=== PATIENT | male | born 1965 | race Caucasian/White ===

== ENCOUNTER 2018-12-20 22:05 | Inpatient (IN) | payer BC ==
[~2018-12-20] VITALS: Ht 154.7 cm; Wt 83.9 kg
[2018-12-20] MEDS ORDERED: REVLIMID10 MG PO (22:43)
[2018-12-20] MEDS ORDERED: NORCO 5-325 TA1 EACH ORAL (22:43)
[2018-12-20] MEDS ORDERED: VALACYCLOVIR500 MG ORAL (22:43)
[2018-12-20] MEDS ORDERED: LYRICA75 M1 ORAL (22:43)
[2018-12-20] MEDS ORDERED: ASPIR 8181 MG ORAL (22:43)
[2018-12-20] MEDS ORDERED: DEXAMETHASONE2 MG PO (22:43)
[2018-12-20] MEDS ORDERED: ALLOPURINOL300 M1 ORAL (22:43)
--- NOTE | 2018-12-20 22:46 | NUR ---
ED Nurse Note: PT CAME TO ED FROM HOME. PT HAS HISTORY OF MYLEOMA, PER PT HIS PMD SAID IF HE BEGINS TO LOSE CONTROL ON URINARY CONTINENCE GO TO ER IMMEDIATELY. LATTER STATES PT VISIT.
[2018-12-20 22:47] VITALS: BP 158/97
[2018-12-20 22:58] LABS: HEMATOCRIT 32.6 % (42.0-52.0); HEMOGLOBIN 11.5 G/DL (14.2-18.0); MEAN CORPUSCULAR VOLUME 94 FL (80-99); PLATELET COUNT 311 K/UL (150-450); RED BLOOD COUNT 3.47 M/UL (4.70-6.10); RED CELL DISTRIBUTION WIDTH 11.8 % (11.6-14.8); WHITE BLOOD COUNT 16.7 K/UL (4.8-10.8)
[2018-12-20 22:59] LABS: BASOPHILS % (AUTO) 0.7 % (0.0-2.0); EOSINOPHILS % (AUTO) 0.1 % (0.0-3.0); LYMPHOCYTES % (AUTO) 5.5 % (20.0-45.0); MONOCYTES % (AUTO) 4.1 % (1.0-10.0); NEUTROPHILS % (AUTO) 89.7 % (45.0-75.0)
[2018-12-20 23:09] LABS: ANION GAP 13 mmol/L (5-15); BLOOD UREA NITROGEN 21 mg/dL (7-18); CALCIUM 8.1 MG/DL (8.5-10.1); CARBON DIOXIDE 24 MMOL/L (21-32); CHLORIDE 96 MMOL/L (98-107); CREATININE 0.9 MG/DL (0.55-1.30); POTASSIUM 4.2 MMOL/L (3.5-5.1); SODIUM 133 MMOL/L (136-145)
[2018-12-20 23:12] LABS: INR 0.9 (0.9-1.1)
[2018-12-20 23:14] LABS: ALANINE AMINOTRANSFERASE 83 U/L (12-78); ALBUMIN 3.4 G/DL (3.4-5.0); ALKALINE PHOSPHATASE 52 U/L (46-116); ASPARTATE AMINO TRANSFERASE 17 U/L (15-37); BILIRUBIN,TOTAL 0.4 MG/DL (0.2-1.0)
--- NOTE | 2018-12-20 23:15 | Emergency Room Report ---
History of Present Illness General Chief Complaint: General Complaint Source: Patient Present Illness HPI Patient present with complaints of complex medical history Patient has previous history of multiple myeloma After chemotherapy was felt to be in remission Recently the patient again was diagnosed with multiple myeloma MRI recently about 10 days ago showing mass in the T11-T12 region Patient has spoken to his back specialist Was reported to return to the emergency room if there is any urinary symptoms Patient reports that earlier this evening before wanting to go to the restroom he had loss of urination He has been having difficulty with ambulation and pain in his lower extremities for the past several months Denies any change with weakness in the legs Denies any change with neuropathy Denies any fevers or chills patient also had initial chemotherapy this past Allergies: Coded Allergies: LATEX (Verified Allergy, Unknown, 12/20/18) Patient History Past Medical History: see triage record Pertinent Family History: none Reviewed Nursing Documentation: PMH: Agreed; PSxH: Agreed Nursing Documentation-PMH Hx Cancer: Yes - MULTIPLE MYELOMA Review of Systems All Other Systems: negative except mentioned in HPI Physical Exam Vital Signs Date Time Temp Pulse Resp B/P (MAP) Pulse Ox O2 Delivery O2 Flow Rate FiO2 12/20/18 22:33 98.2 100 16 158/97 100 Room Air Sp02 EP Interpretation: reviewed, normal General Appearance: well appearing, no apparent distress Head: normocephalic, atraumatic Eyes: bilateral eye PERRL, bilateral eye EOMI ENT: normal pharynx Neck: supple Respiratory: lungs clear, no retraction, no accessory muscle use Cardiovascular #1: regular rate, rhythm Gastrointestinal: non tender, soft Genitourinary: no CVA tenderness Musculoskeletal: other - Patient moving both lower extremities without focal deficit, sensory is intact Neurologic: alert, oriented x3 Skin: no rash, warm/dry Lymphatic: no adenopathy Medical Decision Making Diagnostic Impression: Primary Impression: Multiple myeloma Additional Impression: Loss of bladder control ER Course Patient presents with a complex medical history Recent MRI shows concerning findings Case was discussed with Dr. Lara He is aware the patient has had a recent consultation Multiple imaging was obtained as well It is not clear if the recent imaging had shown similar findings however radiology is reading multiple metastatic disease unclear if these are related to possible multiple myeloma lesions Patient received further steroids may ER IV hydration And requires inpatient evaluation Labs Test 12/20/18 22:45 White Blood Count 16.7 K/UL (4.8-10.8) Red Blood Count 3.47 M/UL (4.70-6.10) Hemoglobin 11.5 G/DL (14.2-18.0) Hematocrit 32.6 % (42.0-52.0) Mean Corpuscular Volume 94 FL (80-99) Mean Corpuscular Hemoglobin 33.1 PG (27.0-31.0) Mean Corpuscular Hemoglobin Concent 35.3 G/DL (32.0-36.0) Red Cell Distribution Width 11.8 % (11.6-14.8) Platelet Count 311 K/UL (150-450) Mean Platelet Volume 6.0 FL (6.5-10.1) Neutrophils (%) (Auto) 89.7 % (45.0-75.0) Lymphocytes (%) (Auto) 5.5 % (20.0-45.0) Monocytes (%) (Auto) 4.1 % (1.0-10.0) Eosinophils (%) (Auto) 0.1 % (0.0-3.0) Basophils (%) (Auto) 0.7 % (0.0-2.0) Prothrombin Time 9.6 SEC (9.30-11.50) Prothromb Time International Ratio 0.9 (0.9-1.1) Activated Partial Thromboplast Time 22 SEC (23-33) Sodium Level 133 MMOL/L (136-145) Potassium Level 4.2 MMOL/L (3.5-5.1) Chloride Level 96 MMOL/L (98-107) Carbon Dioxide Level 24 MMOL/L (21-32) Anion Gap 13 mmol/L (5-15) Blood Urea Nitrogen 21 mg/dL (7-18) Creatinine 0.9 MG/DL (0.55-1.30) Estimat Glomerular Filtration Rate > 60 mL/min (>60) Glucose Level 94 MG/DL (74-106) Calcium Level 8.1 MG/DL (8.5-10.1) Total Bilirubin 0.4 MG/DL (0.2-1.0) Aspartate Amino Transf (AST/SGOT) 17 U/L (15-37) Alanine Aminotransferase (ALT/SGPT) 83 U/L (12-78) Alkaline Phosphatase 52 U/L (46-116) Total Protein 6.8 G/DL (6.4-8.2) Albumin 3.4 G/DL (3.4-5.0) Globulin 3.4 g/dL Albumin/Globulin Ratio 1.0 (1.0-2.7) Rhythm Strip Diag. Results EP Interpretation: yes Rate: 66 Rhythm: NSR, no PVC's, no ectopy Chest X-Ray Diagnostic Results Chest X-Ray Diagnostic Results : Chest X-Ray Ordered: Yes # of Views/Limited/Complete: 1 View Indication: Chest Pain EP Interpretation: Yes Interpretation: no consolidation, no effusion, no pneumothorax Impression: No acute disease Electronically Signed by: Kamar Quezada DO CT/MRI/US Diagnostic Results CT/MRI/US Diagnostic Results : Impression MRI T-spine:Refer to the final report for full specifics, report at this time reading multiple metastatic disease multiple thoracic spine. T12 compression fracture with retropulsion MRI L-spine:Refer to the note for the full specifics, similar to the T-spine CT T-spineRead by radiologist multiple metastatic disease lesions Last Vital Signs Date Time Temp Pulse Resp B/P (MAP) Pulse Ox O2 Delivery O2 Flow Rate FiO2 12/20/18 22:47 98.2 100 16 158/97 100 Room Air Status: improved Disposition: ADMITTED INPATIENT Condition: Serious Referrals: NON PHYSICIAN (PCP) Kamar Quezada DO Dec 20, 2018 23:15
[2018-12-20] MEDS ORDERED: Solu-MEDROL 125mg Inj IVP ONE (23:30)
[2018-12-20] MEDS ORDERED: Morphine Sulfate 4mg/ml Inj (IV USE ONLY) IVP ONE (23:30)
--- NOTE | 2018-12-20 23:38 | NUR ---
ED Nurse Note: ERMD ORDERED MORHPINE FOR PT, INFORMED ERMD, THAT PT HAS NO PAIN AT THE MOMENT. PER ERMD UTILIZE PRN.
[2018-12-20] MEDS ORDERED: D5 1/2NS 1,000 ML IV SCH (23:52)
--- NOTE | 2018-12-20 23:52 | NUR ---
ED Nurse Note: PT WENT TO CT
--- NOTE | 2018-12-20 23:52 | NUR ---
ED Nurse Note: TELEPHONE REPORT GIVEN TO DYAN HENNESSY
[2018-12-21] VITALS (9 sets, daily range): BP systolic 103–128; BP diastolic 61–78
[2018-12-21] MEDS ORDERED: LORazepam Inj 2mg/ml 1ml IV PRN
[2018-12-21] MEDS ORDERED: Miralax 17gm pkt ORAL PRN
[2018-12-21] MEDS ORDERED: Zolpidem 5mg tab ORAL PRN
[2018-12-21] MEDS ORDERED: HYDROcodone/Acetamin 5/325 tab ORAL PRN
[2018-12-21] MEDS ORDERED: Mylanta II UD 30ml ORAL PRN
[2018-12-21] MEDS ORDERED: Morphine Sulfate 4mg/ml Inj (IV USE ONLY) IVP PRN
[2018-12-21] MEDS ORDERED: Morphine Sulfate 2mg/ml Inj(IV/IM USE ONLY) IVP PRN
--- NOTE | 2018-12-21 00:25 | NUR ---
ED Nurse Note: PT WAS TAKEN TO MRI WITH PHONG MOODY. PT WAS SENT MS UNIT WITH MONITOR, AND ALL BELONGINGS, SKIN INTACT, PT IS AOX4. VSS, DENIES PAIN AT THE MOMENT
--- NOTE | 2018-12-21 02:30 | NUR ---
NURSE NOTES: Patient received. patient in no acute distress at this time. patient complains of no pain at this time. patient awake and alert x4. patient IV intact and asymptomatic call light within reach. bed in lowest position and locked. wheelchair at bedside. will continue to monitor.
--- NOTE | 2018-12-21 04:32 | NUR ---
NURSE NOTES: patient has been on the floor for over 2 hours. i have called and left messages for Dr. Neves and i have not heard back yet. i informed the nursing forest fire specialist supervisor and my charge nurse and both area aware. will continue to call. also reached out ot dr. bonilla to ask if he can put orders in. have not heard back from [facility] either.
[2018-12-21 06:15] LABS: HEMATOCRIT 31.4 % (42.0-52.0); MEAN CORPUSCULAR VOLUME 95 FL (80-99); PLATELET COUNT 279 K/UL (150-450); RED CELL DISTRIBUTION WIDTH 12.1 % (11.6-14.8); WHITE BLOOD COUNT 18.9 K/UL (4.8-10.8)
[2018-12-21 06:53] LABS: ALANINE AMINOTRANSFERASE 71 U/L (12-78); ALBUMIN 3.1 G/DL (3.4-5.0); ALKALINE PHOSPHATASE 46 U/L (46-116); ANION GAP 10 mmol/L (5-15); ASPARTATE AMINO TRANSFERASE 12 U/L (15-37); BILIRUBIN,TOTAL 0.5 MG/DL (0.2-1.0); BLOOD UREA NITROGEN 26 mg/dL (7-18); CALCIUM 7.9 MG/DL (8.5-10.1); CARBON DIOXIDE 25 MMOL/L (21-32); CHLORIDE 97 MMOL/L (98-107); CREATININE 0.8 MG/DL (0.55-1.30); POTASSIUM 4.4 MMOL/L (3.5-5.1); SODIUM 132 MMOL/L (136-145)
--- NOTE | 2018-12-21 07:23 | NUR ---
NURSE NOTES: orders were put in. tristen schedualed to have surgery this morning. Dr. Abrams was called and left a message to put in order for surgery this morning. endorsed to morning shift nurse.
--- NOTE | 2018-12-21 07:24 | NUR ---
HAND-OFF: Report given to thomas bergeron.
--- NOTE | 2018-12-21 07:43 | NUR ---
NURSE NOTES: During shift change patient alert awake with out no distress, call light with in reach bed at low position and locked, pt. aware pending surgery plan for today no consent order yet waiting the call return from surgeon. pt. NPO and aware not to eat.
[2018-12-21] MEDS: Lyrica 25mg cap ORAL SCH ×3 (09:00→18:00)
[2018-12-21] MEDS: Heparin 5000 units/ml inj SUBQ SCH ×2 (09:00→20:45)
--- NOTE | 2018-12-21 09:30 | NUR ---
NURSE NOTES: Patient refused oral medication stating " I might vomit and i want to skip morning dose" RN explained Dr. Grewal aware and ok to take medication still refused.
--- NOTE | 2018-12-21 09:48 | Diagnostic Imaging Report ---
Indication: Back pain, history of multiple myeloma Technique: Spiral acquisitions obtained through the thoracic spine. No IV contrast utilized. Multiplanar reconstructions were generated. Total dose length product 1323.45 mGycm. CTDIvol(s) 32.81 mGy. Dose reduction achieved using automated exposure control Comparison: none Findings: There is a large mass occupying most of the T12 vertebral body, also destroying the right pedicle. There is also a large extraspinal component. This mass measures approximately 5 x 3.6 cm in diameter, uncertain craniocaudal dimensions. A separate lesion is seen in the anterior aspect of the T12 vertebral body. There is approximately 20% height loss of the T12 vertebral body and some sclerosis. Lesion also extends into the spinal canal, but extent of spinal canal involvement is uncertain as the lesion is isoattenuating with cord. The sagittal images suggest involvement of most of the spinal canal with extension cephalad posterior to T11. There is evidence of tumor involving and expanding the T11-12 neural foramen. Multiple osteolytic lesions are seen elsewhere, including the posterior T11, anterior T10, anterior T9 vertebral bodies, right fifth rib, T4 vertebral body, T3 vertebral body, T2 spinous process. There are also osteolytic lesions involving the L1 and L2 vertebral bodies. The bony alignment is normal. The remaining vertebral body heights are preserved. The disc spaces are preserved. No other acute fractures. The remaining included extraspinal soft tissues are unremarkable. Impression: Positive for soft tissue mass involving the T12 vertebral body, posterior elements, and adjacent spinal canal as well as significant extraspinal involvement. Spinal cord compression is possible at this level. There is a mild compression fracture deformity as well, presumably pathologic compression fracture, age indeterminate Evidence of extensive metastatic involvement in other vertebral segments, as detailed above. MRI is recommended to better characterize findings most likely represent myelomatous deposits, given known history of multiple myeloma. This agrees with the preliminary interpretation provided overnight by [employer] teleradiology service. The CT scanner at [facility] is accredited by the [employer] and the scans are performed using protocols designed to limit radiation exposure to as low as reasonably achievable to attain images of sufficient resolution adequate for diagnostic evaluation.
--- NOTE | 2018-12-21 10:32 | Diagnostic Imaging Report ---
Indication: Back pain, history of multiple myeloma, recent history of lower thoracic spine mass Technique: Sagittal T1 and T2 fast spin echo, sagittal STIR, axial T1 and T2 fast spin-echo images of the lumbar spine Comparison: Reference made to thoracic spine CT scan performed one hour earlier Findings: There is a mass involving most of the T12 vertebral body. This extends into the right T12 pedicle and the pedicular portion of the mass extends into the spinal canal, occupying most of the spinal canal and compressing the distal cord and conus medullaris. The posterior vertebral body component of the mass also protrudes posteriorly into the spinal canal, protruding approximately 8 mm posterior to the posterior margin of the vertebral body. The mass also occupies the right T11-12 neural foramen. The intraspinal component of the mass coming off of the pedicle measures approximately 16 cm transverse by 13 cm AP by 4.8 cm craniocaudad. It is predominantly on the right side of the spinal canal. The combination of mass effect narrows the spinal canal by approximately 80% and there is complete obliteration of the surrounding cerebrospinal fluid. The mass demonstrates very low T1 signal and high T2 signal. There is approximately 20% loss of height of the vertebral body. Other masses are demonstrated within the L1 and L2 vertebral bodies, as well as within posterior T11.. These do not involve the spinal canal. Masses are also seen in the right side of the sacrum and in the bilateral iliac bones The lumbar vertebral body heights are preserved. The lumbar disc spaces are preserved. Below T12, no significant disc bulge or protrusion, spinal stenosis, or neural foraminal stenosis. There is distention of the bladder. The included extra spinal soft tissues are otherwise unremarkable. Impression: Extensive T12 lesion, also described on separate thoracic spine MRI report, resulting in compression of the distal cord, conus medullaris, and proximal cauda equina as well as a T12 pathologic compression fracture Other lesions, presumably disseminated multiple myeloma given stated clinical history, within T11, L1, L2, the sacrum, and bilateral iliac bones. No evidence of neural compromise or pathologic fracture related to such Distended bladder This agrees with the preliminary interpretation provided overnight by [employer] teleradiology service.
--- NOTE | 2018-12-21 10:37 | Diagnostic Imaging Report ---
Indications: Back pain Technique: Spiral acquisitions obtained through the lumbar spine. Multiplanar reconstructions were generated. No IV contrast utilized. Total dose length product 541.08 mGycm. CTDIvol(s) 17.94 mGy. Dose reduction achieved using automated exposure control Comparison: Lumbar spine MRI of 8 hours earlier Findings: There is an extensive osteolytic lesion involving the T12 vertebral body, right-sided posterior elements, and extending into the spinal canal, described in detail on separate thoracic spine CT and MRI. Osteolytic lesions are seen involving the right anterolateral L1 vertebral body, the anterior L2 vertebral body, the right sacrum, and bilateral iliac bones At L4-5, there is circumferential annular bulge which does not significantly compromise the spinal canal or neural foramina. At the other levels, no significant disc bulge or protrusion, spinal stenosis, or neural foraminal stenosis. There is mild vacuum disc formation at T12-L1. The remaining discs are preserved. A punctate calcification is seen in a right renal lower pole calyx. The bladder is massively distended. Impression: T12 extensive osteolytic lesion, described in detail on separate thoracic spine CT reports, resulting in the region of the spinal canal and a T12 compression fracture. Other osteolytic lesions seen in the L1 and L2 vertebral bodies, right sacrum, and bilateral iliac bones. Most likely myeloma deposits given stated clinical history of multiple myeloma Massively distended bladder Nonobstructive right lower pole renal calyceal calculus incidentally noted The CT scanner at [facility] is accredited by the [employer] and the scans are performed using protocols designed to limit radiation exposure to as low as reasonably achievable to attain images of sufficient resolution adequate for diagnostic evaluation.
--- NOTE | 2018-12-21 10:46 | Diagnostic Imaging Report ---
Indication: Back pain, history multiple myeloma, unable to urinate Technique: Sagittal T1 fast spin echo, sagittal T2 fast echo, sagittal STIR, axial T2 fast spin echo images were obtained through the thoracic spine Comparison: none Findings: There is a large mass demonstrating decreased T1 signal, mildly decreased T2 signal, markedly increased STIR signal involving the T12 vertebral body. Posteriorly, this invades into the spinal canal occupying about half of the anterior diameter of the spinal canal. This lesion also extends into the right pedicle, and the periventricular component results in the large pedunculated extra-axial mass within the right side of the spinal canal which measures approximately 13 mm AP by 12 mm transverse by 45 mm craniocaudad. This component extends cephalad posterior to the T11-12 disc and T11 vertebral body. The posterior and the paraventricular component result in approximately 80% narrowing of the spinal canal at this level, with lateral displacement and compression of the distal cord, conus medullaris, and proximal cauda equina. There is mild cord edema at this level. There is approximate 20% loss of height of the T12 vertebral body. There is a lesion involving and expanding the T2 spinous process. Other lesions are identified within questionably the T3 spinous process, within the T3 and T4 vertebral bodies, within the T9 vertebral body and right pedicle, small focus within the T10 vertebral body, and a lesion within the posterior left side of the T11 vertebral body. The T11 lesion very slightly invades the anterior left lateral aspect of the spinal canal and indents the dura. The included extra spinal soft tissues are unremarkable. Impression: Extensive tumor involving the T12 vertebral body, with invasion of the spinal canal, evidence of distal cord/conus medullaris/proximal cauda equina compression, as well as a pathologic T12 compression fracture. Evidence of a slight degree of myelomalacia as a result Multiple other deposits of tumor as detailed on a level by level basis above. Note that there is minimal spinal canal invasion by the T10-11 lesion. Findings most likely represent myelomatous deposits, given stated clinical history of multiple myeloma.. This agrees with the preliminary interpretation provided overnight by [employer].
--- NOTE | 2018-12-21 10:50 | Diagnostic Imaging Report ---
Indication: Cough Technique: One view of the chest Comparison: none Findings: Lungs and pleural spaces are clear. Heart size is normal Impression: No acute process
[2018-12-21] MEDS ORDERED: Vancomycin 1gm vial IVPB ONE (10:52)
[2018-12-21] MEDS ORDERED: Thrombin 5000 units TOPIC ONE ×3 (10:53→13:14)
[2018-12-21] MEDS ORDERED: Bacitracin 50000 Units Vial ONE ×3 (10:53→15:50)
[2018-12-21] MEDS ORDERED: Gelfoam Size TOPIC ONE (10:53)
[2018-12-21] MEDS ORDERED: Bupivacaine w/Epi 0.5% 30ml Vial INJ ONE (10:53)
--- NOTE | 2018-12-21 10:53 | History and Physical ---
History of Present Illness General Date patient seen: Dec 21, 2018 Reason for Hospitalization: General Complaint Present Illness HPI 53 year old male with hx of Multiple myeloma s/p chemo, and Decadron, presented to ER with CC of loss of control of bladder. An MRI of spine showed " presumably disseminated multiple myeloma given stated clinical history, within T11, L1, L2, the sacrum, and bilateral iliac bones". pt I admitted to surgical unit for further evaluation. Allergies: Coded Allergies: LATEX (Verified Allergy, Unknown, 12/20/18) Medication History Scheduled Allopurinol* (Allopurinol*), 300 MG ORAL DAILY, (Reported) Aspirin* (Aspir 81*), 81 MG ORAL DAILY, (Reported) Dexamethasone* (Decadron*), 8 MG PO QID, (Reported) Lenalidomide (Revlimid), 10 MG PO DAILY, (Reported) Pregabalin* (Lyrica*), 25 MG ORAL THREE TIMES A DAY, (Reported) Valacyclovir Hcl* (Valtrex*), 1,000 MG ORAL DAILY, (Reported) Scheduled PRN Hydrocodone Bit/Acetaminophen 5-325* ([place] 5-325*), 1 TAB ORAL Q4H PRN for For Pain, (Reported) Patient History Healthcare decision maker Resuscitation status Full Code Advanced Directive on File Review of Systems All Other Systems: negative except mentioned in HPI Physical Exam General Appearance: WD/WN Lines, tubes and drains: peripheral HEENT: normocephalic, atraumatic Neck: non-tender, normal alignment Respiratory/Chest: chest wall non-tender, lungs clear Breasts: no masses Cardiovascular/Chest: normal peripheral pulses Abdomen: normal bowel sounds, soft Genitourinary/Rectal: normal genital exam Extremities: normal range of motion, non-tender Last 24 Hour Vital Signs Date Time Temp Pulse Resp B/P (MAP) Pulse Ox O2 Delivery O2 Flow Rate FiO2 12/21/18 09:00 Room Air 12/21/18 04:00 98.6 85 18 128/77 (94) 96 12/21/18 02:17 Room Air 12/21/18 00:25 98.2 98 16 147/89 98 Room Air 12/20/18 22:47 98.2 100 16 158/97 100 Room Air 12/20/18 22:47 100 16 Room Air 12/20/18 22:33 98.2 100 16 158/97 100 Room Air Intake and Output 12/20/18 12/21/18 18:59 06:59 Intake Total 1030 ml Output Total 1 ml Balance 1029 ml Intake Oral 30 ml IV Total 1000 ml Output Urine Total 1 ml # Voids 1 Laboratory Tests Test 12/20/18 22:45 12/21/18 05:30 White Blood Count 16.7 K/UL (4.8-10.8) H 18.9 K/UL (4.8-10.8) H Red Blood Count 3.47 M/UL (4.70-6.10) L 3.30 M/UL (4.70-6.10) L Hemoglobin 11.5 G/DL (14.2-18.0) L 11.0 G/DL (14.2-18.0) L Hematocrit 32.6 % (42.0-52.0) L 31.4 % (42.0-52.0) L Mean Corpuscular Volume 94 FL (80-99) 95 FL (80-99) Mean Corpuscular Hemoglobin 33.1 PG (27.0-31.0) H 33.3 PG (27.0-31.0) H Mean Corpuscular Hemoglobin Concent 35.3 G/DL (32.0-36.0) 35.0 G/DL (32.0-36.0) Red Cell Distribution Width 11.8 % (11.6-14.8) 12.1 % (11.6-14.8) Platelet Count 311 K/UL (150-450) 279 K/UL (150-450) Mean Platelet Volume 6.0 FL (6.5-10.1) L 6.8 FL (6.5-10.1) Neutrophils (%) (Auto) 89.7 % (45.0-75.0) H % (45.0-75.0) Lymphocytes (%) (Auto) 5.5 % (20.0-45.0) L % (20.0-45.0) Monocytes (%) (Auto) 4.1 % (1.0-10.0) % (1.0-10.0) Eosinophils (%) (Auto) 0.1 % (0.0-3.0) % (0.0-3.0) Basophils (%) (Auto) 0.7 % (0.0-2.0) % (0.0-2.0) Prothrombin Time 9.6 SEC (9.30-11.50) Prothromb Time International Ratio 0.9 (0.9-1.1) Activated Partial Thromboplast Time 22 SEC (23-33) L Sodium Level 133 MMOL/L (136-145) L 132 MMOL/L (136-145) L Potassium Level 4.2 MMOL/L (3.5-5.1) 4.4 MMOL/L (3.5-5.1) Chloride Level 96 MMOL/L (98-107) L 97 MMOL/L (98-107) L Carbon Dioxide Level 24 MMOL/L (21-32) 25 MMOL/L (21-32) Anion Gap 13 mmol/L (5-15) 10 mmol/L (5-15) Blood Urea Nitrogen 21 mg/dL (7-18) H 26 mg/dL (7-18) H Creatinine 0.9 MG/DL (0.55-1.30) 0.8 MG/DL (0.55-1.30) Estimat Glomerular Filtration Rate > 60 mL/min (>60) > 60 mL/min (>60) Glucose Level 94 MG/DL (74-106) 127 MG/DL (74-106) H Calcium Level 8.1 MG/DL (8.5-10.1) L 7.9 MG/DL (8.5-10.1) L Total Bilirubin 0.4 MG/DL (0.2-1.0) 0.5 MG/DL (0.2-1.0) Aspartate Amino Transf (AST/SGOT) 17 U/L (15-37) 12 U/L (15-37) L Alanine Aminotransferase (ALT/SGPT) 83 U/L (12-78) H 71 U/L (12-78) Alkaline Phosphatase 52 U/L (46-116) 46 U/L (46-116) Total Protein 6.8 G/DL (6.4-8.2) 6.3 G/DL (6.4-8.2) L Albumin 3.4 G/DL (3.4-5.0) 3.1 G/DL (3.4-5.0) L Globulin 3.4 g/dL 3.2 g/dL Albumin/Globulin Ratio 1.0 (1.0-2.7) 1.0 (1.0-2.7) Neutrophils % (Manual) Pending Lymphocytes % (Manual) Pending Platelet Estimate Pending Platelet Morphology Pending Thyroid Stimulating Hormone (TSH) 0.229 uiU/mL (0.358-3.740) Height (Feet): 5 Height (Inches): 0.90 Weight (Pounds): 197 Medications Current Medications Medications (Trade) Dose Ordered Sig/Stephane Route PRN Reason Start Time Stop Time Status Last Admin Dose Admin Acetaminophen (Tylenol) 650 mg Q4H PRN ORAL fever 12/21/18 00:00 01/20/19 00:00 Acetaminophen/ Hydrocodone Bitart ([place] 5/325) 1 tab Q4H PRN ORAL For Pain 12/21/18 00:00 12/28/18 00:00 Al Hydroxide/Mg Hydroxide (Mylanta II) 30 ml Q6H PRN ORAL dyspepsia 12/21/18 00:00 01/20/19 00:00 Allopurinol (Allopurinol) 300 mg DAILY ORAL 12/21/18 09:00 01/20/19 08:59 Dexamethasone (Decadron) 8 mg QID ORAL 12/21/18 09:00 01/20/19 08:59 Dextrose (Dextrose 50%) 25 ml Q30M PRN IV Hypoglycemia 12/21/18 00:00 01/20/19 00:00 Dextrose (Dextrose 50%) 50 ml Q30M PRN IV Hypoglycemia 12/21/18 00:00 01/20/19 00:00 Dextrose/Sodium Chloride 1,000 ml @ 50 mls/hr Q20H IV 12/20/18 23:52 01/19/19 23:51 12/20/18 23:52 Heparin Sodium (Porcine) (Heparin 5000 units/ml) 5,000 units EVERY 12 HOURS SUBQ 12/21/18 09:00 01/20/19 08:59 Lorazepam (Ativan 2mg/ml 1ml) 0.5 mg Q4H PRN IV For Anxiety 12/21/18 00:00 12/28/18 00:00 Morphine Sulfate (Morphine Sulfate) 2 mg EVERY 4 HOURS PRN IVP For Pain 4-6 12/21/18 00:00 12/28/18 00:00 Morphine Sulfate (Morphine Sulfate) 4 mg Q4H PRN IVP For Pain 7-10 12/21/18 00:00 12/28/18 00:00 Ondansetron HCl (Zofran) 4 mg Q6H PRN IVP Nausea & Vomiting 12/21/18 00:00 01/20/19 00:00 Polyethylene Glycol (Miralax) 17 gm HSPRN PRN ORAL Constipation 12/21/18 00:00 01/20/19 00:00 Pregabalin (Lyrica) 25 mg TID ORAL 12/21/18 09:00 01/20/19 08:59 Zolpidem Tartrate (Ambien) 5 mg HSPRN PRN ORAL Insomnia 12/21/18 00:00 12/28/18 00:00 Assessment/Plan Problem List: (1) Metastatic multiple myeloma to bone ICD Codes: C90.00 - Multiple myeloma not having achieved remission SNOMED: 973008388 (2) Multiple myeloma ICD Codes: C90.00 - Multiple myeloma not having achieved remission SNOMED: 079077229 (3) Loss of bladder control ICD Codes: R32 - Unspecified urinary incontinence SNOMED: 014271683 Assessment/Plan pt is medically clear to undergo spine surgery. Paco Vanegas MD Dec 21, 2018 10:53
--- NOTE | 2018-12-21 11:00 | NUR ---
NURSE NOTES: Patient transported to OR awake alert with out no distress family at bedside. Low Na and low APTT lab result notified to Dr. nunn and Dr. Grewal.
[2018-12-21] MEDS ORDERED: Heparin 5000 units/ml inj ONE (11:15)
--- NOTE | 2018-12-21 11:23 | NUR ---
CASE MANAGEMENT:REVIEW 53 YR OLD MALE FROM HOME TO ER CC: PARTIAL PARALYSIS AND LOSS OF BLADDER CONTROL PMH: CHRONIC BACK PAIN. MULTIPLE MYELOMA SI: MULTIPLE MYELOMA 98.3 100 16 158/97 100% ON RA WBC+16.7 NA-133 IS: MRI SPINE CT SPINE : TO MED/SURG 3 EAST PLAN: CONSENT FOR LAMINECTOMY AND RESECTION OF TUMOR
[2018-12-21] MEDS ORDERED: fentaNYL 100 mcg/2 mL IV ONE ×2 (11:26→12:49)
[2018-12-21] MEDS ORDERED: Midazolam 2mg/2ml Inj ONE ×2 (11:26→15:06)
[2018-12-21] MEDS ORDERED: Succinylcholine 20mg/ml 10ml vial ONE (11:38)
[2018-12-21] MEDS ORDERED: Zemuron 50mg/5ml Inj IV ONE (11:38)
[2018-12-21] MEDS ORDERED: Propofol 1,000mg/ 100ml btl IV ONE (12:00)
[2018-12-21] MEDS ORDERED: Sterile Water Irrig 1000ml IRRIG ONE (12:00)
[2018-12-21] MEDS ORDERED: LR 1000ml ONE (12:00)
[2018-12-21] MEDS ORDERED: NS Irrig 1000ml ONE (12:00)
[2018-12-21] MEDS ORDERED: Neostigmine 1mg/ml 10ml Inj ONE (12:00)
--- NOTE | 2018-12-21 12:15 | Pre-Procedure Note/Attestation ---
Pre-Procedure Note/Attestation Complete Prior to Procedure Procedure Narrative: T11-L1 decompression/laminectomy/tumor resection. PSF T8-L3 Indications for Procedure Pre-Operative Diagnosis: Multiple myeloma, cord compression T11-12, paraparesis Attestation I attest that I discussed the nature of the procedure; its benefits; risks and complications; and alternatives (and the risks and benefits of such alternatives ), prior to the procedure, with the patient (or the patient's legal electroplating sales representative). I attest that, if there was a reasonable possibility of needing a blood transfusion, the patient (or the patient's legal electroplating sales representative) was given the [facility] standardized written summary, pursuant to the Adis Teofilo Blood Safety Act ([place] Health and Safety Code # 1645, as amended). I attest that I re-evaluated the patient just prior to the surgery and that there has been no change in the patient's H&P, except as documented below: Harshad Abrams MD Dec 21, 2018 12:15
[2018-12-21] MEDS ORDERED: PCA Education Pamphlet MISC ONE (13:30)
[2018-12-21] MEDS ORDERED: Rate Change PCA 1 Each MISC PRN (13:30)
[2018-12-21] MEDS ORDERED: Morphine Sulfate 2mg/ml Inj(IV/IM USE ONLY) IM PRN (13:30)
--- NOTE | 2018-12-21 13:34 | Anethesia Preoperative Eval ---
Anesthesia Pre-op PMH/ROS General Date of Evaluation: Dec 21, 2018 Time of Evaluation: 11:40 Anesthesiologist: Saray ASA Score: ASA 3 Mallampati Score Class I : Soft palate, uvula, fauces, pillars visible Class II: Soft palate, uvula, fauces visible Class III: Soft palate, base of uvula visible Class IV: Only hard plate visible Mallampati Classification: Class II Surgeon: Jose Alberto Diagnosis: Acute spinal cord compression Surgical Procedure: T1 to L3 decompression with interbody fusion Anesthesia History: none Family History: no anesthesia problems Allergies: Coded Allergies: LATEX (Verified Allergy, Unknown, 12/20/18) Medications: see eMAR Patient NPO?: Yes NPO Date: Dec 21, 2018 NPO Time: 0000 Past Medical History Cardiovascular: Denies: HTN, CAD, MA, valve dz, arrhythmia, other Pulmonary: Denies: asthma, COPD, CARLOS, other Gastrointestinal/Genitourinary: Reports: GERD; Denies: CRI, ESRD, other Neurologic/Psychiatric: Reports: depression/anxiety, other - chronic pain; Denies: dementia, CVA, TIA Endocrine: Denies: DM, hypothyroidism, steroids, other HEENT: Denies: cataract (L), cataract (R), glaucoma, NATIVE (L), NATIVE (R), other Hematology/Immune: Reports: other - metastatic multiple myeloma; Denies: anemia, DVT, bleeding disorder Musculoskeletal/Integumentary: Denies: OA, RA, DJD, DDD, edema, other Other: obesity PMH Narrative: as above PSxH Narrative: Endoscopy,eye Sx Anesthesia Pre-op Phys. Exam Physician Exam Last Vital Signs Date Time Temp Pulse Resp B/P (MAP) Pulse Ox O2 Delivery O2 Flow Rate FiO2 12/21/18 09:00 Room Air 12/21/18 08:00 97.9 86 18 128/77 (94) 96 Constitutional: NAD Neurologic: CN 2-12 intact Cardiovascular: RRR, no M/R/G Respiratory: CTA Gastrointestinal: S/NT/ND Airway Exam Mallampati Score: Class II MO: limited Neck: flexible ROM: limited Teeth: intact Dentures: no upper, no lower Anesthesia Pre-op A/P Labs Hematology Test 12/20/18 22:45 12/21/18 05:30 White Blood Count 16.7 K/UL (4.8-10.8) H 18.9 K/UL (4.8-10.8) H Red Blood Count 3.47 M/UL (4.70-6.10) L 3.30 M/UL (4.70-6.10) L Hemoglobin 11.5 G/DL (14.2-18.0) L 11.0 G/DL (14.2-18.0) L Hematocrit 32.6 % (42.0-52.0) L 31.4 % (42.0-52.0) L Mean Corpuscular Volume 94 FL (80-99) 95 FL (80-99) Mean Corpuscular Hemoglobin 33.1 PG (27.0-31.0) H 33.3 PG (27.0-31.0) H Mean Corpuscular Hemoglobin Concent 35.3 G/DL (32.0-36.0) 35.0 G/DL (32.0-36.0) Red Cell Distribution Width 11.8 % (11.6-14.8) 12.1 % (11.6-14.8) Platelet Count 311 K/UL (150-450) 279 K/UL (150-450) Mean Platelet Volume 6.0 FL (6.5-10.1) L 6.8 FL (6.5-10.1) Neutrophils (%) (Auto) 89.7 % (45.0-75.0) H % (45.0-75.0) Lymphocytes (%) (Auto) 5.5 % (20.0-45.0) L % (20.0-45.0) Monocytes (%) (Auto) 4.1 % (1.0-10.0) % (1.0-10.0) Eosinophils (%) (Auto) 0.1 % (0.0-3.0) % (0.0-3.0) Basophils (%) (Auto) 0.7 % (0.0-2.0) % (0.0-2.0) Differential Total Cells Counted 100 Neutrophils % (Manual) 88 % (45-75) H Lymphocytes % (Manual) 3 % (20-45) L Monocytes % (Manual) 9 % (1-10) Eosinophils % (Manual) 0 % (0-3) Basophils % (Manual) 0 % (0-2) Band Neutrophils 0 % (0-8) Platelet Estimate Adequate Platelet Morphology Normal Hypochromasia 1+ Anisocytosis 1+ Coagulation Test 12/20/18 22:45 Prothrombin Time 9.6 SEC (9.30-11.50) Prothromb Time International Ratio 0.9 (0.9-1.1) Activated Partial Thromboplast Time 22 SEC (23-33) L Chemistry Test 12/20/18 22:45 12/21/18 05:30 Sodium Level 133 MMOL/L (136-145) L 132 MMOL/L (136-145) L Potassium Level 4.2 MMOL/L (3.5-5.1) 4.4 MMOL/L (3.5-5.1) Chloride Level 96 MMOL/L (98-107) L 97 MMOL/L (98-107) L Carbon Dioxide Level 24 MMOL/L (21-32) 25 MMOL/L (21-32) Anion Gap 13 mmol/L (5-15) 10 mmol/L (5-15) Blood Urea Nitrogen 21 mg/dL (7-18) H 26 mg/dL (7-18) H Creatinine 0.9 MG/DL (0.55-1.30) 0.8 MG/DL (0.55-1.30) Estimat Glomerular Filtration Rate > 60 mL/min (>60) > 60 mL/min (>60) Glucose Level 94 MG/DL (74-106) 127 MG/DL (74-106) H Calcium Level 8.1 MG/DL (8.5-10.1) L 7.9 MG/DL (8.5-10.1) L Total Bilirubin 0.4 MG/DL (0.2-1.0) 0.5 MG/DL (0.2-1.0) Aspartate Amino Transf (AST/SGOT) 17 U/L (15-37) 12 U/L (15-37) L Alanine Aminotransferase (ALT/SGPT) 83 U/L (12-78) H 71 U/L (12-78) Alkaline Phosphatase 52 U/L (46-116) 46 U/L (46-116) Total Protein 6.8 G/DL (6.4-8.2) 6.3 G/DL (6.4-8.2) L Albumin 3.4 G/DL (3.4-5.0) 3.1 G/DL (3.4-5.0) L Globulin 3.4 g/dL 3.2 g/dL Albumin/Globulin Ratio 1.0 (1.0-2.7) 1.0 (1.0-2.7) Thyroid Stimulating Hormone (TSH) 0.229 uiU/mL (0.358-3.740) Studies Pre-op Studies: EKG - NSR Risk Assessment & Plan Assessment: ASA 3 Plan: GA with ETT prone position, neuromonitoring Status Change Before Surgery: No Pre-Antibiotics Drug: Ancef 2gr. Given Within 1 Hr of Incision: Yes Time Given: 12:40 Vishnu So MD Dec 21, 2018 13:34
[2018-12-21] MEDS ORDERED: Acetaminophen (Non formulary) 100 ML IV ONE (13:45)
[2018-12-21] MEDS ORDERED: NS Irrig 2000ml IRRIG ONE (14:41)
[2018-12-21] MEDS ORDERED: Propofol 200mg/20ml IV ONE ×3 (15:12→16:51)
[2018-12-21] MEDS ORDERED: Dexamethasone 4mg/ml vial ONE (15:48)
[2018-12-21] MEDS ORDERED: Morphine Sulfate 10mg/ml Inj ONE (15:54)
[2018-12-21] MEDS ORDERED: Glycopyrrolate 0.2mg/ml 1ml Vial ONE (15:58)
[2018-12-21] MEDS ORDERED: Sodium Chloride 10ml vial INJ ONE (15:58)
[2018-12-21] MEDS ORDERED: Hydrogen Peroxide 473ml Bottle TOPIC ONE (16:14)
[2018-12-21] MEDS ORDERED: LR 1000ml 1,000 ML IVLG SCH (17:12)
[2018-12-21] MEDS ORDERED: Midazolam 2mg/2ml Inj IVP PRN (17:15)
[2018-12-21] MEDS ORDERED: Hydromorphone 0.5mg/0.5ml inj IVP PRN (17:15)
[2018-12-21] MEDS ORDERED: DiphenhydrAMINE 50mg/ml Inj IVP PRN (17:15)
[2018-12-21] MEDS ORDERED: Meperidine 50mg/ml Inj(FOR RIGORS ONLY) IV PRN (17:15)
[2018-12-21] MEDS ORDERED: Metoclopramide 10mg/2ml Inj IVP PRN (17:15)
[2018-12-21] MEDS ORDERED: Ketorolac 30mg Inj IV PRN (17:15)
--- NOTE | 2018-12-21 17:45 | Consultation ---
DATE OF CONSULTATION: 12/21/2018 SPINE SURGICAL CONSULTATION CONSULTING PHYSICIAN: Harshad Abrams M.D. REFERRING PHYSICIAN: Elia Neves M.D. CHIEF COMPLAINT: Loss of bowel, bladder function with multiple myeloma and cord compression. HISTORY OF PRESENT ILLNESS: The patient is a very pleasant 53-year-old with a diagnosis of multiple myeloma, who has been on chemotherapy and Decadron, who presented to the ER last night with progressive loss of bowel, bladder function as well as progressive weakness. I had the opportunity to initially evaluate the patient more than a week ago and at that time, the patient's neurologic function was intact with normal bowel, bladder function. Based on the progressive deterioration of neurologic function, surgical intervention was deemed necessary. The patient indicates that as of three months ago, he was able to walk up and down six flights of stairs. However, currently he feels weak and he is unable to go even one flight of stairs. He is continent of bowel, however, recently has developed incontinence of bladder. Surgical intervention is recommended, pending additional up-to-date MRIs and CT scans. Prior MRI did demonstrate cord compression at T11 and T12 secondary to T12 lesion, which had eroded through the posterior vertebral body and had resulted in some degree of cord compression. PAST MEDICAL HISTORY: Significant for multiple myeloma. MEDICATIONS: Please see medication reconciliation report. ALLERGIES: No known drug allergies. The patient is allergic to latex. PHYSICAL EXAMINATION: On physical examination, the patient is lying in hospital bed in the preoperative area. A thorough neurologic evaluation was performed. Upper extremities are intact. Lower extremities demonstrate weakness, 4/5 bilateral iliopsoas, quadriceps, tibialis anterior, gastroc soleus is 3+/4- on the left, but 4 on the right. Sensation is grossly intact. Reflexes are symmetric. DIAGNOSTIC DATA: MRIs, I had an opportunity to review MRI of the thoracic spine and lumbar spine as well as CAT scans of the thoracic spine and lumbar spine. There is expansile lesion at T12 extending up to T11. There is significant cord compromise and compression with shift towards the left of midline. There are multifocal lesions throughout the thoracic and lumbar vertebrae. This is verified on both CT and MRI. The CT also do demonstrate additional detail on pedicle size for sizing purposes. There is notable anterior sclerosis of the vertebral body at T12. DIAGNOSES: 1. Multiple myeloma, active. 2. Loss of bowel, bladder control with progressive paraparesis. PLAN: At this point, I have had a detailed discussion with the patient due to the progressive neurologic deterioration, namely weakness in lower extremities and bladder control, surgical intervention is recommended. The patient is amenable to proceed. Primary goal is to decompress the cord at or about T12, L1 and T11. In addition to this, pedicle fixation will be required, in vision pedicle fixation being necessary with cement augmentation from T8 through L3, however, a shorter construct may be deemed feasible depending on the bone quality, which will be assessed at the time of surgery. Pros, cons, risks, benefits have been discussed and the patient is amenable to proceed. Harshad Abrasm M.D. DR: TOBIN JOB#: [id number] CC:
--- NOTE | 2018-12-21 17:54 | Brief Operative Note ---
Immediate Post Operative Note Operative Note Pre-op Diagnosis: Multiple myeloma, cord compression T11-12, paraparesis Procedure: T10 to L3 PSF, vert augmentation T10, 11, L1 and L2, Laminectomy/tumor resection T11, T12 and pediclectomy and vertebrectomy R t12 Post-op Diagnosis: same as pre-op Findings: consistent w/pre-op dx studies Surgeon: xander Wool Sampler: bryn garcia Anesthesiologist: amy Anesthesia: general Specimen: yes - myeloma Complications: none Condition: stable Fluids: 1500 crystalois, 1 u prbc Estimated Blood Loss: volume - 500 Drains: hemovac Implant(s) used?: Yes - depuy fenestrated screws Harshad Abrams MD Dec 21, 2018 17:54
[2018-12-21] MEDS ORDERED: Milk of Magnesia 30ml Ud ORAL PRN (18:00)
[2018-12-21] MEDS: Docusate 100mg cap ORAL SCH (18:00)
--- NOTE | 2018-12-21 18:27 | Immediate Post-Op Evaluation ---
Immediate Post-Op Evalulation Immediate Post-Op Evalulation Procedure: T10 toL3 laminotomy with decompression and interbody fusion Date of Evaluation: Dec 21, 2018 Time of Evaluation: 18:25 IV Fluids: 1500 Blood Products: Albumin 250 PRBC 1unit Estimated Blood Loss: 500 Urinary Output: 1300 Blood Pressure Systolic: 112 Blood Pressure Diastolic: 72 Pulse Rate: 84 Respiratory Rate: 20 O2 Sat by Pulse Oximetry: 98 Temperature (Fahrenheit): 98.6 Pain Score (1-10): 2 Nausea: No Vomiting: No Complications none Patient Status: reacts, patent, extubated, none Hydration Status: adequate Vishnu So MD Dec 21, 2018 18:27
--- NOTE | 2018-12-21 18:30 | NUR ---
NURSE NOTES: Received a call from Dr. Abrams regarding patient medically necessary to have a private room and family staying in the room. order placed.
[2018-12-21] MEDS: PCA Morphine 30mg/30ml IV PRN (18:54)
[2018-12-21] MEDS: PCA shift volume MISC SCH (19:00)
--- NOTE | 2018-12-21 19:20 | NUR ---
NURSE NOTES: Received pt from PACU via adelina, pt is AOX4, on O2 2 liters via nasal canula, no distress noted. IV R wrist # 18 patent and intact. Pt on FISH CUTTING MACHINE OPERATOR Morphine for pain management. FISH CUTTING MACHINE OPERATOR setting check and verified. Surgical dressing C/D/I, ice pack inpace, SCD inplace, neuro wnl, balderas to gravity yellow output. Bed in lowest position and locked, side rails up x 2, call light within reach. Familes at bed side. Will continue to monitor.
--- NOTE | 2018-12-21 19:30 | NUR ---
HAND-OFF: Report given to Pineda Watkins RN patient just return to the unit awake stable report given to awake overnight monitor nurse.
--- NOTE | 2018-12-21 19:51 | Internal Med Progress Note ---
Subjective Physician Name Uriah Neves Attending Physician Uriah Neves MD Current Medications Medications (Trade) Dose Ordered Sig/Stephane Route PRN Reason Start Time Stop Time Status Last Admin Dose Admin Acetaminophen (Tylenol) 650 mg Q4H PRN ORAL headache or temp>101 12/21/18 18:00 01/20/19 17:59 Acetaminophen/ Hydrocodone Bitart ([place] 5/325) 1 tab Q4H PRN ORAL For Pain 12/21/18 00:00 12/28/18 00:00 Al Hydroxide/Mg Hydroxide (Mylanta II) 30 ml Q6H PRN ORAL dyspepsia 12/21/18 00:00 01/20/19 00:00 Allopurinol (Allopurinol) 300 mg DAILY ORAL 12/21/18 09:00 01/20/19 08:59 Cefazolin Sodium 1 gm/Dextrose 55 ml @ 110 mls/hr EVERY 8 HOURS IV 12/21/18 22:00 12/22/18 14:29 Dexamethasone (Decadron) 8 mg QID ORAL 12/21/18 09:00 01/20/19 08:59 Dextrose (Dextrose 50%) 25 ml Q30M PRN IV Hypoglycemia 12/21/18 00:00 01/20/19 00:00 Dextrose (Dextrose 50%) 50 ml Q30M PRN IV Hypoglycemia 12/21/18 00:00 01/20/19 00:00 Dextrose/Sodium Chloride 1,000 ml @ 100 mls/hr Q10H IV 12/21/18 18:50 01/20/19 18:49 Diphenhydramine HCl (Benadryl) 25 mg Q15M PRN IVP Itching 12/21/18 17:15 12/21/18 21:00 Docusate Sodium (Colace) 100 mg TWICE A DAY ORAL 12/21/18 18:00 01/20/19 17:59 Heparin Sodium (Porcine) (Heparin 5000 units/ml) 5,000 units EVERY 12 HOURS SUBQ 12/21/18 09:00 01/20/19 08:59 Hydromorphone HCl (Dilaudid) 0.5 mg Q5M PRN IVP Severe Pain (Pain Scale 7-10) 12/21/18 17:15 12/21/18 21:00 Ketorolac Tromethamine (Toradol 30mg) 30 mg Q1H PRN IV Severe Breakthru Pain (>7) 12/21/18 17:15 12/21/18 21:00 Lorazepam (Ativan 2mg/ml 1ml) 0.5 mg Q4H PRN IV For Anxiety 12/21/18 00:00 12/28/18 00:00 Magnesium Hydroxide (Mom) 30 ml QIDPRN PRN ORAL Constipation 12/21/18 18:00 01/20/19 17:59 Meperidine HCl (Demerol) 25 mg Q15M PRN IV chills 12/21/18 17:15 12/21/18 21:00 Metoclopramide HCl (Reglan) 10 mg Q1H PRN IVP Nausea & Vomiting 12/21/18 17:15 12/21/18 21:00 Midazolam HCl (Versed 2mg/2ml vial) 1 mg Q15M PRN IVP For Anxiety 12/21/18 17:15 12/21/18 21:00 Miscellaneous Medication (PAPER REWINDER OPERATOR Rate Change) 1 ea PRN MISC rate change 12/21/18 13:30 12/23/18 13:29 Miscellaneous Medication (PAPER REWINDER OPERATOR shift volume) 1 ea Q12HR@0700,1900 MISC 12/21/18 19:00 12/23/18 18:59 Morphine Sulfate 30 ml @ 0 mls/hr PAPER REWINDER OPERATOR Protocol PRN IV For Pain 12/21/18 13:30 12/23/18 13:29 12/21/18 18:54 Morphine Sulfate (Morphine Sulfate) 3 mg Q3H PRN IM Severe Pain (Pain Scale 7-10) 12/21/18 13:30 12/28/18 13:29 Naloxone HCl (Narcan) 0.1 mg PRN IV If RR<10min OR SBP<90 mmHg 12/21/18 13:30 12/23/18 13:29 Ondansetron HCl (Zofran) 4 mg Q6H PRN IVP Nausea & Vomiting 12/21/18 00:00 01/20/19 00:00 Polyethylene Glycol (Miralax) 17 gm HSPRN PRN ORAL Constipation 12/21/18 00:00 01/20/19 00:00 Pregabalin (Lyrica) 25 mg TID ORAL 12/21/18 09:00 01/20/19 08:59 Prochlorperazine (Compazine) 10 mg Q6H PRN IVP Nausea & Vomiting 12/21/18 18:00 01/20/19 17:59 Sodium Chloride 1,000 ml @ 10 mls/hr Q24H IV 12/21/18 17:10 12/21/18 22:00 Temazepam (Restoril) 15 mg HSPRN PRN ORAL Insomnia 12/21/18 18:00 12/28/18 17:59 Allergies: Coded Allergies: LATEX (Verified Allergy, Unknown, 12/20/18) Subjective Awake, alert, responsive, denies any pain, on the PAPER REWINDER OPERATOR pump, status post of T10 to L3 PSF, vert augmentation T10, 11, L1 and L2, Laminectomy/tumor resection T11 , T12 and pediclectomy and vertebrectomy R t12 today. Objective Last Vital Signs Date Time Temp Pulse Resp B/P (MAP) Pulse Ox O2 Delivery O2 Flow Rate FiO2 12/21/18 19:05 97.5 72 20 123/78 99 Nasal Cannula 3 Laboratory Tests Test 12/20/18 22:45 12/21/18 05:30 White Blood Count 16.7 K/UL (4.8-10.8) H 18.9 K/UL (4.8-10.8) H Red Blood Count 3.47 M/UL (4.70-6.10) L 3.30 M/UL (4.70-6.10) L Hemoglobin 11.5 G/DL (14.2-18.0) L 11.0 G/DL (14.2-18.0) L Hematocrit 32.6 % (42.0-52.0) L 31.4 % (42.0-52.0) L Mean Corpuscular Volume 94 FL (80-99) 95 FL (80-99) Mean Corpuscular Hemoglobin 33.1 PG (27.0-31.0) H 33.3 PG (27.0-31.0) H Mean Corpuscular Hemoglobin Concent 35.3 G/DL (32.0-36.0) 35.0 G/DL (32.0-36.0) Red Cell Distribution Width 11.8 % (11.6-14.8) 12.1 % (11.6-14.8) Platelet Count 311 K/UL (150-450) 279 K/UL (150-450) Mean Platelet Volume 6.0 FL (6.5-10.1) L 6.8 FL (6.5-10.1) Neutrophils (%) (Auto) 89.7 % (45.0-75.0) H % (45.0-75.0) Lymphocytes (%) (Auto) 5.5 % (20.0-45.0) L % (20.0-45.0) Monocytes (%) (Auto) 4.1 % (1.0-10.0) % (1.0-10.0) Eosinophils (%) (Auto) 0.1 % (0.0-3.0) % (0.0-3.0) Basophils (%) (Auto) 0.7 % (0.0-2.0) % (0.0-2.0) Prothrombin Time 9.6 SEC (9.30-11.50) Prothromb Time International Ratio 0.9 (0.9-1.1) Activated Partial Thromboplast Time 22 SEC (23-33) L Sodium Level 133 MMOL/L (136-145) L 132 MMOL/L (136-145) L Potassium Level 4.2 MMOL/L (3.5-5.1) 4.4 MMOL/L (3.5-5.1) Chloride Level 96 MMOL/L (98-107) L 97 MMOL/L (98-107) L Carbon Dioxide Level 24 MMOL/L (21-32) 25 MMOL/L (21-32) Anion Gap 13 mmol/L (5-15) 10 mmol/L (5-15) Blood Urea Nitrogen 21 mg/dL (7-18) H 26 mg/dL (7-18) H Creatinine 0.9 MG/DL (0.55-1.30) 0.8 MG/DL (0.55-1.30) Estimat Glomerular Filtration Rate > 60 mL/min (>60) > 60 mL/min (>60) Glucose Level 94 MG/DL (74-106) 127 MG/DL (74-106) H Calcium Level 8.1 MG/DL (8.5-10.1) L 7.9 MG/DL (8.5-10.1) L Total Bilirubin 0.4 MG/DL (0.2-1.0) 0.5 MG/DL (0.2-1.0) Aspartate Amino Transf (AST/SGOT) 17 U/L (15-37) 12 U/L (15-37) L Alanine Aminotransferase (ALT/SGPT) 83 U/L (12-78) H 71 U/L (12-78) Alkaline Phosphatase 52 U/L (46-116) 46 U/L (46-116) Total Protein 6.8 G/DL (6.4-8.2) 6.3 G/DL (6.4-8.2) L Albumin 3.4 G/DL (3.4-5.0) 3.1 G/DL (3.4-5.0) L Globulin 3.4 g/dL 3.2 g/dL Albumin/Globulin Ratio 1.0 (1.0-2.7) 1.0 (1.0-2.7) Differential Total Cells Counted 100 Neutrophils % (Manual) 88 % (45-75) H Lymphocytes % (Manual) 3 % (20-45) L Monocytes % (Manual) 9 % (1-10) Eosinophils % (Manual) 0 % (0-3) Basophils % (Manual) 0 % (0-2) Band Neutrophils 0 % (0-8) Platelet Estimate Adequate Platelet Morphology Normal Hypochromasia 1+ Anisocytosis 1+ Thyroid Stimulating Hormone (TSH) 0.229 uiU/mL (0.358-3.740) Intake and Output 12/20/18 12/21/18 19:00 07:00 Intake Total 1030 ml Output Total 1 ml Balance 1029 ml Intake Oral 30 ml IV Total 1000 ml Output Urine Total 1 ml # Voids 1 Objective General: No acute distress, awake and alert HEENT: NCAT, sclera anicteric, PERRL, EOMI. Neck: Supple, no significant jugular venous distention, Lungs: Good inspiratory effort,, no Wheeze or Rales. Heart: Regular rate and rhythm, normal S1/S2, no murmurs. Abdomen: soft, nontender, nondistended. Normoactive bowel sounds. Back: surgical incision intact dressing. Extremities: No Cyanosis , clubbing or edema. Neuro: A&O x 3, Able to move all extremities Skin: warm, no rashes or lesions Psych: Normal mood and affect Assessment/Plan Assessment/Plan (1) Metastatic multiple myeloma to bone ICD Codes: C90.00 - Multiple myeloma not having achieved remission SNOMED: 046940513 (2) Multiple myeloma ICD Codes: C90.00 - Multiple myeloma not having achieved remission SNOMED: 282094636 (3) Loss of Bowel and bladder function most likely due to cord compression with T11-12, paraparesis S/P T10 to L3 PSF, vert augmentation T10, 11, L1 and L2, Laminectomy/tumor resection T11, T12 and pediclectomy and vertebrectomy R t12 (12/21/2018). Plan: Follow-up with the spine surgery recommendation Dr. Harshad Grewal. DVT prophylaxis with SCD. CODE STATUS is full code. PT mobility in the morning. Discussed with the family member extensively at the bedside with regard to the care will be provided. PAPER REWINDER OPERATOR pump for better pain control. Uriah Neves MD Dec 21, 2018 19:51
--- NOTE | 2018-12-21 20:30 | NUR ---
NURSE NOTES: Dr. Neves came and saw pt, no new orders given.
--- NOTE | 2018-12-21 20:45 | NUR ---
NURSE NOTES: Dr. Rocha came saw pt, did prostate exam, no new orders given.
[2018-12-21] MEDS: D5 1/2NS 1,000 ML IV SCH (20:49)
--- NOTE | 2018-12-21 21:00 | NUR ---
NURSE NOTES: Instructed pt on how to use Insentive spirometry with good return demonstration.
[2018-12-21] MEDS: ceFAZolin sod 1 GM in D5W 55 ML IV SCH (21:28)
--- NOTE | 2018-12-21 22:15 | Operative Note - Dictated ---
DATE OF OPERATION: 12/21/2018 SURGEON: Harshad Abrams M.D. VEHICLE REFINISHER: Alex BRIAN ANESTHESIOLOGIST: Vishnu So M.D. ANESTHESIA TYPE: General endotracheal anesthesia. PREOPERATIVE DIAGNOSES: Multiple myeloma with metastases to the vertebrae and spinal compression T11-T12 with paraparesis and bladder incontinence. PROCEDURE: 1. T10-T11, T12, L1, L2, L3 posterior spinal fusion. 2. T10 through L3 nonsegmental instrumentation using DePuy cannulated and fenestrated screws. 3. Vertebral augmentation with cement, T10, T11, L1, L2 bilaterally. 4. Laminectomy and resection of tumor, T11 and T12, right side. 5. Pediclectomy, vertebrectomy right side T12. 6. Neurodiagnostic monitoring, use of fluoroscopy for supervision and use of operating microscope. ESTIMATED BLOOD LOSS: 500 mL. FLUIDS: 1500 mL crystalloid and 1 unit PRBCs. URINE OUTPUT: 350 mL. Hemovac drain was placed. FINDINGS: Severe spinal cord compression with marked decompression achieved through a right-sided approach at T11-T12. INDICATIONS: Mr. Miller is a very pleasant 53-year-old with progressively worsening back pain ultimately resulting in lower extremity weakness and bladder incontinence. He presented through the emergency room last night and had tae bladder incontinence. On examination this morning preoperatively he was noted to have paraparesis with notable weakness in both lower extremities. Surgical intervention was discussed and the patient elected to proceed. Risks note the patient was explained in detail risks, benefits of surgery to include, but not be limited to those of bleeding, infection, damage to nerves, vessels, tendons, anesthetic risk, allergic reaction, aspiration, possibly . The patient understood and wished to proceed. OPERATIVE PROCEDURE IN DETAIL: The patient was taken to the operating suite after being positioned prone onto a Raheem frame. All bony prominences were well padded. The back was prepped and draped in usual sterile fashion. Subperiosteal dissection was carried out from the T10 through L3. Self-retaining retractors were put in place. Fluoroscopically, the levels were confirmed and identified. At this point, attention was first made at the L2 level and bilateral pedicle screw placement was performed using standard technique using both fluoroscopic and anatomic landmarks. The screw placement was performed using cannulated the PQ screws with fenestration distal tip. The appropriate sized 6 mm screws were placed at L2 bilaterally and at L1 bilaterally. The purchase of the screws were noted to be somewhat soft, especially at the L1 level and thus it was elected to place L3 screws as well. In a standard fashion then screws were placed at the T11 and at T10 bilaterally. Again, these were performed using a high-speed drill pedicle finder ball-tip probe, tap and application of the appropriate sized screws. The thoracic screws were 5 mm lumbar screws were 5 mm in the thoracic and 6 mm in the lumbar. At this point, the screw placement was completed, and pedicle screw stimulation at all the screws were well above 20 milliamps with the exception of the left T11. However, anatomically and radiographically it appeared to be appropriate and the stimulation was still within safe zone at 16 mm. At this juncture, the wound was packed off, the microscope was brought in place and attention was then focused at the T12 and T11 levels. High-speed drill was used to remove the lamina on the right side at the T11 and T12. Extensive tumor was identified compressing the spinal cord rotund micro instruments were used to mobilize and remove this epidural tumor in a piecemeal fashion. At this point, it was noted that there was still a large amount of tumor just anterior to the T12 vertebral body. Therefore, a pediclectomy was performed. Note that the pedicle was partially intact and partially destroyed by tumor (multiple myeloma). At this point, I was then able to skeletonize the T12 nerve root and dissect through and performed a partial vertebrectomy and resection of tumor in the vertebral body through the pedicular approach. There was a moderate amount of blood loss. At this point, FloSeal was deployed into the vertebral body, cavity where the tumor was resected. In addition to the FloSeal hydrogen peroxide was also used as a hemostatic agent within the vertebral body defect. At this juncture, this area was packed off and the pedicle screws were once again explored. The cement tower was then applied at a T11, T10, L1 and L2. Cement was then mixed and inserted through the screw where 1 mL of cement extravasated to allow for additional purchase of the relatively soft bone. At this point, cobalt chrome rods were contoured, cut to length and applied and the locking caps were applied at every level and torqued to the appropriate manufacture setting. At this point, high-speed drill was used to decorticate T10 through L3 graft on bone was then applied to the fusion bed. It was placed along the entirety of the lamina on the left T10-L3 and on the right at the T10-T11 and from L1 through L3. A cross connector was applied at or about T12. Please note that prior to final decortication 2 L of triple antibiotic solution pulsatile lavage was performed on the left side. On the right side it was done just prior to the laminectomy. The patient overall tolerated the procedure well. Fascia was repaired using #1 Vicryl subcutaneous closure using 2-0 Vicryl. Dermabond and sterile dressing was applied. Please note that subfascial vancomycin powder 1 g was used. Medium-sized Hemovac drain was also placed below the fascia and sutured to the skin. The patient overall tolerated the procedure well. Sponge and needle counts were correct. [facility] Almita Abrams DR: John JOB#: [id number] CC: CARLOS
--- NOTE | 2018-12-21 23:00 | Consultation ---
DATE OF CONSULTATION: 12/21/2018 CONSULTING PHYSICIAN: Lb Rocha M.D. REFERRING PHYSICIAN: Harshad Abrams M.D. REASON FOR CONSULTATION: Evaluation of urinary incontinence, possible neurogenic bladder. HISTORY OF PRESENT ILLNESS: This is a pleasant 53-year-old male, who was brought to the emergency room because of loss of control of the bladder apparently. Apparently, he has had some difficulty urinating in the recent past. He has a history of multiple myeloma and he has had imaging studies, which showed lower thoracic and lumbar cord compression secondary to multiple myeloma and paraparesis and he was taken to the operating room by Dr. Abrams today and he underwent lower thoracic as well as lumbar laminectomy to resection panniculectomy. Urology evaluation requested. PAST MEDICAL HISTORY: Significant for above. History of multiple myeloma. PAST SURGICAL HISTORY: As above. MEDICATIONS: Outpatient medications, he is on allopurinol, aspirin, Decadron, Revlimid, Lyrica, Valtrex. ALLERGIES: To latex . 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 FAMILY HISTORY: Noncontributory. REVIEW OF SYSTEMS: As above. PHYSICAL EXAMINATION: GENERAL: A well-developed and well-nourished male, in no acute distress. VITAL SIGNS: Temperature is 97.5, blood pressure is 122/78. HEENT: Normocephalic. NECK: Supple. ABDOMEN: Soft. GENITOURINARY: Bragg in place. Urine grossly yellow. RECTAL: Reveals a smooth prostate about 30 to 40 g. There is a drain coming from his back. LABORATORY DATA: BUN is 26, creatinine 0.8, and potassium 4.4. White count 18.9, hemoglobin 11.0, platelets 279,000. There is no urinalysis on record here. IMAGING STUDIES: The patient has had spine as well as thoracic and lumbar spine MRIs, which were reviewed. There was mention of distention of the bladder. IMPRESSION: 1. Lower urinary tract symptoms and incontinence. 2. Probable neurogenic bladder. 3. BPH. PLAN AND DISCUSSION: The patient again does have lower urinary tract symptoms, presumably secondary to combination of BPH and probable neurogenic bladder because of his cord compression. He did have some urinary incontinence recently. At this time, he has a Bragg catheter indwelling that was placed because of surgery and I did speak with the patient and the family extensively, we will reassess the patient's voiding symptoms after the Bragg catheter is removed, hopefully the next day or two and at that time, decide on the next step. If he does have difficulty voiding retention, he can consider adding Flomax and at some point, I would also recommend cystoscopy and urodynamics to evaluate the urinary tract and this can be done as an outpatient in the future. Thank you for this consultation. Lb Rocha M.D. DR: NIC JOB#: [id number] CC: Uriah Neves M.D.; Fax#: [phone]
[2018-12-22] VITALS: BP 113/77
[2018-12-22 04:00] VITALS: BP 126/79
[2018-12-22] MEDS: D5 1/2NS 1,000 ML IV SCH (05:33)
[2018-12-22] MEDS: ceFAZolin sod 1 GM in D5W 55 ML IV SCH ×2 (05:33→13:30)
[2018-12-22] MEDS: PCA shift volume MISC SCH ×2 (07:27→19:00)
[2018-12-22 07:31] LABS: HEMATOCRIT 26.3 % (42.0-52.0); HEMOGLOBIN 9.3 G/DL (14.2-18.0); MEAN CORPUSCULAR VOLUME 94 FL (80-99); PLATELET COUNT 212 K/UL (150-450); RED BLOOD COUNT 2.79 M/UL (4.70-6.10); RED CELL DISTRIBUTION WIDTH 11.8 % (11.6-14.8); WHITE BLOOD COUNT 12.7 K/UL (4.8-10.8)
--- NOTE | 2018-12-22 07:31 | NUR ---
HAND-OFF: Report given to DYAN Sawyer. Pt in stable condition.
--- NOTE | 2018-12-22 07:48 | NUR ---
NURSE NOTES: Received pt from Pineda Curtis RN, pt was eating no acute distress f/c in place, pain management with [employer]. call light w/in reach.
[2018-12-22 08:00] VITALS: BP 121/74
[2018-12-22 08:01] LABS: ALANINE AMINOTRANSFERASE 132 U/L (12-78); ALBUMIN 2.6 G/DL (3.4-5.0); ALKALINE PHOSPHATASE 38 U/L (46-116); ANION GAP 9 mmol/L (5-15); ASPARTATE AMINO TRANSFERASE 55 U/L (15-37); BILIRUBIN,TOTAL 0.6 MG/DL (0.2-1.0); BLOOD UREA NITROGEN 16 mg/dL (7-18); CALCIUM 6.8 MG/DL (8.5-10.1); CARBON DIOXIDE 27 MMOL/L (21-32); CHLORIDE 97 MMOL/L (98-107); CREATININE 0.8 MG/DL (0.55-1.30); PHOSPHORUS 2.4 MG/DL (2.5-4.9); POTASSIUM 4.2 MMOL/L (3.5-5.1); SODIUM 133 MMOL/L (136-145)
[2018-12-22] MEDS: Docusate 100mg cap ORAL SCH ×2 (08:14→18:37)
[2018-12-22] MEDS: Lyrica 25mg cap ORAL SCH ×2 (08:15→18:38)
[2018-12-22] MEDS: Heparin 5000 units/ml inj SUBQ SCH (08:16)
[2018-12-22] MEDS: PCA Morphine 30mg/30ml IV PRN (08:19)
--- NOTE | 2018-12-22 08:50 | Urology Progress Note ---
Assessment/Plan Assessment/Plan 1. Lower urinary tract symptoms and incontinence. 2. Probable neurogenic bladder. 3. BPH. monitor clinically balderas indwelling reassess voiding sx's after balderas removed voiding trial poss tomorrow will d/w Dr. Abrams Subjective Allergies: Coded Allergies: LATEX (Verified Allergy, Unknown, 12/20/18) Subjective all noted, feels fair Objective Last 24 Hour Vital Signs Date Time Temp Pulse Resp B/P (MAP) Pulse Ox O2 Delivery O2 Flow Rate FiO2 12/22/18 04:00 18 12/22/18 04:00 98.3 79 17 126/79 (95) 98 12/22/18 00:00 98.4 75 18 113/77 (89) 98 12/22/18 00:00 18 12/21/18 21:00 Nasal Cannula 2.0 12/21/18 20:00 20 12/21/18 20:00 98.3 80 16 121/70 (87) 97 12/21/18 19:05 97.5 72 20 123/78 99 Nasal Cannula 3 12/21/18 19:00 72 20 117/61 99 Nasal Cannula 3 12/21/18 18:54 20 12/21/18 18:45 76 20 119/67 99 Nasal Cannula 3 12/21/18 18:27 79 20 119/64 99 Simple Mask 8 12/21/18 18:27 84 20 98 12/21/18 18:22 97 20 113/70 99 Simple Mask 8 12/21/18 18:17 100.2 88 20 103/61 99 Simple Mask 8 12/21/18 09:00 Room Air Intake and Output 12/21/18 12/22/18 19:00 07:00 Intake Total 2100 ml 1095 ml Output Total 1850 ml 2060 ml Balance 250 ml -965 ml Intake Oral 240 ml IV Total 1600 ml 855 ml Blood Product 250 ml Other 250 ml Output Urine Total 1350 ml 1850 ml Drainage Total 210 ml Estimated Blood Loss 500 ml Current Medications Medications (Trade) Dose Ordered Sig/Stephane Route PRN Reason Start Time Stop Time Status Last Admin Dose Admin Acetaminophen (Tylenol) 650 mg Q4H PRN ORAL headache or temp>101 12/21/18 18:00 01/20/19 17:59 Acetaminophen/ Hydrocodone Bitart (Cornish 5/325) 1 tab Q4H PRN ORAL For Pain 12/21/18 00:00 12/28/18 00:00 Al Hydroxide/Mg Hydroxide (Mylanta II) 30 ml Q6H PRN ORAL dyspepsia 12/21/18 00:00 01/20/19 00:00 Allopurinol (Allopurinol) 300 mg DAILY ORAL 12/21/18 09:00 01/20/19 08:59 12/22/18 08:14 Cefazolin Sodium 1 gm/Dextrose 55 ml @ 110 mls/hr EVERY 8 HOURS IV 12/21/18 22:00 12/22/18 14:29 12/22/18 05:33 Dexamethasone (Decadron) 8 mg QID ORAL 12/21/18 09:00 01/20/19 08:59 12/22/18 08:14 Dextrose (Dextrose 50%) 25 ml Q30M PRN IV Hypoglycemia 12/21/18 00:00 01/20/19 00:00 Dextrose (Dextrose 50%) 50 ml Q30M PRN IV Hypoglycemia 12/21/18 00:00 01/20/19 00:00 Dextrose/Sodium Chloride 1,000 ml @ 100 mls/hr Q10H IV 12/21/18 18:50 01/20/19 18:49 12/22/18 05:33 Docusate Sodium (Colace) 100 mg TWICE A DAY ORAL 12/21/18 18:00 01/20/19 17:59 12/22/18 08:14 Heparin Sodium (Porcine) (Heparin 5000 units/ml) 5,000 units EVERY 12 HOURS SUBQ 12/21/18 09:00 01/20/19 08:59 Lorazepam (Ativan 2mg/ml 1ml) 0.5 mg Q4H PRN IV For Anxiety 12/21/18 00:00 12/28/18 00:00 Magnesium Hydroxide (Mom) 30 ml QIDPRN PRN ORAL Constipation 12/21/18 18:00 01/20/19 17:59 Miscellaneous Medication (HEAD CHARRER Rate Change) 1 ea PRN MISC rate change 12/21/18 13:30 12/23/18 13:29 Miscellaneous Medication (HEAD CHARRER shift volume) 1 ea Q12HR@0700,1900 MISC 12/21/18 19:00 12/23/18 18:59 12/22/18 07:27 Morphine Sulfate 30 ml @ 0 mls/hr HEAD CHARRER Protocol PRN IV For Pain 12/21/18 13:30 12/23/18 13:29 12/22/18 08:19 Morphine Sulfate (Morphine Sulfate) 3 mg Q3H PRN IM Severe Pain (Pain Scale 7-10) 12/21/18 13:30 12/28/18 13:29 Naloxone HCl (Narcan) 0.1 mg PRN IV If RR<10min OR SBP<90 mmHg 12/21/18 13:30 12/23/18 13:29 Ondansetron HCl (Zofran) 4 mg Q6H PRN IVP Nausea & Vomiting 12/21/18 00:00 01/20/19 00:00 Polyethylene Glycol (Miralax) 17 gm HSPRN PRN ORAL Constipation 12/21/18 00:00 01/20/19 00:00 Pregabalin (Lyrica) 25 mg TID ORAL 12/21/18 09:00 01/20/19 08:59 12/22/18 08:15 Prochlorperazine (Compazine) 10 mg Q6H PRN IVP Nausea & Vomiting 12/21/18 18:00 01/20/19 17:59 Temazepam (Restoril) 15 mg HSPRN PRN ORAL Insomnia 12/21/18 18:00 12/28/18 17:59 12/22/18 01:26 Laboratory Tests 12/22/18 06:00: White Blood Count 12.7H, Red Blood Count 2.79L, Hemoglobin 9.3L, Hematocrit 26.3L, Mean Corpuscular Volume 94, Mean Corpuscular Hemoglobin 33.3H, Mean Corpuscular Hemoglobin Concent 35.3, Red Cell Distribution Width 11.8, Platelet Count 212, Mean Platelet Volume 6.5, Neutrophils (%) (Auto) , Lymphocytes (%) ( Auto) , Monocytes (%) (Auto) , Eosinophils (%) (Auto) , Basophils (%) (Auto) , Neutrophils % (Manual) [Pending], Lymphocytes % (Manual) [Pending], Platelet Estimate [Pending], Platelet Morphology [Pending], Sodium Level 133L, Potassium Level 4.2, Chloride Level 97L, Carbon Dioxide Level 27, Anion Gap 9, Blood Urea Nitrogen 16, Creatinine 0.8, Estimat Glomerular Filtration Rate > 60, Glucose Level 159H, Calcium Level 6.8L, Phosphorus Level 2.4L, Magnesium Level 2.4, Total Bilirubin 0.6, Aspartate Amino Transf (AST/SGOT) 55H, Alanine Aminotransferase (ALT/SGPT) 132H, Alkaline Phosphatase 38L, Total Protein 5.1L, Albumin 2.6L, Globulin 2.5, Albumin/Globulin Ratio 1.0 Height (Feet): 5 Height (Inches): 0.90 Weight (Pounds): 197 Objective exam stable, balderas indwelling, urine grossly yellow Bamshad,Lb Gutierrez MD Dec 22, 2018 08:50
--- NOTE | 2018-12-22 08:50 | Orthopedic Spine Progress Note ---
Ortho Spine - Progress Note Subjective Symptoms: c/o post-op back pain, improved - as compared to pre-op Objective Vital Signs: Last 24 Hour Vital Signs Date Time Temp Pulse Resp B/P (MAP) Pulse Ox O2 Delivery O2 Flow Rate FiO2 12/22/18 04:00 18 12/22/18 04:00 98.3 79 17 126/79 (95) 98 12/22/18 00:00 98.4 75 18 113/77 (89) 98 12/22/18 00:00 18 12/21/18 21:00 Nasal Cannula 2.0 12/21/18 20:00 20 12/21/18 20:00 98.3 80 16 121/70 (87) 97 12/21/18 19:05 97.5 72 20 123/78 99 Nasal Cannula 3 12/21/18 19:00 72 20 117/61 99 Nasal Cannula 3 12/21/18 18:54 20 12/21/18 18:45 76 20 119/67 99 Nasal Cannula 3 12/21/18 18:27 79 20 119/64 99 Simple Mask 8 12/21/18 18:27 84 20 98 12/21/18 18:22 97 20 113/70 99 Simple Mask 8 12/21/18 18:17 100.2 88 20 103/61 99 Simple Mask 8 12/21/18 09:00 Room Air I&O: Intake and Output 12/21/18 12/22/18 19:00 07:00 Intake Total 2100 ml 1095 ml Output Total 1850 ml 2060 ml Balance 250 ml -965 ml Intake Oral 240 ml IV Total 1600 ml 855 ml Blood Product 250 ml Other 250 ml Output Urine Total 1350 ml 1850 ml Drainage Total 210 ml Estimated Blood Loss 500 ml Wound: clean Drains: hemovac Neuro Status: abnormal - lower extemeties 1/2 grade stronger than preop, but still weak Assessment Procedure Performed: T10 to L3 PSF, vert augmentation T10, 11, L1 and L2, Laminectomy/tumor resection T11, T12 and pediclectomy and vertebrectomy R t12 Plan Plan: PT, pain management, continue drain Additional Comments: pending eval with oncology and urology Harshad Abrams MD Dec 22, 2018 08:50
[2018-12-22] MEDS ORDERED: oxyCODONE 5mg IR tab ORAL PRN (09:00)
[2018-12-22] MEDS ORDERED: D5 1/2NS 1,000 ML IV SCH (09:30)
[2018-12-22] MEDS ORDERED: Tubing IV Secondary IV ONE (09:58)
[2018-12-22] MEDS ORDERED: D5 1/2NS 1000ml IV ONE (09:58)
--- NOTE | 2018-12-22 10:17 | 48 Hour Post Anesthesia Eval ---
Post Anesthesia Evaluation Procedure: T10 to L3 laminotomy with decompression and interbody fusion Date of Evaluation: Dec 22, 2018 Time of Evaluation: 10:15 Blood Pressure Systolic: 115 0: 74 Pulse Rate: 68 Respiratory Rate: 20 Temperature (Fahrenheit): 97.6 O2 Sat by Pulse Oximetry: 98 Airway: patent Nausea: No Vomiting: No Pain Intensity: 2 Hydration Status: adequate Cardiopulmonary Status: stable Mental Status/LOC: patient returned to baseline Follow-up Care/Observations: n/a Post-Anesthesia Complications: none Follow-up care needed: N/A Vishnu So MD Dec 22, 2018 10:17
[2018-12-22] MEDS ORDERED: Morphine Sulfate 2mg/ml Inj(IV/IM USE ONLY) IM PRN (10:30)
--- NOTE | 2018-12-22 11:16 | Pulmonology Progress Note ---
Assessment/Plan Problems: (1) Metastatic multiple myeloma to bone (2) Multiple myeloma (3) Loss of bladder control (4) Spinal stenosis, thoracic Assessment/Plan tolerated the surgery very well pain in controlled check wbc symptomatic treatment dvt prophylaxis Subjective ROS Limited/Unobtainable: No Constitutional: Reports: no symptoms HEENT: Repors: no symptoms Allergies: Coded Allergies: LATEX (Verified Allergy, Unknown, 12/20/18) Objective Last 24 Hour Vital Signs Date Time Temp Pulse Resp B/P (MAP) Pulse Ox O2 Delivery O2 Flow Rate FiO2 12/22/18 10:17 68 20 98 12/22/18 08:00 18 12/22/18 08:00 Room Air 12/22/18 08:00 97.9 80 17 121/74 (90) 97 12/22/18 04:00 18 12/22/18 04:00 98.3 79 17 126/79 (95) 98 12/22/18 00:00 98.4 75 18 113/77 (89) 98 12/22/18 00:00 18 12/21/18 21:00 Nasal Cannula 2.0 12/21/18 20:00 20 12/21/18 20:00 98.3 80 16 121/70 (87) 97 12/21/18 19:05 97.5 72 20 123/78 99 Nasal Cannula 3 12/21/18 19:00 72 20 117/61 99 Nasal Cannula 3 12/21/18 18:54 20 12/21/18 18:45 76 20 119/67 99 Nasal Cannula 3 12/21/18 18:27 79 20 119/64 99 Simple Mask 8 12/21/18 18:27 84 20 98 12/21/18 18:22 97 20 113/70 99 Simple Mask 8 12/21/18 18:17 100.2 88 20 103/61 99 Simple Mask 8 Intake and Output 12/21/18 12/22/18 18:59 06:59 Intake Total 2100 ml 1095 ml Output Total 1850 ml 2060 ml Balance 250 ml -965 ml Intake Oral 240 ml IV Total 1600 ml 855 ml Blood Product 250 ml Other 250 ml Output Urine Total 1350 ml 1850 ml Drainage Total 210 ml Estimated Blood Loss 500 ml General Appearance: WD/WN HEENT: normocephalic Respiratory/Chest: chest wall non-tender, lungs clear Cardiovascular: normal peripheral pulses, normal rate Abdomen: normal bowel sounds, soft, non tender Genitourinary: normal external genitalia Extremities: no cyanosis Skin: no rash Neurologic/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: 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 normal Lymphatic: no neck adenopathy Laboratory Tests 12/22/18 06:00: White Blood Count 12.7H, Red Blood Count 2.79L, Hemoglobin 9.3L, Hematocrit 26.3L, Mean Corpuscular Volume 94, Mean Corpuscular Hemoglobin 33.3H, Mean Corpuscular Hemoglobin Concent 35.3, Red Cell Distribution Width 11.8, Platelet Count 212, Mean Platelet Volume 6.5, Neutrophils (%) (Auto) , Lymphocytes (%) ( Auto) , Monocytes (%) (Auto) , Eosinophils (%) (Auto) , Basophils (%) (Auto) , Differential Total Cells Counted 100, Neutrophils % (Manual) 85H, Lymphocytes % (Manual) 5L, Monocytes % (Manual) 9, Eosinophils % (Manual) 1, Basophils % ( Manual) 0, Band Neutrophils 0, Platelet Estimate Adequate, Platelet Morphology Normal, Red Blood Cell Morphology Normal, Sodium Level 133L, Potassium Level 4.2 , Chloride Level 97L, Carbon Dioxide Level 27, Anion Gap 9, Blood Urea Nitrogen 16, Creatinine 0.8, Estimat Glomerular Filtration Rate > 60, Glucose Level 159H , Calcium Level 6.8L, Phosphorus Level 2.4L, Magnesium Level 2.4, Total Bilirubin 0.6, Aspartate Amino Transf (AST/SGOT) 55H, Alanine Aminotransferase ( ALT/SGPT) 132H, Alkaline Phosphatase 38L, Total Protein 5.1L, Albumin 2.6L, Globulin 2.5, Albumin/Globulin Ratio 1.0 Current Medications Medications (Trade) Dose Ordered Sig/Stephane Route PRN Reason Start Time Stop Time Status Last Admin Dose Admin Acetaminophen (Tylenol) 650 mg Q4H PRN ORAL headache or temp>101 12/21/18 18:00 01/20/19 17:59 Al Hydroxide/Mg Hydroxide (Mylanta II) 30 ml Q6H PRN ORAL dyspepsia 12/21/18 00:00 01/20/19 00:00 Allopurinol (Allopurinol) 300 mg DAILY ORAL 12/21/18 09:00 01/20/19 08:59 12/22/18 08:14 Cefazolin Sodium 1 gm/Dextrose 55 ml @ 110 mls/hr EVERY 8 HOURS IV 12/21/18 22:00 12/22/18 14:29 12/22/18 05:33 Dexamethasone (Decadron) 8 mg QID ORAL 12/21/18 09:00 01/20/19 08:59 12/22/18 08:14 Dextrose (Dextrose 50%) 25 ml Q30M PRN IV Hypoglycemia 12/21/18 00:00 01/20/19 00:00 Dextrose (Dextrose 50%) 50 ml Q30M PRN IV Hypoglycemia 12/21/18 00:00 01/20/19 00:00 Dextrose/Sodium Chloride 1,000 ml @ 50 mls/hr Q20H IV 12/22/18 09:30 01/21/19 09:29 Diphenhydramine HCl (Benadryl) 25 mg Q6H PRN ORAL Itching 12/22/18 09:00 01/21/19 08:59 Docusate Sodium (Colace) 100 mg TWICE A DAY ORAL 12/21/18 18:00 01/20/19 17:59 12/22/18 08:14 Famotidine (Pepcid) 20 mg BID ORAL 12/22/18 09:00 01/21/19 08:59 12/22/18 10:11 Lorazepam (Ativan) 0.5 mg BEDTIME ORAL 12/22/18 21:00 12/29/18 20:59 Magnesium Hydroxide (Mom) 30 ml QIDPRN PRN ORAL Constipation 12/21/18 18:00 01/20/19 17:59 Miscellaneous Medication (PHARMACY GENERAL MANAGER Rate Change) 1 ea PRN MISC rate change 12/21/18 13:30 12/23/18 13:29 Miscellaneous Medication (PHARMACY GENERAL MANAGER shift volume) 1 ea Q12HR@0700,1900 MISC 12/21/18 19:00 12/23/18 18:59 12/22/18 07:27 Morphine Sulfate 30 ml @ 0 mls/hr PHARMACY GENERAL MANAGER Protocol PRN IV For Pain 12/21/18 13:30 12/23/18 13:29 12/22/18 08:19 Morphine Sulfate (Morphine Sulfate) 4 mg Q3H PRN IM Severe Pain (Pain Scale 7-10) 12/22/18 10:30 12/29/18 10:29 Naloxone HCl (Narcan) 0.1 mg PRN IV If RR<10min OR SBP<90 mmHg 12/21/18 13:30 12/23/18 13:29 Ondansetron HCl (Zofran) 4 mg Q4H PRN IVP Nausea & Vomiting 12/22/18 09:00 01/21/19 08:59 Oxycodone HCl (Roxicodone) 10 mg Q4H PRN ORAL Mild Pain (Pain Scale 1-3) 12/22/18 09:00 12/29/18 08:59 Oxycodone HCl (Roxicodone) 15 mg Q3H PRN ORAL Moderate Breakthru Pain (5-7) 12/22/18 09:00 12/29/18 08:59 Patient Own Medication (Patient's Own Med) 1 ea QHS ORAL 12/22/18 21:00 01/21/19 20:59 UNV Polyethylene Glycol (Miralax) 17 gm HSPRN PRN ORAL Constipation 12/21/18 00:00 01/20/19 00:00 Pregabalin (Lyrica) 25 mg BID ORAL 12/22/18 18:00 01/21/19 17:59 Temazepam (Restoril) 15 mg HSPRN PRN ORAL Insomnia 12/21/18 18:00 12/28/18 17:59 12/22/18 01:26 Paco Vanegas MD Dec 22, 2018 11:16
[2018-12-22 12:00] VITALS: BP 123/77
--- NOTE | 2018-12-22 12:18 | NUR ---
NURSE NOTES: send all home medication to pharmacy including chemo medicine. Discharge Prescription was given to patient by Dr. Kiran.
--- NOTE | 2018-12-22 13:32 | NUR ---
CASE MANAGEMENT: REVIEW 12/22/2018 SI: MULTIPLE MYELOMA T 97.7 HR 68 RR 18 B/P 123/77 SATS 98% ON RA WBC 12.7 CL 97 GLU 159 CA 6.8 AST 55 ALT 132 ALP 38 IS: IVF @ 75 mL/HR CEFAZOLIN IV Q8H ATIVAN IV Q8H LYRICA PO BID PEPCID PO BID ALLOPURINOL PO QD : TO MED/SURG 3 EAST PLAN: POST OP CARE
--- NOTE | 2018-12-22 14:38 | Consultation ---
History of Present Illness General Date patient seen: Dec 22, 2018 Chief Complaint: General Complaint Present Illness HPI 53 y/o M with hx of BPH, neurogenic bladder, Multiple myeloma previously on remission and recently found recurrence w/ multiple metastases to thoracic and lumbar spine currently on chemotherapy(started on 12/13) and decadron presented to ED on 12/21 with progressive loss of bowel and bladder function as well as progressive weakness. He is admitted for surgical intervention. Prior MRI demonstrated cord compression at T11 and t12 and T12 lesion. He underwent T10-12 , L1-L3 posterior spinal fusion, Laminectomy and resection of tumor T11 and T12 on the right side and T12 pediclectomy and vertebrectomy on 12/21 Denied f/c upon admission Allergies: Coded Allergies: LATEX (Verified Allergy, Unknown, 12/20/18) Medication History Scheduled Allopurinol* (Allopurinol*), 300 MG ORAL DAILY, (Reported) Aspirin* (Aspir 81*), 81 MG ORAL DAILY, (Reported) Dexamethasone* (Decadron*), 8 MG PO QID, (Reported) Lenalidomide (Revlimid), 10 MG PO DAILY, (Reported) Pregabalin* (Lyrica*), 25 MG ORAL THREE TIMES A DAY, (Reported) Valacyclovir Hcl* (Valtrex*), 1,000 MG ORAL DAILY, (Reported) Scheduled PRN Hydrocodone Bit/Acetaminophen 5-325* (Gordon 5-325*), 1 TAB ORAL Q4H PRN for For Pain, (Reported) Patient History Healthcare decision maker Resuscitation status Full Code Advanced Directive on File Patient History Narrative Pmhx: as above 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 Fhx: non contributory Physical Exam Physical Exam Narrative GENERAL: A well-developed and well-nourished male, in no acute distress. HEENT: Normocephalic. NECK: Supple. ABDOMEN: Soft. GENITOURINARY: Bragg in place. Urine grossly yellow. RECTAL: Reveals a smooth prostate about 30 to 40 g. There is a drain coming from his back. Last 24 Hour Vital Signs Date Time Temp Pulse Resp B/P (MAP) Pulse Ox O2 Delivery O2 Flow Rate FiO2 12/22/18 12:00 97.7 68 123/77 (92) 98 12/22/18 12:00 18 4/6/19 10:17 68 20 98 12/22/18 08:00 18 12/22/18 08:00 Room Air 12/22/18 08:00 97.9 80 17 121/74 (90) 97 12/22/18 04:00 18 12/22/18 04:00 98.3 79 17 126/79 (95) 98 12/22/18 00:00 98.4 75 18 113/77 (89) 98 12/22/18 00:00 18 12/21/18 21:00 Nasal Cannula 2.0 12/21/18 20:00 20 12/21/18 20:00 98.3 80 16 121/70 (87) 97 12/21/18 19:05 97.5 72 20 123/78 99 Nasal Cannula 3 12/21/18 19:00 72 20 117/61 99 Nasal Cannula 3 12/21/18 18:54 20 12/21/18 18:45 76 20 119/67 99 Nasal Cannula 3 12/21/18 18:27 79 20 119/64 99 Simple Mask 8 12/21/18 18:27 84 20 98 12/21/18 18:22 97 20 113/70 99 Simple Mask 8 12/21/18 18:17 100.2 88 20 103/61 99 Simple Mask 8 Intake and Output 12/21/18 12/22/18 18:59 06:59 Intake Total 2100 ml 1095 ml Output Total 1850 ml 2060 ml Balance 250 ml -965 ml Intake Oral 240 ml IV Total 1600 ml 855 ml Blood Product 250 ml Other 250 ml Output Urine Total 1350 ml 1850 ml Drainage Total 210 ml Estimated Blood Loss 500 ml Laboratory Tests Test 12/22/18 06:00 White Blood Count 12.7 K/UL (4.8-10.8) H Red Blood Count 2.79 M/UL (4.70-6.10) L Hemoglobin 9.3 G/DL (14.2-18.0) L Hematocrit 26.3 % (42.0-52.0) L Mean Corpuscular Volume 94 FL (80-99) Mean Corpuscular Hemoglobin 33.3 PG (27.0-31.0) H Mean Corpuscular Hemoglobin Concent 35.3 G/DL (32.0-36.0) Red Cell Distribution Width 11.8 % (11.6-14.8) Platelet Count 212 K/UL (150-450) Mean Platelet Volume 6.5 FL (6.5-10.1) Neutrophils (%) (Auto) % (45.0-75.0) Lymphocytes (%) (Auto) % (20.0-45.0) Monocytes (%) (Auto) % (1.0-10.0) Eosinophils (%) (Auto) % (0.0-3.0) Basophils (%) (Auto) % (0.0-2.0) Differential Total Cells Counted 100 Neutrophils % (Manual) 85 % (45-75) H Lymphocytes % (Manual) 5 % (20-45) L Monocytes % (Manual) 9 % (1-10) Eosinophils % (Manual) 1 % (0-3) Basophils % (Manual) 0 % (0-2) Band Neutrophils 0 % (0-8) Platelet Estimate Adequate Platelet Morphology Normal Red Blood Cell Morphology Normal Sodium Level 133 MMOL/L (136-145) L Potassium Level 4.2 MMOL/L (3.5-5.1) Chloride Level 97 MMOL/L (98-107) L Carbon Dioxide Level 27 MMOL/L (21-32) Anion Gap 9 mmol/L (5-15) Blood Urea Nitrogen 16 mg/dL (7-18) Creatinine 0.8 MG/DL (0.55-1.30) Estimat Glomerular Filtration Rate > 60 mL/min (>60) Glucose Level 159 MG/DL (74-106) H Calcium Level 6.8 MG/DL (8.5-10.1) L Phosphorus Level 2.4 MG/DL (2.5-4.9) L Magnesium Level 2.4 MG/DL (1.8-2.4) Total Bilirubin 0.6 MG/DL (0.2-1.0) Aspartate Amino Transf (AST/SGOT) 55 U/L (15-37) H Alanine Aminotransferase (ALT/SGPT) 132 U/L (12-78) H Alkaline Phosphatase 38 U/L (46-116) L Total Protein 5.1 G/DL (6.4-8.2) L Albumin 2.6 G/DL (3.4-5.0) L Globulin 2.5 g/dL Albumin/Globulin Ratio 1.0 (1.0-2.7) Height (Feet): 5 Height (Inches): 0.90 Weight (Pounds): 197 Medications Current Medications Medications (Trade) Dose Ordered Sig/Stephane Route PRN Reason Start Time Stop Time Status Last Admin Dose Admin Acetaminophen (Tylenol) 650 mg Q4H PRN ORAL headache or temp>101 12/21/18 18:00 01/20/19 17:59 Al Hydroxide/Mg Hydroxide (Mylanta II) 30 ml Q6H PRN ORAL dyspepsia 12/21/18 00:00 01/20/19 00:00 Allopurinol (Allopurinol) 300 mg DAILY ORAL 12/21/18 09:00 01/20/19 08:59 12/22/18 08:14 Cefazolin Sodium 1 gm/Dextrose 55 ml @ 110 mls/hr EVERY 8 HOURS IV 12/21/18 22:00 12/22/18 14:29 12/22/18 13:30 Dexamethasone (Decadron) 8 mg QID ORAL 12/21/18 09:00 01/20/19 08:59 12/22/18 12:44 Dextrose (Dextrose 50%) 25 ml Q30M PRN IV Hypoglycemia 12/21/18 00:00 01/20/19 00:00 Dextrose (Dextrose 50%) 50 ml Q30M PRN IV Hypoglycemia 12/21/18 00:00 01/20/19 00:00 Diphenhydramine HCl (Benadryl) 25 mg Q6H PRN ORAL Itching 12/22/18 09:00 01/21/19 08:59 Docusate Sodium (Colace) 100 mg TWICE A DAY ORAL 12/21/18 18:00 01/20/19 17:59 12/22/18 08:14 Famotidine (Pepcid) 20 mg BID ORAL 12/22/18 09:00 01/21/19 08:59 12/22/18 10:11 Lorazepam (Ativan) 0.5 mg BEDTIME ORAL 12/22/18 21:00 12/29/18 20:59 Magnesium Hydroxide (Mom) 30 ml QIDPRN PRN ORAL Constipation 12/21/18 18:00 01/20/19 17:59 Miscellaneous Medication (MACHINE PRESERVATIVE FILLER Rate Change) 1 ea PRN MISC rate change 12/21/18 13:30 12/23/18 13:29 Miscellaneous Medication (MACHINE PRESERVATIVE FILLER shift volume) 1 ea Q12HR@0700,1900 MISC 12/21/18 19:00 12/23/18 18:59 12/22/18 07:27 Morphine Sulfate 30 ml @ 0 mls/hr MACHINE PRESERVATIVE FILLER Protocol PRN IV For Pain 12/21/18 13:30 12/23/18 13:29 12/22/18 08:19 Morphine Sulfate (Morphine Sulfate) 4 mg Q3H PRN IM Severe Pain (Pain Scale 7-10) 12/22/18 10:30 12/29/18 10:29 Naloxone HCl (Narcan) 0.1 mg PRN IV If RR<10min OR SBP<90 mmHg 12/21/18 13:30 12/23/18 13:29 Ondansetron HCl (Zofran) 4 mg Q4H PRN IVP Nausea & Vomiting 12/22/18 09:00 01/21/19 08:59 Oxycodone HCl (Roxicodone) 10 mg Q4H PRN ORAL Mild Pain (Pain Scale 1-3) 12/22/18 09:00 12/29/18 08:59 Oxycodone HCl (Roxicodone) 15 mg Q3H PRN ORAL Moderate Breakthru Pain (5-7) 12/22/18 09:00 12/29/18 08:59 Patient Own Medication (Patient's Own Med) 1 ea QHS ORAL 12/22/18 21:00 01/21/19 20:59 UNV Polyethylene Glycol (Miralax) 17 gm HSPRN PRN ORAL Constipation 12/21/18 00:00 01/20/19 00:00 Pregabalin (Lyrica) 25 mg BID ORAL 12/22/18 18:00 01/21/19 17:59 Sodium Chloride 1,000 ml @ 75 mls/hr [id number] IV 12/22/18 12:00 01/21/19 11:59 12/22/18 12:44 Temazepam (Restoril) 15 mg HSPRN PRN ORAL Insomnia 12/21/18 18:00 12/28/18 17:59 12/22/18 01:26 Assessment/Plan Assessment/Plan Abx: Ancef 12/21- IV Vancomycin x1 12/21 Assessment: Probable Sepsis vs post-op- but patient immunocompromised- r/o source of infection (specially UTI given neurogenic bladder) Low grade fever Leukocytosis, improving -CXR: no acute disease Multiple myeloma previously on remission and recently found recurrence w/ multiple metastases to thoracic and lumbar spine currently on chemotherapy( started on 12/13) and decadron -12/21 SP T10-12, L1-L3 posterior spinal fusion, Laminectomy and resection of tumor T11 and T12 on the right side and T12 pediclectomy and vertebrectomy on 12/21 -MRI Lumbar spine: : Extensive T12 lesion, also described on separate thoracic spine MRI report, resulting in compression of the distal cord, conus medullaris, and proximal cauda equina as well as a T12 pathologic compression fracture. Other lesions, presumably disseminated multiple myeloma given stated clinical history, within T11, L1, L2, the sacrum, and bilateral iliac bones. No evidence of neural compromise or pathologic fracture related to such. Distended bladder -MRI Thoracic spine: Extensive tumor involving the T12 vertebral body, with invasion of the spinal canal, evidence of distal cord/conus medullaris/ proximal cauda equina compression, as well as a pathologic T12 compression fracture. Evidence of a slight degree of myelomalacia as a result. Multiple other deposits of tumor as detailed on a level by level basis above. Note that there is minimal spinal canal invasion by the T10-11 lesion. Findings most likely represent myelomatous deposits, given stated clinical history of multiple myeloma. BPH neurogenic bladder Plan: -Start empiric Cefepime pending cultures -f/u cx -Monitor CBC/CMP, temperatures -u/a w/ reflex, Bcx x2 -wound care per surgical team -aspiration precautions Thank you for this consultation. Will continue to follow along with you. Discussed with DYAN. Harmony Ruano M.D. Dec 22, 2018 14:38
[2018-12-22 16:00] VITALS: BP 118/68
--- NOTE | 2018-12-22 16:13 | NUR ---
PT Note PT eval completed, treatment initiated. Patient is cooperative and motivated. He presents with LE weakness, L>R. Patient's gait is unsteady and has a narrow base of support. Patient needs PT services to increase his muscle strength and balance to improve his safety in mobility and gait. Addendum: 12/22/18 at 1614 by NATHAN CAPPS PT Amended: Links added.
[2018-12-22] MEDS: Cefepime HCl 1 GM in D5W 55 ML IVPB SCH (16:52)
--- NOTE | 2018-12-22 18:07 | Internal Med Progress Note ---
Subjective Date of Service: Dec 22, 2018 Physician Name Maged Shaver Attending Physician Uriah Neves MD Current Medications Medications (Trade) Dose Ordered Sig/Stephane Route PRN Reason Start Time Stop Time Status Last Admin Dose Admin Acetaminophen (Tylenol) 650 mg Q4H PRN ORAL headache or temp>101 12/21/18 18:00 01/20/19 17:59 Al Hydroxide/Mg Hydroxide (Mylanta II) 30 ml Q6H PRN ORAL dyspepsia 12/21/18 00:00 01/20/19 00:00 Allopurinol (Allopurinol) 300 mg DAILY ORAL 12/21/18 09:00 01/20/19 08:59 12/22/18 08:14 Cefepime HCl 1 gm/ Dextrose 55 ml @ 110 mls/hr Q12HR@0400,1600 IVPB 12/22/18 16:00 12/29/18 15:59 12/22/18 16:52 Dexamethasone (Decadron) 8 mg QID ORAL 12/21/18 09:00 01/20/19 08:59 12/22/18 12:44 Dextrose (Dextrose 50%) 25 ml Q30M PRN IV Hypoglycemia 12/21/18 00:00 01/20/19 00:00 Dextrose (Dextrose 50%) 50 ml Q30M PRN IV Hypoglycemia 12/21/18 00:00 01/20/19 00:00 Diphenhydramine HCl (Benadryl) 25 mg Q6H PRN ORAL Itching 12/22/18 09:00 01/21/19 08:59 Docusate Sodium (Colace) 100 mg TWICE A DAY ORAL 12/21/18 18:00 01/20/19 17:59 12/22/18 08:14 Famotidine (Pepcid) 20 mg BID ORAL 12/22/18 09:00 01/21/19 08:59 12/22/18 10:11 Lorazepam (Ativan) 0.5 mg BEDTIME ORAL 12/22/18 21:00 12/29/18 20:59 Magnesium Hydroxide (Mom) 30 ml QIDPRN PRN ORAL Constipation 12/21/18 18:00 01/20/19 17:59 Miscellaneous Medication (TRANSPORTATION CONSULTANT Rate Change) 1 ea PRN MISC rate change 12/21/18 13:30 12/23/18 13:29 Miscellaneous Medication (TRANSPORTATION CONSULTANT shift volume) 1 ea Q12HR@0700,1900 MISC 12/21/18 19:00 12/23/18 18:59 12/22/18 07:27 Morphine Sulfate 30 ml @ 0 mls/hr TRANSPORTATION CONSULTANT Protocol PRN IV For Pain 12/21/18 13:30 12/23/18 13:29 12/22/18 08:19 Morphine Sulfate (Morphine Sulfate) 4 mg Q3H PRN IM Severe Pain (Pain Scale 7-10) 12/22/18 10:30 12/29/18 10:29 Naloxone HCl (Narcan) 0.1 mg PRN IV If RR<10min OR SBP<90 mmHg 12/21/18 13:30 12/23/18 13:29 Ondansetron HCl (Zofran) 4 mg Q4H PRN IVP Nausea & Vomiting 12/22/18 09:00 01/21/19 08:59 Oxycodone HCl (Roxicodone) 10 mg Q4H PRN ORAL Mild Pain (Pain Scale 1-3) 12/22/18 09:00 12/29/18 08:59 Oxycodone HCl (Roxicodone) 15 mg Q3H PRN ORAL Moderate Breakthru Pain (5-7) 12/22/18 09:00 12/29/18 08:59 Patient Own Medication (Patient's Own Med) 1 ea QHS ORAL 12/22/18 21:00 01/21/19 20:59 UNV Polyethylene Glycol (Miralax) 17 gm HSPRN PRN ORAL Constipation 12/21/18 00:00 01/20/19 00:00 Pregabalin (Lyrica) 25 mg BID ORAL 12/22/18 18:00 01/21/19 17:59 Sodium Chloride 1,000 ml @ 75 mls/hr [id number] IV 12/22/18 12:00 01/21/19 11:59 12/22/18 12:44 Temazepam (Restoril) 15 mg HSPRN PRN ORAL Insomnia 12/21/18 18:00 12/28/18 17:59 12/22/18 01:26 Allergies: Coded Allergies: LATEX (Verified Allergy, Unknown, 12/20/18) ROS Limited/Unobtainable: No Constitutional: Reports: no symptoms HEENT: Reports: no symptoms Cardiovascular: Reports: no symptoms Respiratory: Reports: no symptoms Gastrointestinal/Abdominal: Reports: no symptoms Genitourinary: Reports: no symptoms Neurologic/Psychiatric: Reports: no symptoms Subjective 53 YO M admitted with multiple myeloma and T11-T12 tumor. S/P posterior fusion T10-L3 , laminectomy and tumor resection on 12/21/18. Cover for Int Chacorta-Dr Neves Objective Last Vital Signs Date Time Temp Pulse Resp B/P (MAP) Pulse Ox O2 Delivery O2 Flow Rate FiO2 12/22/18 16:00 98.7 80 18 118/68 (85) 96 12/22/18 08:00 Room Air 12/21/18 21:00 2.0 Laboratory Tests Test 12/22/18 06:00 White Blood Count 12.7 K/UL (4.8-10.8) H Red Blood Count 2.79 M/UL (4.70-6.10) L Hemoglobin 9.3 G/DL (14.2-18.0) L Hematocrit 26.3 % (42.0-52.0) L Mean Corpuscular Volume 94 FL (80-99) Mean Corpuscular Hemoglobin 33.3 PG (27.0-31.0) H Mean Corpuscular Hemoglobin Concent 35.3 G/DL (32.0-36.0) Red Cell Distribution Width 11.8 % (11.6-14.8) Platelet Count 212 K/UL (150-450) Mean Platelet Volume 6.5 FL (6.5-10.1) Neutrophils (%) (Auto) % (45.0-75.0) Lymphocytes (%) (Auto) % (20.0-45.0) Monocytes (%) (Auto) % (1.0-10.0) Eosinophils (%) (Auto) % (0.0-3.0) Basophils (%) (Auto) % (0.0-2.0) Differential Total Cells Counted 100 Neutrophils % (Manual) 85 % (45-75) H Lymphocytes % (Manual) 5 % (20-45) L Monocytes % (Manual) 9 % (1-10) Eosinophils % (Manual) 1 % (0-3) Basophils % (Manual) 0 % (0-2) Band Neutrophils 0 % (0-8) Platelet Estimate Adequate Platelet Morphology Normal Red Blood Cell Morphology Normal Sodium Level 133 MMOL/L (136-145) L Potassium Level 4.2 MMOL/L (3.5-5.1) Chloride Level 97 MMOL/L (98-107) L Carbon Dioxide Level 27 MMOL/L (21-32) Anion Gap 9 mmol/L (5-15) Blood Urea Nitrogen 16 mg/dL (7-18) Creatinine 0.8 MG/DL (0.55-1.30) Estimat Glomerular Filtration Rate > 60 mL/min (>60) Glucose Level 159 MG/DL (74-106) H Calcium Level 6.8 MG/DL (8.5-10.1) L Phosphorus Level 2.4 MG/DL (2.5-4.9) L Magnesium Level 2.4 MG/DL (1.8-2.4) Total Bilirubin 0.6 MG/DL (0.2-1.0) Aspartate Amino Transf (AST/SGOT) 55 U/L (15-37) H Alanine Aminotransferase (ALT/SGPT) 132 U/L (12-78) H Alkaline Phosphatase 38 U/L (46-116) L Total Protein 5.1 G/DL (6.4-8.2) L Albumin 2.6 G/DL (3.4-5.0) L Globulin 2.5 g/dL Albumin/Globulin Ratio 1.0 (1.0-2.7) Intake and Output 12/21/18 12/22/18 19:00 07:00 Intake Total 2100 ml 1095 ml Output Total 1850 ml 2060 ml Balance 250 ml -965 ml Intake Oral 240 ml IV Total 1600 ml 855 ml Blood Product 250 ml Other 250 ml Output Urine Total 1350 ml 1850 ml Drainage Total 210 ml Estimated Blood Loss 500 ml Objective Objective General: No acute distress, awake and alert HEENT: NCAT, sclera anicteric, PERRL, EOMI. Neck: Supple, no significant jugular venous distention, Lungs: Good inspiratory effort,, no Wheeze or Rales. Heart: Regular rate and rhythm, normal S1/S2, no murmurs. Abdomen: soft, nontender, nondistended. Normoactive bowel sounds. Back: surgical incision intact dressing. Extremities: No Cyanosis , clubbing or edema. Neuro: A&O x 3, Able to move all extremities Skin: warm, no rashes or lesions Psych: Normal mood and affect Assessment/Plan Assessment/Plan Assessment/Plan Assessment/Plan (1) Metastatic multiple myeloma to bone ICD Codes: C90.00 - Multiple myeloma not having achieved remission SNOMED: 437496766 (2) Multiple myeloma ICD Codes: C90.00 - Multiple myeloma not having achieved remission SNOMED: 177756638 (3) Loss of Bowel and bladder function most likely due to cord compression with T11-12, paraparesis S/P T10 to L3 PSF, vert augmentation T10, 11, L1 and L2, Laminectomy/tumor resection T11, T12 and pediclectomy and vertebrectomy R t12 (12/21/2018). 4. Hyponatremia Plan: Follow-up with the spine surgery recommendation Dr. Harshad Grewal. DVT prophylaxis with SCD. CODE STATUS is full code. PT mobility in the morning. Discussed with the family member extensively at the bedside with regard to the care will be provided. S/P T10-L3 POSTERIOR SPINAL FUSION, LAMINECTOMY AND T-11-12 TUMOR RESECTION ON CONTINUE IV Maged Duarte MD Dec 22, 2018 18:07
--- NOTE | 2018-12-22 19:50 | NUR ---
NURSE NOTES: Received report from DYAN Sawyer. Received pt sitting up in bed, AOX4, denies pain, no distress noted. Surgical dressing C/D/I. Pt on RAILWAY SHUNTER Morphine for pain management. RAILWAY SHUNTER checked and verified. Bragg catheter in place with yellow output. Hemovac in place serosanguineous drainage. Pt refused ice pack to surgical site. Safety measures maintained. Bed in lowest position and locked, side rails up x 2, call light within reach.
[2018-12-22 20:00] VITALS: BP 146/91
--- NOTE | 2018-12-22 20:00 | Consultation ---
DATE OF CONSULTATION: 12/22/2018 CONSULTING PHYSICIAN: Kingston Jacobo M.D. REFERRING PHYSICIAN: Harshad Abrams M.D. REASON FOR CONSULTATION: Acute pain consult. Dear Dr. Harshad Abrams, Thank you kindly for consulting me to evaluate and render an opinion as to how to proceed in the management of the patient's acute postoperative lumbar spine pain after multiple-level lumbar spine instrumentation surgery last night. 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 After a short period of remission, he had a relapse of his multiple myeloma and has been followed by an outpatient oncologist. The patient developed acute neurologic deficits including bladder dysfunction and presented to the emergency room at [facility] on December 20, and yesterday underwent multiple-level lumbar spine instrumentation surgery at multiple levels. He complains of significant discomfort postoperatively. You consulted me to help with his pain control. I saw the patient at bedside with yourself, Dr. Abrams. This morning, I discussed the case with hospital pharmacist, Sasha, along with orthopedic nurse, DYAN Haley. I performed a detailed history and physical examination to devise the following analgesic plan. PAST MEDICAL HISTORY: 1. Acute postoperative lumbar spine pain, status post multiple-level lumbar spine instrumentation surgery by Dr. Harshad Abrams in December 2018. 2. Multiple myeloma, on active chemotherapy. 3. Gout. 4. Obesity. ALLERGIES: Latex. MEDICATIONS AT HOME: Valtrex 1000 mg daily, Lyrica 25 mg 3 times a day, chemotherapy agent Revlimid 10 mg orally nightly, Decadron 8 mg 4 times a day, Blythe 10 mg q.4 hours p.r.n., baby aspirin, allopurinol 300 mg daily. SOCIAL HISTORY: The patient is . He lives at home with his 15-year-old child. 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 He denies tobacco or marijuana usage. He does drink 2 vodka drinks each evening with dinner. REVIEW OF SYSTEMS: Per Dr. Neves. FAMILY HISTORY: Noncontributory. PAST SURGICAL HISTORY: Listed in the medical record. PHYSICAL EXAMINATION: VITAL SIGNS: Age 53, height 155 cm, weight 89 kg, body-mass index 37. HEENT: Normocephalic, atraumatic. No Ryan palsy. No Fabricio syndrome. Extraocular muscles intact. CHEST: Clear to auscultation. HEART: Regular rate and rhythm. ABDOMEN: Obese. Positive bowel sounds. BACK: Lumbar spine with Hemovac drain holding suction. Significant pain by incision area and with log-rolling. NEUROLOGIC: Detailed neurologic exam per Dr. Harshad Abrams who is at the bedside. Positive neurologic deficits per Dr. Abrams. Bragg catheter in place. GENITOURINARY: Deferred to Urology. LABORATORY AND DIAGNOSTIC DATA: Laboratory studies on postoperative day #1, today, December 22, 2018, shows white count 13, hematocrit 26, hemoglobin 9.3, platelets 212,000. Sodium 133, potassium 4.2, chloride 97, bicarbonate 27, BUN 16, creatinine 0.8, glucose , calcium 6.8, phosphorus 2.4, magnesium 2.4. Total bilirubin 0.6, AST 55, ALT 132, alkaline phosphatase 38. Total protein 5.1. Albumin 2.6. A 12-lead EKG on December 20, 2018, shows left atrial enlargement, normal sinus rhythm. IMPRESSION: 1. Acute postoperative lumbar spine pain, status post multiple level lumbar spine instrumentation surgery by Dr. Harshad Abrams in December 2018. 2. Multiple myeloma, on active chemotherapy. 3. Gout. 4. Obesity. TREATMENT RECOMMENDATIONS: The patient is an unfortunate gentleman with relapsing multiple myeloma and metastatic spine tumor growth. Over the past week, the patient has been using Percocet tablets 10 mg every 4 hours nearly [id number]. Since the patient does drink a couple of vodkas each evening, I did suggest to remove the Tylenol from the Percocet regimen and use only oxycodone instant-release. I have ordered 2 different doses starting with 10 mg orally every 3 hours p.r.n. for mild pain followed by 15 mg orally every 3 hours p.r.n. for moderate pain. I have also added breakthrough dose of morphine 4 mg intramuscularly every 3 hours p.r.n. for severe breakthrough pain. I have placed the patient on morphine TIMBER APPRAISER with 1 mg demand dose at 10-minute lockout and a 20 mg 4-hour limit. There will be no underlying basal or continuous rate. The patient states that muscle relaxants have not been effective for him. He did trial both Flexeril and Soma, neither of which seemed very helpful. Dr. Abrams discussed with the patient's outpatient oncologist, Dr. Child, who stated that we would put the Revlimid on hold for now. We will continue the Decadron 8 mg 4 times a day per the oncologist's recommendation. The patient will be on sequential compression pneumatic devices for DVT prophylaxis, however, Dr. Grewal did not want any chemical anticoagulation such as subcutaneous heparin or aspirin at this time. The patient has an indwelling lumbar spine drain catheter, which continues to put out significant drainage. The patient's hemoglobin is 9 this morning and we will follow serial hematocrits per Dr. Neves and the Internal Medicine team. Since the patient does drink 2 vodka cocktails each evening, I have placed the patient on a nightly dose of Ativan 0.5 mg for DT prophylaxis. The patient was okay with this dosing and precaution. I have made available Zofran as a rescue antiemetic. I have ordered Benadryl 25 mg q.6 hours for any itching complaints. I will empirically place the patient on Pepcid for GI ulcer prophylaxis and p.r.n. dose of Mylanta is available for any GERD-symptom exacerbation. Allopurinol has been restarted for his chronic gout. The patient states that the Lyrica 25 mg 3 times a day, which he had been dosed with, did not seem to help with pain at all. I would not want to discontinue this medication abruptly, so I have begun a wean of Lyrica, starting with [address] Grewal had provided the patient with a lumbar spine brace, which will be needed when the patient is out of bed with physical therapy training. Physical therapy training should start later today per Dr. Abrams's recommendations. Incentive spirometer has been placed at the bedside to encourage good pulmonary toilet. Kingston Jacobo M.D. DR: JEYSON JOB#: [id number] CC:
--- NOTE | 2018-12-22 20:04 | NUR ---
HAND-OFF: Report given to Pineda Watkins.
[2018-12-22] MEDS ORDERED: REVLIMID 10 MG ORAL SCH (21:00)
[2018-12-22] MEDS ORDERED: LORazepam 0.5mg tab ORAL SCH (21:00)
[2018-12-22 21:20] LABS: APPEARANCE,URINE SLIGHTLY CLOUDY; BILIRUBIN, URINE NEGATIVE (NEGATIVE); COLOR,URINE PALE YELLOW; GLUCOSE, URINE (UA) NEGATIVE (NEGATIVE); KETONES,URINE NEGATIVE (NEGATIVE); LEUKOCYTE ESTERASE ,URINE NEGATIVE (NEGATIVE); NITRITE,URINE NEGATIVE (NEGATIVE); PH,URINE 5 (4.5-8.0); PROTEIN,URINE 2+ (NEGATIVE); UROBILINOGEN,URINE NORMAL MG/DL (0.0-1.0)
[2018-12-23] VITALS: BP 130/81
[2018-12-23] MEDS: Cefepime HCl 1 GM in D5W 55 ML IVPB SCH ×2 (03:47→16:06)
[2018-12-23 04:00] VITALS: BP 131/78
--- NOTE | 2018-12-23 06:00 | NUR ---
NURSE NOTES: Bragg catheter removed per Dr. Rocha order. Pt due to void, urinal at bedside.
--- NOTE | 2018-12-23 06:20 | NUR ---
NURSE NOTES: Dr. Jacobo came and removed hemovac (output 60cc) serosanguineous drainage. Pt tolerated procedure well.
[2018-12-23] MEDS: oxyCODONE 15mg IR tab ORAL PRN ×3 (06:54→21:04)
[2018-12-23] MEDS: PCA shift volume MISC SCH (07:14)
--- NOTE | 2018-12-23 07:31 | NUR ---
HAND-OFF: Report given to DYAN Haley. Pt in stable condition.
--- NOTE | 2018-12-23 07:35 | NUR ---
NURSE NOTES: Patient lying in bed awake. Complain of mild pain on surgical site and will continue to monitor. Skin intact and dry. Surgical dressing and IV dressing intact and dry. Bed lowest position. Call light within reach. Will continue to monitor.
[2018-12-23 07:56] LABS: HEMATOCRIT 26.5 % (42.0-52.0); HEMOGLOBIN 9.4 G/DL (14.2-18.0); MEAN CORPUSCULAR VOLUME 94 FL (80-99); PLATELET COUNT 196 K/UL (150-450); RED CELL DISTRIBUTION WIDTH 11.9 % (11.6-14.8)
[2018-12-23 08:00] VITALS: BP 143/85
[2018-12-23 08:14] LABS: ANION GAP 8 mmol/L (5-15); BLOOD UREA NITROGEN 17 mg/dL (7-18); CALCIUM 7.9 MG/DL (8.5-10.1); CARBON DIOXIDE 29 MMOL/L (21-32); CHLORIDE 101 MMOL/L (98-107); CREATININE 0.8 MG/DL (0.55-1.30); POTASSIUM 4.3 MMOL/L (3.5-5.1); SODIUM 138 MMOL/L (136-145)
--- NOTE | 2018-12-23 09:06 | Urology Progress Note ---
Assessment/Plan Assessment/Plan 1. Lower urinary tract symptoms and incontinence. 2. Probable neurogenic bladder. 3. BPH. monitor clinically balderas removed monitor for voiding check PVR and reinsert balderas PRN reassess voiding sx's after balderas removed Subjective Allergies: Coded Allergies: LATEX (Verified Allergy, Unknown, 12/20/18) Subjective all noted, feels fair, balderas removed 6 am, has not voided yet Objective Last 24 Hour Vital Signs Date Time Temp Pulse Resp B/P (MAP) Pulse Ox O2 Delivery O2 Flow Rate FiO2 12/23/18 08:00 20 12/23/18 08:00 97.9 79 20 143/85 (104) 96 12/23/18 04:00 98.2 86 18 131/78 (95) 97 12/23/18 04:00 17 12/23/18 00:00 17 12/23/18 00:00 98.2 83 17 130/81 (97) 98 12/22/18 21:00 Room Air 12/22/18 20:00 18 12/22/18 20:00 97.8 94 18 146/91 (109) 98 12/22/18 16:00 98.7 80 18 118/68 (85) 96 12/22/18 16:00 18 12/22/18 12:00 97.7 68 123/77 (92) 98 12/22/18 12:00 18 12/22/18 10:17 68 20 98 Intake and Output 12/22/18 12/23/18 19:00 07:00 Intake Total 830 ml 970 ml Output Total 3880 ml Balance 830 ml -2910 ml Intake Oral 240 ml IV Total 230 ml 730 ml Other 600 ml Output Urine Total 3750 ml Drainage Total 130 ml Current Medications Medications (Trade) Dose Ordered Sig/Stephane Route PRN Reason Start Time Stop Time Status Last Admin Dose Admin Acetaminophen (Tylenol) 650 mg Q4H PRN ORAL headache or temp>101 12/21/18 18:00 01/20/19 17:59 Al Hydroxide/Mg Hydroxide (Mylanta II) 30 ml Q6H PRN ORAL dyspepsia 12/21/18 00:00 01/20/19 00:00 Allopurinol (Allopurinol) 300 mg DAILY ORAL 12/21/18 09:00 01/20/19 08:59 12/22/18 08:14 Cefepime HCl 1 gm/ Dextrose 55 ml @ 110 mls/hr Q12HR@0400,1600 IVPB 12/22/18 16:00 12/29/18 15:59 12/23/18 03:47 Dexamethasone (Decadron) 8 mg QID ORAL 12/21/18 09:00 01/20/19 08:59 12/22/18 20:59 Dextrose (Dextrose 50%) 25 ml Q30M PRN IV Hypoglycemia 12/21/18 00:00 01/20/19 00:00 Dextrose (Dextrose 50%) 50 ml Q30M PRN IV Hypoglycemia 12/21/18 00:00 01/20/19 00:00 Diphenhydramine HCl (Benadryl) 25 mg Q6H PRN ORAL Itching 12/22/18 09:00 01/21/19 08:59 Docusate Sodium (Colace) 100 mg TWICE A DAY ORAL 12/21/18 18:00 01/20/19 17:59 12/22/18 18:37 Famotidine (Pepcid) 20 mg BID ORAL 12/22/18 09:00 01/21/19 08:59 12/22/18 18:38 Lorazepam (Ativan) 1 mg BEDTIME ORAL 12/23/18 21:00 12/30/18 20:59 Magnesium Hydroxide (Mom) 30 ml QIDPRN PRN ORAL Constipation 12/21/18 18:00 01/20/19 17:59 Miscellaneous Medication (PRODUCTION MATERIAL HANDLER Rate Change) 1 ea PRN MISC rate change 12/21/18 13:30 12/23/18 13:29 Miscellaneous Medication (PRODUCTION MATERIAL HANDLER shift volume) 1 ea Q12HR@0700,1900 MISC 12/21/18 19:00 12/23/18 18:59 12/23/18 07:14 Morphine Sulfate 30 ml @ 0 mls/hr PRODUCTION MATERIAL HANDLER Protocol PRN IV For Pain 12/21/18 13:30 12/23/18 13:29 12/22/18 08:19 Morphine Sulfate (Morphine Sulfate) 4 mg Q3H PRN IM Severe Pain (Pain Scale 7-10) 12/22/18 10:30 12/29/18 10:29 Naloxone HCl (Narcan) 0.1 mg PRN IV If RR<10min OR SBP<90 mmHg 12/21/18 13:30 12/23/18 13:29 Ondansetron HCl (Zofran) 4 mg Q4H PRN IVP Nausea & Vomiting 12/22/18 09:00 01/21/19 08:59 Oxycodone HCl (Roxicodone) 10 mg Q4H PRN ORAL Mild Pain (Pain Scale 1-3) 12/22/18 09:00 12/29/18 08:59 Oxycodone HCl (Roxicodone) 15 mg Q3H PRN ORAL Moderate Breakthru Pain (5-7) 12/22/18 09:00 12/29/18 08:59 12/23/18 06:54 Patient Own Medication (Patient's Own Med) 1 ea QHS ORAL 12/22/18 21:00 01/21/19 20:59 UNV Polyethylene Glycol (Miralax) 17 gm HSPRN PRN ORAL Constipation 12/21/18 00:00 01/20/19 00:00 Pregabalin (Lyrica) 25 mg BID ORAL 12/22/18 18:00 01/21/19 17:59 12/22/18 18:38 Temazepam (Restoril) 15 mg HSPRN PRN ORAL Insomnia 12/21/18 18:00 12/28/18 17:59 12/22/18 22:00 Laboratory Tests 12/22/18 20:50: Urine Color Pale yellow, Urine Appearance Slightly cloudy, Urine pH 5, Urine Specific [place] 1.015, Urine Protein 2+H, Urine Glucose (UA) Negative, Urine Ketones Negative, Urine Blood 4+H, Urine Nitrite Negative, Urine Bilirubin Negative, Urine Urobilinogen Normal, Urine Leukocyte Esterase Negative, Urine RBC 10-15H, Urine WBC 0, Urine Squamous Epithelial Cells Occasional, Urine Bacteria Few, Urine Mucus ModerateH 12/23/18 06:04: White Blood Count 12.0H, Red Blood Count 2.80L, Hemoglobin 9.4L, Hematocrit 26.5L, Mean Corpuscular Volume 94, Mean Corpuscular Hemoglobin 33.6H, Mean Corpuscular Hemoglobin Concent 35.6, Red Cell Distribution Width 11.9, Platelet Count 196, Mean Platelet Volume 6.4L, Neutrophils (%) (Auto) , Lymphocytes (%) ( Auto) , Monocytes (%) (Auto) , Eosinophils (%) (Auto) , Basophils (%) (Auto) , Differential Total Cells Counted 100, Neutrophils % (Manual) 90H, Lymphocytes % (Manual) 3L, Monocytes % (Manual) 7, Eosinophils % (Manual) 0, Basophils % ( Manual) 0, Band Neutrophils 0, Platelet Estimate Adequate, Platelet Morphology Normal, Red Blood Cell Morphology Normal, Sodium Level 138, Potassium Level 4.3 , Chloride Level 101, Carbon Dioxide Level 29, Anion Gap 8, Blood Urea Nitrogen 17, Creatinine 0.8, Estimat Glomerular Filtration Rate > 60, Glucose Level 125H , Calcium Level 7.9L Height (Feet): 5 Height (Inches): 0.90 Weight (Pounds): 197 Objective exam stable Lb Rocha MD Dec 23, 2018 09:06
[2018-12-23] MEDS: Lyrica 25mg cap ORAL SCH ×2 (09:08→17:24)
[2018-12-23] MEDS: Docusate 100mg cap ORAL SCH ×2 (09:08→17:24)
--- NOTE | 2018-12-23 09:26 | Orthopedic Spine Progress Note ---
Ortho Spine - Progress Note Subjective Symptoms: c/o post-op back pain, improved - as compared to pre-op Objective Vital Signs: Last 24 Hour Vital Signs Date Time Temp Pulse Resp B/P (MAP) Pulse Ox O2 Delivery O2 Flow Rate FiO2 12/23/18 08:00 20 12/23/18 08:00 97.9 79 20 143/85 (104) 96 12/23/18 04:00 98.2 86 18 131/78 (95) 97 12/23/18 04:00 17 12/23/18 00:00 17 12/23/18 00:00 98.2 83 17 130/81 (97) 98 12/22/18 21:00 Room Air 12/22/18 20:00 18 12/22/18 20:00 97.8 94 18 146/91 (109) 98 12/22/18 16:00 98.7 80 18 118/68 (85) 96 12/22/18 16:00 18 12/22/18 12:00 97.7 68 123/77 (92) 98 12/22/18 12:00 18 12/22/18 10:17 68 20 98 I&O: Intake and Output 12/22/18 12/23/18 19:00 07:00 Intake Total 830 ml 970 ml Output Total 3880 ml Balance 830 ml -2910 ml Intake Oral 240 ml IV Total 230 ml 730 ml Other 600 ml Output Urine Total 3750 ml Drainage Total 130 ml Wound: clean, intact Drains: none Neuro Status: abnormal - GS Bl 5, TA R 5, L 4+, Quads Bl 4+ Assessment Procedure Performed: T10 to L3 PSF, vert augmentation T10, 11, L1 and L2, Laminectomy/tumor resection T11, T12 and pediclectomy and vertebrectomy R t12 Plan Plan: PT, pain management, d/c drain - done by alicia in am Additional Comments: aru consult Harshad Abrams MD Dec 23, 2018 09:26
[2018-12-23 12:00] VITALS: BP 153/92
--- NOTE | 2018-12-23 12:00 | NUR ---
NURSE NOTES: Received report from DYAN Haley. Received pt in bed, AOX4, no distress noted. Surgical dressing C/D/I. Pt refused ice pack to surgical site. Safety measures maintained. Bed in lowest position and locked, side rails up x 2, call light within reach. Will cont to monitor.
--- NOTE | 2018-12-23 12:45 | NUR ---
NURSE NOTES: Spoke to regarding AVIATION SUPPORT EQUIPMENT REPAIRER renew and new order - 1. D/C AVIATION SUPPORT EQUIPMENT REPAIRER. Order read back and carried out. Will continue to monitor.
--- NOTE | 2018-12-23 14:17 | NUR ---
CASE MANAGEMENT: REVIEW SI: ACUTE SPINAL CORD COMPRESSION . MULTIPLE MYELOMA . PARAPARESIS LAMINECTOMY w/DECOMPRESSION & INTERBODY FUSION/TUMOR RESECTION 12/21 T 97.6 HR 102 RR 20 BP 153/92 SAT 96% ROOM AIR WBC 12.0 H/H 9.4/26.5 CALCIUM 7.9 IS: LYRICA PO BID CEFEPIME IV Q12HR EXCHANGE TROUBLE SHOOTER MORPHINE MED/SURG STATUS DCP: PATIENT IS FROM HOME
--- NOTE | 2018-12-23 14:41 | NUR ---
NURSE NOTES: Dr Rocha informed with the PVR of 994ml. patient walked to the bathroom via walker and void in the urinal to obtain an accurate measurement. New order obtained. explained to patient and understand the indication. Patient has excellent appetite and visitors @ bedside. will cont to monitor.
--- NOTE | 2018-12-23 15:38 | NUR ---
NURSE NOTES: 16 fr f/c inserted and urine draining well. patient is calm and no s/sx of discomfort. will cont to monitor.
[2018-12-23 16:00] VITALS: BP 135/83
--- NOTE | 2018-12-23 16:06 | Internal Med Progress Note ---
Subjective Date of Service: Dec 23, 2018 Physician Name Maged Shaver Attending Physician Uriah Neves MD Current Medications Medications (Trade) Dose Ordered Sig/Stephane Route PRN Reason Start Time Stop Time Status Last Admin Dose Admin Acetaminophen (Tylenol) 650 mg Q4H PRN ORAL headache or temp>101 12/21/18 18:00 01/20/19 17:59 Al Hydroxide/Mg Hydroxide (Mylanta II) 30 ml Q6H PRN ORAL dyspepsia 12/21/18 00:00 01/20/19 00:00 Allopurinol (Allopurinol) 300 mg DAILY ORAL 12/21/18 09:00 01/20/19 08:59 12/23/18 09:08 Cefepime HCl 1 gm/ Dextrose 55 ml @ 110 mls/hr Q12HR@0400,1600 IVPB 12/22/18 16:00 12/29/18 15:59 12/23/18 03:47 Dexamethasone (Decadron) 8 mg QID ORAL 12/21/18 09:00 01/20/19 08:59 12/23/18 13:27 Dextrose (Dextrose 50%) 25 ml Q30M PRN IV Hypoglycemia 12/21/18 00:00 01/20/19 00:00 Dextrose (Dextrose 50%) 50 ml Q30M PRN IV Hypoglycemia 12/21/18 00:00 01/20/19 00:00 Diphenhydramine HCl (Benadryl) 25 mg Q6H PRN ORAL Itching 12/22/18 09:00 01/21/19 08:59 Docusate Sodium (Colace) 100 mg TWICE A DAY ORAL 12/21/18 18:00 01/20/19 17:59 12/23/18 09:08 Famotidine (Pepcid) 20 mg BID ORAL 12/22/18 09:00 01/21/19 08:59 12/23/18 09:08 Lorazepam (Ativan) 1 mg BEDTIME ORAL 12/23/18 21:00 12/30/18 20:59 Magnesium Hydroxide (Mom) 30 ml QIDPRN PRN ORAL Constipation 12/21/18 18:00 01/20/19 17:59 Miscellaneous Medication (BUSINESS ANALYST SALES OPERATIONS shift volume) 1 ea Q12HR@0700,1900 MISC 12/21/18 19:00 12/23/18 18:59 12/23/18 07:14 Morphine Sulfate (Morphine Sulfate) 4 mg Q3H PRN IM Severe Pain (Pain Scale 7-10) 12/22/18 10:30 12/29/18 10:29 Ondansetron HCl (Zofran) 4 mg Q4H PRN IVP Nausea & Vomiting 12/22/18 09:00 01/21/19 08:59 Oxycodone HCl (Roxicodone) 10 mg Q4H PRN ORAL Mild Pain (Pain Scale 1-3) 12/22/18 09:00 12/29/18 08:59 Oxycodone HCl (Roxicodone) 15 mg Q3H PRN ORAL Moderate Breakthru Pain (5-7) 12/22/18 09:00 12/29/18 08:59 12/23/18 14:33 Patient Own Medication (Patient's Own Med) 1 ea QHS ORAL 12/22/18 21:00 01/21/19 20:59 UNV Polyethylene Glycol (Miralax) 17 gm HSPRN PRN ORAL Constipation 12/21/18 00:00 01/20/19 00:00 Pregabalin (Lyrica) 25 mg BID ORAL 12/22/18 18:00 01/21/19 17:59 12/23/18 09:08 Temazepam (Restoril) 15 mg HSPRN PRN ORAL Insomnia 12/21/18 18:00 12/28/18 17:59 12/22/18 22:00 Allergies: Coded Allergies: LATEX (Verified Allergy, Unknown, 12/20/18) ROS Limited/Unobtainable: No Constitutional: Reports: no symptoms HEENT: Reports: no symptoms Cardiovascular: Reports: no symptoms Respiratory: Reports: no symptoms Gastrointestinal/Abdominal: Reports: no symptoms Genitourinary: Reports: no symptoms Neurologic/Psychiatric: Reports: no symptoms Subjective 53 YO M admitted with multiple myeloma and T11-T12 tumor. S/P posterior fusion T10-L3 , laminectomy and tumor resection on 12/21/18. Cover for Int [facility]ac[facility]-Dr Neves Objective Last Vital Signs Date Time Temp Pulse Resp B/P (MAP) Pulse Ox O2 Delivery O2 Flow Rate FiO2 12/23/18 12:00 20 12/23/18 12:00 97.6 102 153/92 (112) 96 12/23/18 09:00 Room Air 12/21/18 21:00 2.0 Laboratory Tests Test 12/22/18 20:50 12/23/18 06:04 Urine Color Pale yellow Urine Appearance Slightly cloudy Urine pH 5 (4.5-8.0) Urine Specific [place] 1.015 (1.005-1.035) Urine Protein 2+ (NEGATIVE) H Urine Glucose (UA) Negative (NEGATIVE) Urine Ketones Negative (NEGATIVE) Urine Blood 4+ (NEGATIVE) H Urine Nitrite Negative (NEGATIVE) Urine Bilirubin Negative (NEGATIVE) Urine Urobilinogen Normal MG/DL (0.0-1.0) Urine Leukocyte Esterase Negative (NEGATIVE) Urine RBC 10-15 /HPF (0 - 0) H Urine WBC 0 /HPF (0 - 0) Urine Squamous Epithelial Cells Occasional /LPF Urine Bacteria Few /HPF (NONE) Urine Mucus Moderate /LPF (NONE/OCC) H White Blood Count 12.0 K/UL (4.8-10.8) H Red Blood Count 2.80 M/UL (4.70-6.10) L Hemoglobin 9.4 G/DL (14.2-18.0) L Hematocrit 26.5 % (42.0-52.0) L Mean Corpuscular Volume 94 FL (80-99) Mean Corpuscular Hemoglobin 33.6 PG (27.0-31.0) H Mean Corpuscular Hemoglobin Concent 35.6 G/DL (32.0-36.0) Red Cell Distribution Width 11.9 % (11.6-14.8) Platelet Count 196 K/UL (150-450) Mean Platelet Volume 6.4 FL (6.5-10.1) L Neutrophils (%) (Auto) % (45.0-75.0) Lymphocytes (%) (Auto) % (20.0-45.0) Monocytes (%) (Auto) % (1.0-10.0) Eosinophils (%) (Auto) % (0.0-3.0) Basophils (%) (Auto) % (0.0-2.0) Differential Total Cells Counted 100 Neutrophils % (Manual) 90 % (45-75) H Lymphocytes % (Manual) 3 % (20-45) L Monocytes % (Manual) 7 % (1-10) Eosinophils % (Manual) 0 % (0-3) Basophils % (Manual) 0 % (0-2) Band Neutrophils 0 % (0-8) Platelet Estimate Adequate Platelet Morphology Normal Red Blood Cell Morphology Normal Sodium Level 138 MMOL/L (136-145) Potassium Level 4.3 MMOL/L (3.5-5.1) Chloride Level 101 MMOL/L (98-107) Carbon Dioxide Level 29 MMOL/L (21-32) Anion Gap 8 mmol/L (5-15) Blood Urea Nitrogen 17 mg/dL (7-18) Creatinine 0.8 MG/DL (0.55-1.30) Estimat Glomerular Filtration Rate > 60 mL/min (>60) Glucose Level 125 MG/DL (74-106) H Calcium Level 7.9 MG/DL (8.5-10.1) L Intake and Output 12/22/18 12/23/18 18:59 06:59 Intake Total 700 ml 1100 ml Output Total 3880 ml Balance 700 ml -2780 ml Intake Oral 240 ml IV Total 100 ml 860 ml Other 600 ml Output Urine Total 3750 ml Drainage Total 130 ml Objective Objective General: No acute distress, awake and alert HEENT: NCAT, sclera anicteric, PERRL, EOMI. Neck: Supple, no significant jugular venous distention, Lungs: Good inspiratory effort,, no Wheeze or Rales. Heart: Regular rate and rhythm, normal S1/S2, no murmurs. Abdomen: soft, nontender, nondistended. Normoactive bowel sounds. Back: surgical incision intact dressing. Extremities: No Cyanosis , clubbing or edema. Neuro: A&O x 3, Able to move all extremities Skin: warm, no rashes or lesions Psych: Normal mood and affect Assessment/Plan Assessment/Plan Assessment/Plan Assessment/Plan (1) Metastatic multiple myeloma to bone ICD Codes: C90.00 - Multiple myeloma not having achieved remission SNOMED: 777635832 (2) Multiple myeloma ICD Codes: C90.00 - Multiple myeloma not having achieved remission SNOMED: 264044587 (3) Loss of Bowel and bladder function most likely due to cord compression with T11-12, paraparesis S/P T10 to L3 PSF, vert augmentation T10, 11, L1 and L2, Laminectomy/tumor resection T11, T12 and pediclectomy and vertebrectomy R t12 (12/21/2018). 4. Hyponatremia Plan: Follow-up with the spine surgery recommendation Dr. Harshad Grewal. DVT prophylaxis with SCD. CODE STATUS is full code. PT mobility in the morning. Discussed with the family member extensively at the bedside with regard to the care will be provided. S/P T10-L3 POSTERIOR SPINAL FUSION, LAMINECTOMY AND T-11-12 TUMOR RESECTION ON CONTINUE IV Maged Duarte MD Dec 23, 2018 16:06
[2018-12-23 17:19] LABS: ANION GAP 6 mmol/L (5-15); BLOOD UREA NITROGEN 23 mg/dL (7-18); CALCIUM 8.8 MG/DL (8.5-10.1); CARBON DIOXIDE 28 MMOL/L (21-32); CHLORIDE 99 MMOL/L (98-107); CREATININE 0.7 MG/DL (0.55-1.30); POTASSIUM 4.4 MMOL/L (3.5-5.1); SODIUM 133 MMOL/L (136-145)
--- NOTE | 2018-12-23 18:06 | NUR ---
NURSE NOTES: emptied balderas cath contained 1000cc output with yellow color urine, draining well. no c/o discomfort or distress noted. utilized IS as directed and compliant. Son @ bedside. will cont to monitor.
--- NOTE | 2018-12-23 18:57 | NUR ---
HAND-OFF: Report given to
--- NOTE | 2018-12-23 19:15 | Progress Note ---
DATE: 12/23/2018 ACUTE PAIN MANAGEMENT PHYSICIAN PROGRESS NOTE: MEDICATIONS: Medication administration record reviewed. Medications include IV fluids, Colace, at bedtime Ativan, Lyrica, Pepcid, allopurinol, antibiotics, morphine UNIT RECEPTIONIST, Decadron. PRN medications include Mylanta, MiraLAX, Narcan, Restoril, Tylenol, milk of magnesia, Benadryl, oxycodone, Zofran, morphine. LABORATORY STUDIES: From this morning are pending. Yesterday's hematocrit was 26, hemoglobin was 9.3. Vital signs are within normal limits. Afebrile. Pulse 86, respirations 18, blood pressure 131/78, oxygen saturation 97% on room air. I saw the patient at the bedside. I discussed the case with the surgeon, Dr. Abarms. The patient's sister visited yesterday and brought the lumbar spine rigid brace in from home. The sister also took the prescription for oxycodone instant release, which I provided for outpatient usage. The patient did ambulate with physical therapy two times yesterday. I will defer detailed neurologic exam to Dr. Abrams. Dr. Rocha evaluated the patient last night for his urinary incontinence and possible neurogenic bladder. Dr. Rocha recommended to a trial discontinuing the Bragg catheter this morning. The drainage from the indwelling lumbar spine drain catheter decreased considerably overnight to less than 60 mL over the past 12 hours shift. The patient has been compliant using his incentive spirometer. The patient did state that he has a ketogenic diet prep, and so I asked for a nutrition dietary consultation when available. We also will supply the patient with menus to better select his meals. Sequential compression pneumatic devices remain in place for DVT prophylaxis. The patient has been using his morphine UNIT RECEPTIONIST with good efficacy. I did encourage him a trial of oxycodone instant release tablets, to try to wean off of the morphine UNIT RECEPTIONIST. Since the patient is tolerating oral intake, I will the IV fluids. If the patient is able to tolerate his pain just on the intramuscular morphine and p.r.n. oxycodone pills, I would recommend to discontinue the UNIT RECEPTIONIST later today. The patient did tolerate his at bedtime Ativan and also did request p.r.n. Restoril, which Dr. Abrams ordered. The patient shows no signs of oversedation. The patient is wide awake and had good questions. Per Dr. Grewal's recommendation, the case briefer will discuss with the patient and his insurance carrier for rehabilitation placement once the patient is medically stable for transfer. The patient was turned to the left lateral decubitus position. I examined the lumbar spine dressing, which is dry and intact. Removal of the bandage showed a lengthy incision line clean and dry with no evidence for erythema or exudate. The DuraBond sealant appeared intact. I cut the suture holding in the indwelling lumbar spine drain catheter. Then, at end-expiration, with the Hemovac drain taken off of suction, I personally removed the indwelling lumbar spine drain catheter. The tip was intact. ChloraPrep swab was applied generously to the drain hole site and to the incision line. Finally, sterile 4 x 4 gauze was applied over the drain hole site and the incision area, followed by adhesive 6x6 island border gauze dressings x3. There were no complications. [place] Jacobo M.D. DR: JEYSON JOB#: [id number] CC:
--- NOTE | 2018-12-23 19:30 | NUR ---
NURSE NOTES: Pt requesting to have balderas catheter remove. Pt states "I want to see if I can void by myself tonight". Informed pt that I will notify Dr. Rocha regarding his request.
--- NOTE | 2018-12-23 19:30 | NUR ---
NURSE NOTES: Received pt sitting up in bed, AOX4, pain level 4/10, refused pain medication at this time. Encouraged pt to call if need pain meds., no distress noted. Surgical dressing C/D/I. Pt refused ice pack to surgical site. IV L FA #22 patent and intact. Bragg catheter inplace draining yellow output. Safety measures maintained. Bed in lowest position and locked, side rails up x 2, call light within reach. Will continue to monitor.
[2018-12-23 20:00] VITALS: BP 136/84
--- NOTE | 2018-12-23 20:00 | NUR ---
NURSE NOTES: Called and spoke with Dr. Rocha regarding pt's request to have balderas catheter remove. Per Dr. Rocha, do not remove balderas. Pt aware and verbalized understanding.
[2018-12-23] MEDS: Tamsulosin 0.4mg cap ORAL SCH (21:04)
[2018-12-23] MEDS: LORazepam 1mg tab ORAL SCH (21:54)
[2018-12-24] VITALS: BP 135/84
[2018-12-24] MEDS: Cefepime HCl 1 GM in D5W 55 ML IVPB SCH ×2 (04:02→16:29)
[2018-12-24 05:00] VITALS: BP 147/80
[2018-12-24 05:20] LABS: HEMATOCRIT 26.2 % (42.0-52.0); HEMOGLOBIN 9.3 G/DL (14.2-18.0); MEAN CORPUSCULAR VOLUME 94 FL (80-99); PLATELET COUNT 202 K/UL (150-450); RED BLOOD COUNT 2.78 M/UL (4.70-6.10); RED CELL DISTRIBUTION WIDTH 11.5 % (11.6-14.8); WHITE BLOOD COUNT 10.6 K/UL (4.8-10.8)
--- NOTE | 2018-12-24 07:22 | NUR ---
HAND-OFF: Report given to DYAN Greene. Pt in stable condition.
--- NOTE | 2018-12-24 07:30 | NUR ---
NURSE NOTES: Patient is in bed awake and able to verbalize needs. Patient stable with no s/s acute distress. Denies pain or SOB at this time. Patient encouraged to use call light for assistance, verbalized understanding. Plan of care discussed with patient. Patient is in good spirits with call light within reach. WIll continue to monitor.
--- NOTE | 2018-12-24 07:41 | Urology Progress Note ---
Assessment/Plan Assessment/Plan 1. Lower urinary tract symptoms and incontinence hx. 2. Probable neurogenic bladder. 3. BPH. 4. Urinary retention. monitor clinically failed voiding trial balderas placed back 12/23 flomax added repeat voiding trial tomorrow morning ambulate minimize narcotics reassess voiding sx's after balderas removed Subjective Allergies: Coded Allergies: LATEX (Verified Allergy, Unknown, 12/20/18) Subjective all noted, feels fair, failed voiding trial yest, balderas reinserted, >600 cc by report Objective Last 24 Hour Vital Signs Date Time Temp Pulse Resp B/P (MAP) Pulse Ox O2 Delivery O2 Flow Rate FiO2 12/24/18 05:00 97.2 71 18 147/80 (102) 98 12/24/18 00:00 98.0 70 18 135/84 (101) 99 12/23/18 21:00 Room Air 12/23/18 20:00 99.1 83 17 136/84 (101) 100 12/23/18 17:54 98.2 12/23/18 16:00 98.2 97 21 135/83 (100) 94 12/23/18 12:00 20 12/23/18 12:00 97.6 102 20 153/92 (112) 96 12/23/18 09:00 Room Air 12/23/18 08:00 20 12/23/18 08:00 97.9 79 20 143/85 (104) 96 Intake and Output 12/23/18 12/24/18 19:00 07:00 Intake Total 800 ml 1955 ml Output Total 1120 ml 2600 ml Balance -320 ml -645 ml Intake Oral 800 ml 1900 ml IV Total 55 ml Output Urine Total 1120 ml 2600 ml # Voids 2 Microbiology Date/Time Source Procedure Growth Status 12/22/18 19:52 Blood Blood Culture - Preliminary NO GROWTH AFTER 24 HOURS Resulted Current Medications Medications (Trade) Dose Ordered Sig/Stephane Route PRN Reason Start Time Stop Time Status Last Admin Dose Admin Acetaminophen (Tylenol) 650 mg Q4H PRN ORAL headache or temp>101 12/21/18 18:00 01/20/19 17:59 Al Hydroxide/Mg Hydroxide (Mylanta II) 30 ml Q6H PRN ORAL dyspepsia 12/21/18 00:00 01/20/19 00:00 Allopurinol (Allopurinol) 300 mg DAILY ORAL 12/21/18 09:00 01/20/19 08:59 12/23/18 09:08 Cefepime HCl 1 gm/ Dextrose 55 ml @ 110 mls/hr Q12HR@0400,1600 IVPB 12/22/18 16:00 12/29/18 15:59 12/24/18 04:02 Dexamethasone (Decadron) 8 mg QID ORAL 12/21/18 09:00 01/20/19 08:59 12/23/18 21:03 Dextrose (Dextrose 50%) 25 ml Q30M PRN IV Hypoglycemia 12/21/18 00:00 01/20/19 00:00 Dextrose (Dextrose 50%) 50 ml Q30M PRN IV Hypoglycemia 12/21/18 00:00 01/20/19 00:00 Diphenhydramine HCl (Benadryl) 25 mg Q6H PRN ORAL Itching 12/22/18 09:00 01/21/19 08:59 Docusate Sodium (Colace) 100 mg TWICE A DAY ORAL 12/21/18 18:00 01/20/19 17:59 12/23/18 17:24 Famotidine (Pepcid) 20 mg BID ORAL 12/22/18 09:00 01/21/19 08:59 12/23/18 17:24 Lorazepam (Ativan) 1 mg BEDTIME ORAL 12/23/18 21:00 12/30/18 20:59 12/23/18 21:54 Magnesium Hydroxide (Mom) 30 ml QIDPRN PRN ORAL Constipation 12/21/18 18:00 01/20/19 17:59 Morphine Sulfate (Morphine Sulfate) 4 mg Q3H PRN IM Severe Pain (Pain Scale 7-10) 12/22/18 10:30 12/29/18 10:29 12/23/18 23:02 Ondansetron HCl (Zofran) 4 mg Q4H PRN IVP Nausea & Vomiting 12/22/18 09:00 01/21/19 08:59 Oxycodone HCl (Roxicodone) 10 mg Q4H PRN ORAL Mild Pain (Pain Scale 1-3) 12/22/18 09:00 12/29/18 08:59 Oxycodone HCl (Roxicodone) 15 mg Q3H PRN ORAL Moderate Breakthru Pain (5-7) 12/22/18 09:00 12/29/18 08:59 12/23/18 21:04 Patient Own Medication (Patient's Own Med) 1 ea QHS ORAL 12/22/18 21:00 01/21/19 20:59 UNV Polyethylene Glycol (Miralax) 17 gm HSPRN PRN ORAL Constipation 12/21/18 00:00 01/20/19 00:00 Pregabalin (Lyrica) 25 mg BID ORAL 12/22/18 18:00 01/21/19 17:59 12/23/18 17:24 Tamsulosin HCl (Flomax) 0.4 mg BEDTIME ORAL 12/23/18 21:00 01/22/19 20:59 12/23/18 21:04 Temazepam (Restoril) 15 mg HSPRN PRN ORAL Insomnia 12/21/18 18:00 12/28/18 17:59 12/23/18 23:51 Laboratory Tests 12/23/18 16:48: Sodium Level 133L, Potassium Level 4.4, Chloride Level 99, Carbon Dioxide Level 28, Anion Gap 6, Blood Urea Nitrogen 23H, Creatinine 0.7, Estimat Glomerular Filtration Rate > 60, Glucose Level 133H, Calcium Level 8.8 12/24/18 04:45: White Blood Count 10.6, Red Blood Count 2.78L, Hemoglobin 9.3L, Hematocrit 26.2L , Mean Corpuscular Volume 94, Mean Corpuscular Hemoglobin 33.3H, Mean Corpuscular Hemoglobin Concent 35.3, Red Cell Distribution Width 11.5L, Platelet Count 202, Mean Platelet Volume 6.6, Neutrophils (%) (Auto) , Lymphocytes (%) (Auto) , Monocytes (%) (Auto) , Eosinophils (%) (Auto) , Basophils (%) (Auto) Height (Feet): 5 Height (Inches): 0.90 Weight (Pounds): 197 Objective exam stable balderas indwelling, grossly yellow urine Lb Rocha MD Dec 24, 2018 07:41
--- NOTE | 2018-12-24 07:48 | NUR ---
CASE MANAGEMENT:REVIEW 12/24/18 SI: POD #3 MULTIPLE MYELOMA W/MET TO VERTEBRAE &SPINAL COMPRESSION 97.2 71 18 147/80 98% ON RA H/H-9.3/26.2 IS: IV CEFEPIME Q12 ATIVAN PO QHS FLOMAX PO QHS LYRICA PO BID DECADRON PO QID MORPHINE IM Q3HRS PRN : MED/SURG STATUS 3 EAST DCP: PATIENT IS FROM HOME BUT WILL NEED ACUTE REHAB UPON DISCHARGE
[2018-12-24 08:00] VITALS: BP 127/76
--- NOTE | 2018-12-24 08:10 | NUR ---
INSURANCE FAXED ALL CLINICALS AND REVIEWS TO MARGAR[facility]TE[facility] F: [phone] #[id number]
--- NOTE | 2018-12-24 08:11 | NUR ---
DISCHARGE PLANNING PATIENT HAS BEEN REFERRED TO [facility] AWAIT ACCEPTANCE
--- NOTE | 2018-12-24 08:50 | Infectious Diseases Prog Note ---
Assessment/Plan Assessment/Plan Abx: Ancef 12/21- IV Vancomycin x1 12/21 Assessment: Probable Sepsis vs post-op- but patient immunocompromised- r/o source of infection (specially UTI given neurogenic bladder) UA (-) Blood Cx 12/22/18 - NGTD CXR: no acute disease Low grade fever - Resolved Leukocytosis- Resolved -CXR: no acute disease Multiple myeloma previously on remission and recently found recurrence w/ multiple metastases to thoracic and lumbar spine currently on chemotherapy( started on 12/13) and decadron -12/21 SP T10-12, L1-L3 posterior spinal fusion, Laminectomy and resection of tumor T11 and T12 on the right side and T12 pediclectomy and vertebrectomy on 12/21 -MRI Lumbar spine: : Extensive T12 lesion, also described on separate thoracic spine MRI report, resulting in compression of the distal cord, conus medullaris, and proximal cauda equina as well as a T12 pathologic compression fracture. Other lesions, presumably disseminated multiple myeloma given stated clinical history, within T11, L1, L2, the sacrum, and bilateral iliac bones. No evidence of neural compromise or pathologic fracture related to such. Distended bladder -MRI Thoracic spine: Extensive tumor involving the T12 vertebral body, with invasion of the spinal canal, evidence of distal cord/conus medullaris/ proximal cauda equina compression, as well as a pathologic T12 compression fracture. Evidence of a slight degree of myelomalacia as a result. Multiple other deposits of tumor as detailed on a level by level basis above. Note that there is minimal spinal canal invasion by the T10-11 lesion. Findings most likely represent myelomatous deposits, given stated clinical history of multiple myeloma. BPH neurogenic bladder Plan: -Continue Cefepime #2 pending cultures -f/u cx -Monitor CBC/CMP, temperatures -u/a w/ reflex, Bcx x2 -wound care per surgical team -aspiration precautions Will continue to follow along with you. Subjective Allergies: Coded Allergies: LATEX (Verified Allergy, Unknown, 12/20/18) Subjective Afebrile Leukocytosis resolved Objective Vital Signs Last 24 Hour Vital Signs Date Time Temp Pulse Resp B/P (MAP) Pulse Ox O2 Delivery O2 Flow Rate FiO2 12/24/18 05:00 97.2 71 18 147/80 (102) 98 12/24/18 00:00 98.0 70 18 135/84 (101) 99 12/23/18 21:00 Room Air 12/23/18 20:00 99.1 83 17 136/84 (101) 100 12/23/18 17:54 98.2 12/23/18 16:00 98.2 97 21 135/83 (100) 94 12/23/18 12:00 20 12/23/18 12:00 97.6 102 20 153/92 (112) 96 12/23/18 09:00 Room Air Height (Feet): 5 Height (Inches): 0.90 Weight (Pounds): 197 Objective GENERAL: NAD HEENT: NCAT, MMM, EOMI LUNG: CTAB, No W HEART: RRR, S1, S2 ABDOMEN: Soft. NT, ND, There is a drain coming from his back. GENITOURINARY: Bragg in place. Microbiology Date/Time Source Procedure Growth Status 12/22/18 19:52 Blood Blood Culture - Preliminary NO GROWTH AFTER 24 HOURS Resulted 12/22/18 19:10 Blood Blood Culture - Preliminary NO GROWTH AFTER 24 HOURS Resulted Laboratory Tests Test 12/23/18 16:48 12/24/18 04:45 Sodium Level 133 MMOL/L (136-145) L Potassium Level 4.4 MMOL/L (3.5-5.1) Chloride Level 99 MMOL/L (98-107) Carbon Dioxide Level 28 MMOL/L (21-32) Anion Gap 6 mmol/L (5-15) Blood Urea Nitrogen 23 mg/dL (7-18) H Creatinine 0.7 MG/DL (0.55-1.30) Estimat Glomerular Filtration Rate > 60 mL/min (>60) Glucose Level 133 MG/DL (74-106) H Calcium Level 8.8 MG/DL (8.5-10.1) White Blood Count 10.6 K/UL (4.8-10.8) Red Blood Count 2.78 M/UL (4.70-6.10) L Hemoglobin 9.3 G/DL (14.2-18.0) L Hematocrit 26.2 % (42.0-52.0) L Mean Corpuscular Volume 94 FL (80-99) Mean Corpuscular Hemoglobin 33.3 PG (27.0-31.0) H Mean Corpuscular Hemoglobin Concent 35.3 G/DL (32.0-36.0) Red Cell Distribution Width 11.5 % (11.6-14.8) L Platelet Count 202 K/UL (150-450) Mean Platelet Volume 6.6 FL (6.5-10.1) Neutrophils (%) (Auto) % (45.0-75.0) Lymphocytes (%) (Auto) % (20.0-45.0) Monocytes (%) (Auto) % (1.0-10.0) Eosinophils (%) (Auto) % (0.0-3.0) Basophils (%) (Auto) % (0.0-2.0) Current Medications Medications (Trade) Dose Ordered Sig/Stephane Route PRN Reason Start Time Stop Time Status Last Admin Dose Admin Acetaminophen (Tylenol) 650 mg Q4H PRN ORAL headache or temp>101 12/21/18 18:00 01/20/19 17:59 Al Hydroxide/Mg Hydroxide (Mylanta II) 30 ml Q6H PRN ORAL dyspepsia 12/21/18 00:00 01/20/19 00:00 Allopurinol (Allopurinol) 300 mg DAILY ORAL 12/21/18 09:00 01/20/19 08:59 12/23/18 09:08 Cefepime HCl 1 gm/ Dextrose 55 ml @ 110 mls/hr Q12HR@0400,1600 IVPB 12/22/18 16:00 12/29/18 15:59 12/24/18 04:02 Dexamethasone (Decadron) 8 mg QID ORAL 12/21/18 09:00 01/20/19 08:59 12/23/18 21:03 Dextrose (Dextrose 50%) 25 ml Q30M PRN IV Hypoglycemia 12/21/18 00:00 01/20/19 00:00 Dextrose (Dextrose 50%) 50 ml Q30M PRN IV Hypoglycemia 12/21/18 00:00 01/20/19 00:00 Diphenhydramine HCl (Benadryl) 25 mg Q6H PRN ORAL Itching 12/22/18 09:00 01/21/19 08:59 Docusate Sodium (Colace) 100 mg TWICE A DAY ORAL 12/21/18 18:00 01/20/19 17:59 12/23/18 17:24 Famotidine (Pepcid) 20 mg BID ORAL 12/22/18 09:00 01/21/19 08:59 12/23/18 17:24 Lorazepam (Ativan) 1 mg BEDTIME ORAL 12/23/18 21:00 12/30/18 20:59 12/23/18 21:54 Magnesium Hydroxide (Mom) 30 ml QIDPRN PRN ORAL Constipation 12/21/18 18:00 01/20/19 17:59 Morphine Sulfate (Morphine Sulfate) 4 mg Q3H PRN IM Severe Pain (Pain Scale 7-10) 12/22/18 10:30 12/29/18 10:29 12/23/18 23:02 Ondansetron HCl (Zofran) 4 mg Q4H PRN IVP Nausea & Vomiting 12/22/18 09:00 01/21/19 08:59 Oxycodone HCl (Roxicodone) 10 mg Q4H PRN ORAL Mild Pain (Pain Scale 1-3) 12/22/18 09:00 12/29/18 08:59 Oxycodone HCl (Roxicodone) 15 mg Q3H PRN ORAL Moderate Breakthru Pain (5-7) 12/22/18 09:00 12/29/18 08:59 12/23/18 21:04 Patient Own Medication (Patient's Own Med) 1 ea QHS ORAL 12/22/18 21:00 01/21/19 20:59 UNV Polyethylene Glycol (Miralax) 17 gm HSPRN PRN ORAL Constipation 12/21/18 00:00 01/20/19 00:00 Pregabalin (Lyrica) 25 mg BID ORAL 12/22/18 18:00 01/21/19 17:59 12/23/18 17:24 Tamsulosin HCl (Flomax) 0.4 mg BEDTIME ORAL 12/23/18 21:00 01/22/19 20:59 12/23/18 21:04 Temazepam (Restoril) 15 mg HSPRN PRN ORAL Insomnia 12/21/18 18:00 12/28/18 17:59 12/23/18 23:51 Kingston Muhammad MD Dec 24, 2018 08:50
[2018-12-24] MEDS: Lyrica 25mg cap ORAL SCH ×2 (09:01→18:20)
[2018-12-24] MEDS: Docusate 100mg cap ORAL SCH ×2 (09:02→18:20)
--- NOTE | 2018-12-24 10:37 | Diagnostic Imaging Report ---
INDICATION: Pain, intraoperative TECHNIQUE: Intraoperative imaging Fluoroscopy time: 70.6 seconds Total dose: [id number] mGym2 Total number of images: 8 COMPARISON: None FINDINGS: Intraoperative images demonstrate placement of posterior fusion hardware in the lower thoracic and upper lumbar spine. IMPRESSION: Intraoperative imaging, as described
--- NOTE | 2018-12-24 10:46 | NUR ---
RD ASSESSMENT & RECOMMENDATIONS SEE CARE ACTIVITY FOR COMPLETE ASSESSMENT DAILY ESTIMATED NEEDS: Needs based on CA on chemo, 81kg abw 25-30 kcals/kg 8939-9413 total kcals 1-1.5 g protein/kg 81-121 g total protein 25-30 mL/kg total fluid mLs NUTRITION DIAGNOSIS: Increased kcal/prot needs R/T catabolic dx as evidenced by dx of Metastatic multiple myeloma to bone, on chemotherapy, s/p posterior fusion T10-L3, laminectomy and tumor resection. CURRENT DIET:REGULAR, ketogenic diet PO DIET RECOMMENDATIONS: REGULAR, double protein protions ADDITIONAL RECOMMENDATIONS: * Calibrated bedscale wt for accurate CBW * Pt is requesting Ketogetnic diet * Monitor PO intake and tolerance
--- NOTE | 2018-12-24 11:26 | Pulmonology Progress Note ---
Assessment/Plan Problems: (1) Metastatic multiple myeloma to bone (2) Multiple myeloma (3) Loss of bladder control (4) Spinal stenosis, thoracic Assessment/Plan doing better tolerated the surgery very well pain in controlled check wbc symptomatic treatment dvt prophylaxis Subjective ROS Limited/Unobtainable: No Interval Events: late note for 12/23/18 pain better controlled Allergies: Coded Allergies: LATEX (Verified Allergy, Unknown, 12/20/18) Objective Last 24 Hour Vital Signs Date Time Temp Pulse Resp B/P (MAP) Pulse Ox O2 Delivery O2 Flow Rate FiO2 12/24/18 09:00 Room Air 12/24/18 08:00 97.1 82 19 127/76 (93) 99 12/24/18 05:00 97.2 71 18 147/80 (102) 98 12/24/18 00:00 98.0 70 18 135/84 (101) 99 12/23/18 21:00 Room Air 12/23/18 20:00 99.1 83 17 136/84 (101) 100 12/23/18 17:54 98.2 12/23/18 16:00 98.2 97 21 135/83 (100) 94 12/23/18 12:00 20 12/23/18 12:00 97.6 102 20 153/92 (112) 96 Intake and Output 12/23/18 12/24/18 19:00 07:00 Intake Total 800 ml 1955 ml Output Total 1120 ml 2600 ml Balance -320 ml -645 ml Intake Oral 800 ml 1900 ml IV Total 55 ml Output Urine Total 1120 ml 2600 ml # Voids 2 General Appearance: WD/WN, cachetic HEENT: normocephalic, anicteric Respiratory/Chest: chest wall non-tender, lungs clear Abdomen: normal bowel sounds, no organomegaly Genitourinary: normal external genitalia Extremities: no cyanosis Neurologic/Psychiatric: quality associate II-XII grossly normal Lymphatic: no neck adenopathy Microbiology Date/Time Source Procedure Growth Status 12/22/18 19:52 Blood Blood Culture - Preliminary NO GROWTH AFTER 24 HOURS Resulted 12/22/18 19:10 Blood Blood Culture - Preliminary NO GROWTH AFTER 24 HOURS Resulted Laboratory Tests 12/23/18 16:48: Sodium Level 133L, Potassium Level 4.4, Chloride Level 99, Carbon Dioxide Level 28, Anion Gap 6, Blood Urea Nitrogen 23H, Creatinine 0.7, Estimat Glomerular Filtration Rate > 60, Glucose Level 133H, Calcium Level 8.8 12/24/18 04:45: White Blood Count 10.6, Red Blood Count 2.78L, Hemoglobin 9.3L, Hematocrit 26.2L , Mean Corpuscular Volume 94, Mean Corpuscular Hemoglobin 33.3H, Mean Corpuscular Hemoglobin Concent 35.3, Red Cell Distribution Width 11.5L, Platelet Count 202, Mean Platelet Volume 6.6, Neutrophils (%) (Auto) , Lymphocytes (%) (Auto) , Monocytes (%) (Auto) , Eosinophils (%) (Auto) , Basophils (%) (Auto) Current Medications Medications (Trade) Dose Ordered Sig/Stephane Route PRN Reason Start Time Stop Time Status Last Admin Dose Admin Acetaminophen (Tylenol) 650 mg Q4H PRN ORAL headache or temp>101 12/21/18 18:00 01/20/19 17:59 Al Hydroxide/Mg Hydroxide (Mylanta II) 30 ml Q6H PRN ORAL dyspepsia 12/21/18 00:00 01/20/19 00:00 Allopurinol (Allopurinol) 300 mg DAILY ORAL 12/21/18 09:00 01/20/19 08:59 12/24/18 09:01 Cefepime HCl 1 gm/ Dextrose 55 ml @ 110 mls/hr Q12HR@0400,1600 IVPB 12/22/18 16:00 12/29/18 15:59 12/24/18 04:02 Dexamethasone (Decadron) 8 mg QID ORAL 12/21/18 09:00 01/20/19 08:59 12/24/18 09:01 Dextrose (Dextrose 50%) 25 ml Q30M PRN IV Hypoglycemia 12/21/18 00:00 01/20/19 00:00 Dextrose (Dextrose 50%) 50 ml Q30M PRN IV Hypoglycemia 12/21/18 00:00 01/20/19 00:00 Diphenhydramine HCl (Benadryl) 25 mg Q6H PRN ORAL Itching 12/22/18 09:00 01/21/19 08:59 Docusate Sodium (Colace) 100 mg TWICE A DAY ORAL 12/21/18 18:00 01/20/19 17:59 12/24/18 09:02 Famotidine (Pepcid) 20 mg BID ORAL 12/22/18 09:00 01/21/19 08:59 12/24/18 09:00 Lorazepam (Ativan) 1 mg BEDTIME ORAL 12/23/18 21:00 12/30/18 20:59 12/23/18 21:54 Magnesium Hydroxide (Mom) 30 ml QIDPRN PRN ORAL Constipation 12/21/18 18:00 01/20/19 17:59 Morphine Sulfate (Morphine Sulfate) 4 mg Q3H PRN IM Severe Pain (Pain Scale 7-10) 12/22/18 10:30 12/29/18 10:29 12/23/18 23:02 Ondansetron HCl (Zofran) 4 mg Q4H PRN IVP Nausea & Vomiting 12/22/18 09:00 01/21/19 08:59 Oxycodone HCl (Roxicodone) 10 mg Q4H PRN ORAL Mild Pain (Pain Scale 1-3) 12/22/18 09:00 12/29/18 08:59 Oxycodone HCl (Roxicodone) 15 mg Q3H PRN ORAL Moderate Breakthru Pain (5-7) 12/22/18 09:00 12/29/18 08:59 12/23/18 21:04 Patient Own Medication (Patient's Own Med) 1 ea QHS ORAL 12/22/18 21:00 01/21/19 20:59 UNV Polyethylene Glycol (Miralax) 17 gm HSPRN PRN ORAL Constipation 12/21/18 00:00 01/20/19 00:00 Pregabalin (Lyrica) 25 mg BID ORAL 12/22/18 18:00 01/21/19 17:59 12/24/18 09:01 Tamsulosin HCl (Flomax) 0.4 mg BEDTIME ORAL 12/23/18 21:00 01/22/19 20:59 12/23/18 21:04 Temazepam (Restoril) 15 mg HSPRN PRN ORAL Insomnia 12/21/18 18:00 12/28/18 17:59 12/23/18 23:51 Paco Vanegas MD Dec 24, 2018 11:26
--- NOTE | 2018-12-24 11:27 | Pulmonology Progress Note ---
Assessment/Plan Problems: (1) Metastatic multiple myeloma to bone (2) Multiple myeloma (3) Loss of bladder control (4) Spinal stenosis, thoracic Assessment/Plan doesn't want to go to a rehab facility doing better tolerated the surgery very well pain in controlled check wbc symptomatic treatment dvt prophylaxis Subjective ROS Limited/Unobtainable: No Constitutional: Reports: no symptoms HEENT: Repors: no symptoms Allergies: Coded Allergies: LATEX (Verified Allergy, Unknown, 12/20/18) Objective Last 24 Hour Vital Signs Date Time Temp Pulse Resp B/P (MAP) Pulse Ox O2 Delivery O2 Flow Rate FiO2 12/24/18 09:00 Room Air 12/24/18 08:00 97.1 82 19 127/76 (93) 99 12/24/18 05:00 97.2 71 18 147/80 (102) 98 12/24/18 00:00 98.0 70 18 135/84 (101) 99 12/23/18 21:00 Room Air 12/23/18 20:00 99.1 83 17 136/84 (101) 100 12/23/18 17:54 98.2 12/23/18 16:00 98.2 97 21 135/83 (100) 94 12/23/18 12:00 20 12/23/18 12:00 97.6 102 20 153/92 (112) 96 Intake and Output 12/23/18 12/24/18 19:00 07:00 Intake Total 800 ml 1955 ml Output Total 1120 ml 2600 ml Balance -320 ml -645 ml Intake Oral 800 ml 1900 ml IV Total 55 ml Output Urine Total 1120 ml 2600 ml # Voids 2 General Appearance: WD/WN HEENT: normocephalic, atraumatic, PERRL Respiratory/Chest: chest wall non-tender, lungs clear Cardiovascular: normal peripheral pulses, regular rhythm Abdomen: normal bowel sounds, no organomegaly, no scars Extremities: no clubbing Skin: no rash Microbiology Date/Time Source Procedure Growth Status 12/22/18 19:52 Blood Blood Culture - Preliminary NO GROWTH AFTER 24 HOURS Resulted 12/22/18 19:10 Blood Blood Culture - Preliminary NO GROWTH AFTER 24 HOURS Resulted Laboratory Tests 12/23/18 16:48: Sodium Level 133L, Potassium Level 4.4, Chloride Level 99, Carbon Dioxide Level 28, Anion Gap 6, Blood Urea Nitrogen 23H, Creatinine 0.7, Estimat Glomerular Filtration Rate > 60, Glucose Level 133H, Calcium Level 8.8 12/24/18 04:45: White Blood Count 10.6, Red Blood Count 2.78L, Hemoglobin 9.3L, Hematocrit 26.2L , Mean Corpuscular Volume 94, Mean Corpuscular Hemoglobin 33.3H, Mean Corpuscular Hemoglobin Concent 35.3, Red Cell Distribution Width 11.5L, Platelet Count 202, Mean Platelet Volume 6.6, Neutrophils (%) (Auto) , Lymphocytes (%) (Auto) , Monocytes (%) (Auto) , Eosinophils (%) (Auto) , Basophils (%) (Auto) Current Medications Medications (Trade) Dose Ordered Sig/Stephane Route PRN Reason Start Time Stop Time Status Last Admin Dose Admin Acetaminophen (Tylenol) 650 mg Q4H PRN ORAL headache or temp>101 12/21/18 18:00 01/20/19 17:59 Al Hydroxide/Mg Hydroxide (Mylanta II) 30 ml Q6H PRN ORAL dyspepsia 12/21/18 00:00 01/20/19 00:00 Allopurinol (Allopurinol) 300 mg DAILY ORAL 12/21/18 09:00 01/20/19 08:59 12/24/18 09:01 Cefepime HCl 1 gm/ Dextrose 55 ml @ 110 mls/hr Q12HR@0400,1600 IVPB 12/22/18 16:00 12/29/18 15:59 12/24/18 04:02 Dexamethasone (Decadron) 8 mg QID ORAL 12/21/18 09:00 01/20/19 08:59 12/24/18 09:01 Dextrose (Dextrose 50%) 25 ml Q30M PRN IV Hypoglycemia 12/21/18 00:00 01/20/19 00:00 Dextrose (Dextrose 50%) 50 ml Q30M PRN IV Hypoglycemia 12/21/18 00:00 01/20/19 00:00 Diphenhydramine HCl (Benadryl) 25 mg Q6H PRN ORAL Itching 12/22/18 09:00 01/21/19 08:59 Docusate Sodium (Colace) 100 mg TWICE A DAY ORAL 12/21/18 18:00 01/20/19 17:59 12/24/18 09:02 Famotidine (Pepcid) 20 mg BID ORAL 12/22/18 09:00 01/21/19 08:59 12/24/18 09:00 Lorazepam (Ativan) 1 mg BEDTIME ORAL 12/23/18 21:00 12/30/18 20:59 12/23/18 21:54 Magnesium Hydroxide (Mom) 30 ml QIDPRN PRN ORAL Constipation 12/21/18 18:00 01/20/19 17:59 Morphine Sulfate (Morphine Sulfate) 4 mg Q3H PRN IM Severe Pain (Pain Scale 7-10) 12/22/18 10:30 12/29/18 10:29 12/23/18 23:02 Ondansetron HCl (Zofran) 4 mg Q4H PRN IVP Nausea & Vomiting 12/22/18 09:00 01/21/19 08:59 Oxycodone HCl (Roxicodone) 10 mg Q4H PRN ORAL Mild Pain (Pain Scale 1-3) 12/22/18 09:00 12/29/18 08:59 Oxycodone HCl (Roxicodone) 15 mg Q3H PRN ORAL Moderate Breakthru Pain (5-7) 12/22/18 09:00 12/29/18 08:59 12/23/18 21:04 Patient Own Medication (Patient's Own Med) 1 ea QHS ORAL 12/22/18 21:00 01/21/19 20:59 UNV Polyethylene Glycol (Miralax) 17 gm HSPRN PRN ORAL Constipation 12/21/18 00:00 01/20/19 00:00 Pregabalin (Lyrica) 25 mg BID ORAL 12/22/18 18:00 01/21/19 17:59 12/24/18 09:01 Tamsulosin HCl (Flomax) 0.4 mg BEDTIME ORAL 12/23/18 21:00 01/22/19 20:59 12/23/18 21:04 Temazepam (Restoril) 15 mg HSPRN PRN ORAL Insomnia 12/21/18 18:00 12/28/18 17:59 12/23/18 23:51 Paco Vanegas MD Dec 24, 2018 11:27
[2018-12-24 12:00] VITALS: BP 139/85
[2018-12-24] MEDS: oxyCODONE 15mg IR tab ORAL PRN (13:35)
[2018-12-24 16:00] VITALS: BP 133/90
--- NOTE | 2018-12-24 19:32 | Cardiology Report ---
APPROVED REPORT EKG Measurement Heart [id number] Normal sinus rhythm Possible Left atrial enlargement Borderline ECG
--- NOTE | 2018-12-24 19:37 | NUR ---
HAND-OFF: Report given to Pineda ZAIDI. Patient is stable.
--- NOTE | 2018-12-24 19:45 | NUR ---
NURSE NOTES: Received report from DYAN Greene. Received pt in bed, AOX4, pain level 0/10, surgical dressing C/D/I, no distress noted. Bragg to gravity with good output. Safety measures maintained. Bed in lowest position and locked, side rails up x 2, call light within reach. Family at bedside. Will continue to monitor.
[2018-12-24 20:00] VITALS: BP 133/84
--- NOTE | 2018-12-24 20:18 | Internal Med Progress Note ---
Subjective Date of Service: Dec 24, 2018 Physician Name Maged Shaver Attending Physician Uriah Neves MD Current Medications Medications (Trade) Dose Ordered Sig/Stephane Route PRN Reason Start Time Stop Time Status Last Admin Dose Admin Acetaminophen (Tylenol) 650 mg Q4H PRN ORAL headache or temp>101 12/21/18 18:00 01/20/19 17:59 Al Hydroxide/Mg Hydroxide (Mylanta II) 30 ml Q6H PRN ORAL dyspepsia 12/21/18 00:00 01/20/19 00:00 Allopurinol (Allopurinol) 300 mg DAILY ORAL 12/21/18 09:00 01/20/19 08:59 12/24/18 09:01 Cefepime HCl 1 gm/ Dextrose 55 ml @ 110 mls/hr Q12HR@0400,1600 IVPB 12/22/18 16:00 12/29/18 15:59 12/24/18 16:29 Dexamethasone (Decadron) 8 mg QID ORAL 12/21/18 09:00 01/20/19 08:59 12/24/18 18:19 Dextrose (Dextrose 50%) 25 ml Q30M PRN IV Hypoglycemia 12/21/18 00:00 01/20/19 00:00 Dextrose (Dextrose 50%) 50 ml Q30M PRN IV Hypoglycemia 12/21/18 00:00 01/20/19 00:00 Diphenhydramine HCl (Benadryl) 25 mg Q6H PRN ORAL Itching 12/22/18 09:00 01/21/19 08:59 Docusate Sodium (Colace) 100 mg TWICE A DAY ORAL 12/21/18 18:00 01/20/19 17:59 12/24/18 18:20 Famotidine (Pepcid) 20 mg BID ORAL 12/22/18 09:00 01/21/19 08:59 12/24/18 18:20 Lorazepam (Ativan) 1 mg BEDTIME ORAL 12/23/18 21:00 12/30/18 20:59 12/23/18 21:54 Magnesium Hydroxide (Mom) 30 ml QIDPRN PRN ORAL Constipation 12/21/18 18:00 01/20/19 17:59 Morphine Sulfate (Morphine Sulfate) 4 mg Q3H PRN IM Severe Pain (Pain Scale 7-10) 12/22/18 10:30 12/29/18 10:29 12/23/18 23:02 Ondansetron HCl (Zofran) 4 mg Q4H PRN IVP Nausea & Vomiting 12/22/18 09:00 01/21/19 08:59 Oxycodone HCl (Roxicodone) 10 mg Q4H PRN ORAL Mild Pain (Pain Scale 1-3) 12/22/18 09:00 12/29/18 08:59 Oxycodone HCl (Roxicodone) 15 mg Q3H PRN ORAL Moderate Breakthru Pain (5-7) 12/22/18 09:00 12/29/18 08:59 12/24/18 13:35 Patient Own Medication (Patient's Own Med) 1 ea QHS ORAL 12/22/18 21:00 01/21/19 20:59 UNV Polyethylene Glycol (Miralax) 17 gm HSPRN PRN ORAL Constipation 12/21/18 00:00 01/20/19 00:00 Pregabalin (Lyrica) 25 mg BID ORAL 12/22/18 18:00 01/21/19 17:59 12/24/18 18:20 Tamsulosin HCl (Flomax) 0.4 mg BEDTIME ORAL 12/23/18 21:00 01/22/19 20:59 12/23/18 21:04 Temazepam (Restoril) 15 mg HSPRN PRN ORAL Insomnia 12/21/18 18:00 12/28/18 17:59 12/23/18 23:51 Allergies: Coded Allergies: LATEX (Verified Allergy, Unknown, 12/20/18) ROS Limited/Unobtainable: No Constitutional: Reports: no symptoms HEENT: Reports: no symptoms Cardiovascular: Reports: no symptoms Respiratory: Reports: no symptoms Gastrointestinal/Abdominal: Reports: no symptoms Genitourinary: Reports: no symptoms Neurologic/Psychiatric: Reports: no symptoms Subjective 53 YO M admitted with multiple myeloma and T11-T12 tumor. S/P posterior fusion T10-L3 , laminectomy and tumor resection on 12/21/18. Cover for Int [facility]-Dr Neves Objective Last Vital Signs Date Time Temp Pulse Resp B/P (MAP) Pulse Ox O2 Delivery O2 Flow Rate FiO2 12/24/18 16:00 97.7 82 20 133/90 (104) 94 4/8/19 09:00 Room Air 12/21/18 21:00 2.0 Laboratory Tests Test 12/24/18 04:45 White Blood Count 10.6 K/UL (4.8-10.8) Red Blood Count 2.78 M/UL (4.70-6.10) L Hemoglobin 9.3 G/DL (14.2-18.0) L Hematocrit 26.2 % (42.0-52.0) L Mean Corpuscular Volume 94 FL (80-99) Mean Corpuscular Hemoglobin 33.3 PG (27.0-31.0) H Mean Corpuscular Hemoglobin Concent 35.3 G/DL (32.0-36.0) Red Cell Distribution Width 11.5 % (11.6-14.8) L Platelet Count 202 K/UL (150-450) Mean Platelet Volume 6.6 FL (6.5-10.1) Neutrophils (%) (Auto) % (45.0-75.0) Lymphocytes (%) (Auto) % (20.0-45.0) Monocytes (%) (Auto) % (1.0-10.0) Eosinophils (%) (Auto) % (0.0-3.0) Basophils (%) (Auto) % (0.0-2.0) Microbiology Date/Time Source Procedure Growth Status 12/22/18 19:52 Blood Blood Culture - Preliminary NO GROWTH AFTER 24 HOURS Resulted 12/22/18 19:10 Blood Blood Culture - Preliminary NO GROWTH AFTER 24 HOURS Resulted Intake and Output 12/23/18 12/24/18 18:59 06:59 Intake Total 800 ml 1955 ml Output Total 1120 ml 2600 ml Balance -320 ml -645 ml Intake Oral 800 ml 1900 ml IV Total 55 ml Output Urine Total 1120 ml 2600 ml # Voids 2 Objective Objective General: No acute distress, awake and alert HEENT: NCAT, sclera anicteric, PERRL, EOMI. Neck: Supple, no significant jugular venous distention, Lungs: Good inspiratory effort,, no Wheeze or Rales. Heart: Regular rate and rhythm, normal S1/S2, no murmurs. Abdomen: soft, nontender, nondistended. Normoactive bowel sounds. Back: surgical incision intact dressing. Extremities: No Cyanosis , clubbing or edema. Neuro: A&O x 3, Able to move all extremities Skin: warm, no rashes or lesions Psych: Normal mood and affect Assessment/Plan Assessment/Plan Assessment/Plan Assessment/Plan (1) Metastatic multiple myeloma to bone ICD Codes: C90.00 - Multiple myeloma not having achieved remission SNOMED: 095751229 (2) Multiple myeloma ICD Codes: C90.00 - Multiple myeloma not having achieved remission SNOMED: 204490112 (3) Loss of Bowel and bladder function most likely due to cord compression with T11-12, paraparesis S/P T10 to L3 PSF, vert augmentation T10, 11, L1 and L2, Laminectomy/tumor resection T11, T12 and pediclectomy and vertebrectomy R t12 (12/21/2018). 4. Hyponatremia Plan: Follow-up with the spine surgery recommendation Dr. Harshad Grewal. DVT prophylaxis with SCD. CODE STATUS is full code. PT mobility in the morning. Discussed with the family member extensively at the bedside with regard to the care will be provided. S/P T10-L3 POSTERIOR SPINAL FUSION, LAMINECTOMY AND T-11-12 TUMOR RESECTION ON CONTINUE IV NS [facility]. Maged Shaver MD Dec 24, 2018 20:18
--- NOTE | 2018-12-24 20:35 | NUR ---
NURSE NOTES: Pt and pt's sister wants to know when Dr. Shaver will come this evening. Informed pt and family that doctor's don't have a specific time when they will show up. Paged Dr. Shaver to find out if MD will come tonight. Awaiting for call back.
[2018-12-24] MEDS: LORazepam 1mg tab ORAL SCH (20:57)
[2018-12-24] MEDS: Tamsulosin 0.4mg cap ORAL SCH (20:57)
--- NOTE | 2018-12-24 21:09 | NUR ---
NURSE NOTES: Dr Shaver called back unable to transfer call to pt's room, hung up the phone.
[2018-12-25] VITALS: BP 134/86
[2018-12-25] MEDS: Cefepime HCl 1 GM in D5W 55 ML IVPB SCH (04:35)
[2018-12-25 05:04] VITALS: BP 124/80
[2018-12-25 06:45] LABS: HEMATOCRIT 26.4 % (42.0-52.0); HEMOGLOBIN 9.2 G/DL (14.2-18.0); MEAN CORPUSCULAR VOLUME 95 FL (80-99); PLATELET COUNT 222 K/UL (150-450); RED BLOOD COUNT 2.78 M/UL (4.70-6.10); RED CELL DISTRIBUTION WIDTH 11.8 % (11.6-14.8); WHITE BLOOD COUNT 11.2 K/UL (4.8-10.8)
[2018-12-25 07:04] LABS: ANION GAP 9 mmol/L (5-15); BLOOD UREA NITROGEN 23 mg/dL (7-18); CALCIUM 8.9 MG/DL (8.5-10.1); CARBON DIOXIDE 28 MMOL/L (21-32); CHLORIDE 98 MMOL/L (98-107); CREATININE 0.8 MG/DL (0.55-1.30); POTASSIUM 3.8 MMOL/L (3.5-5.1); SODIUM 135 MMOL/L (136-145)
--- NOTE | 2018-12-25 07:22 | NUR ---
HAND-OFF: Report given to DYAN Aleman. Pt in stable condition.
--- NOTE | 2018-12-25 07:25 | NUR ---
NURSE NOTES:WALKING ROUNDS DONE WITH NIGHT RN(JALYN),PATIENT EATING BREAKFAST,A/OX4,ROOM AIR,NO C/O PAIN.IV SITE RAC#20 INTACT.BACK DRSNG.CLEAN,DRY,INTACT.SEEN BY DR. BARTON ORDERS CARRIED OUT.
--- NOTE | 2018-12-25 07:43 | Urology Progress Note ---
Assessment/Plan Assessment/Plan 1. Lower urinary tract symptoms and incontinence hx. 2. Probable neurogenic bladder. 3. BPH. 4. Urinary retention. monitor clinically failed 1st voiding trial balderas placed back 12/23 flomax added repeat voiding trial today ambulate minimize narcotics reassess voiding sx's after balderas removed monitor PVR and reinsert balderas PRN if PVR >400 cc outpt cysto d/w pt fully d/w nursing staff Subjective Allergies: Coded Allergies: LATEX (Verified Allergy, Unknown, 12/20/18) Subjective all noted, feels fair, failed voiding trial yest, balderas reinserted, >600 cc by report Objective Last 24 Hour Vital Signs Date Time Temp Pulse Resp B/P (MAP) Pulse Ox O2 Delivery O2 Flow Rate FiO2 12/25/18 05:04 97.8 76 18 124/80 (95) 99 12/25/18 00:00 97.6 68 18 134/86 (102) 95 12/24/18 21:00 Room Air 12/24/18 20:00 98.3 79 18 133/84 (100) 97 12/24/18 16:00 97.7 82 20 133/90 (104) 94 12/24/18 12:00 97.6 96 18 139/85 (103) 98 12/24/18 09:00 Room Air 12/24/18 08:00 97.1 82 19 127/76 (93) 99 Intake and Output 12/24/18 12/25/18 19:00 07:00 Intake Total 200 ml 1955 ml Output Total 2200 ml 3000 ml Balance -2000 ml -1045 ml Intake Oral 200 ml 1900 ml IV Total 55 ml Output Urine Total 2200 ml 3000 ml Microbiology Date/Time Source Procedure Growth Status 12/22/18 19:52 Blood Blood Culture - Preliminary NO GROWTH AFTER 48 HOURS Resulted Current Medications Medications (Trade) Dose Ordered Sig/Stephane Route PRN Reason Start Time Stop Time Status Last Admin Dose Admin Acetaminophen (Tylenol) 650 mg Q4H PRN ORAL headache or temp>101 12/21/18 18:00 01/20/19 17:59 Al Hydroxide/Mg Hydroxide (Mylanta II) 30 ml Q6H PRN ORAL dyspepsia 12/21/18 00:00 01/20/19 00:00 Allopurinol (Allopurinol) 300 mg DAILY ORAL 12/21/18 09:00 01/20/19 08:59 12/24/18 09:01 Cefepime HCl 1 gm/ Dextrose 55 ml @ 110 mls/hr Q12HR@0400,1600 IVPB 12/22/18 16:00 12/29/18 15:59 12/25/18 04:35 Dexamethasone (Decadron) 8 mg QID ORAL 12/21/18 09:00 01/20/19 08:59 12/24/18 20:57 Dextrose (Dextrose 50%) 25 ml Q30M PRN IV Hypoglycemia 12/21/18 00:00 01/20/19 00:00 Dextrose (Dextrose 50%) 50 ml Q30M PRN IV Hypoglycemia 12/21/18 00:00 01/20/19 00:00 Diphenhydramine HCl (Benadryl) 25 mg Q6H PRN ORAL Itching 12/22/18 09:00 01/21/19 08:59 Docusate Sodium (Colace) 100 mg TWICE A DAY ORAL 12/21/18 18:00 01/20/19 17:59 12/24/18 18:20 Famotidine (Pepcid) 20 mg BID ORAL 12/22/18 09:00 01/21/19 08:59 12/24/18 18:20 Lorazepam (Ativan) 1 mg BEDTIME ORAL 12/23/18 21:00 12/30/18 20:59 12/24/18 20:57 Magnesium Hydroxide (Mom) 30 ml QIDPRN PRN ORAL Constipation 12/21/18 18:00 01/20/19 17:59 Morphine Sulfate (Morphine Sulfate) 4 mg Q3H PRN IM Severe Pain (Pain Scale 7-10) 12/22/18 10:30 12/29/18 10:29 12/23/18 23:02 Ondansetron HCl (Zofran) 4 mg Q4H PRN IVP Nausea & Vomiting 12/22/18 09:00 01/21/19 08:59 Oxycodone HCl (Roxicodone) 10 mg Q4H PRN ORAL Mild Pain (Pain Scale 1-3) 12/22/18 09:00 12/29/18 08:59 Oxycodone HCl (Roxicodone) 15 mg Q3H PRN ORAL Moderate Breakthru Pain (5-7) 12/22/18 09:00 12/29/18 08:59 12/24/18 13:35 Patient Own Medication (Patient's Own Med) 1 ea QHS ORAL 12/22/18 21:00 01/21/19 20:59 UNV Polyethylene Glycol (Miralax) 17 gm HSPRN PRN ORAL Constipation 12/21/18 00:00 01/20/19 00:00 Pregabalin (Lyrica) 25 mg BID ORAL 12/22/18 18:00 01/21/19 17:59 12/24/18 18:20 Tamsulosin HCl (Flomax) 0.4 mg BEDTIME ORAL 12/23/18 21:00 01/22/19 20:59 12/24/18 20:57 Temazepam (Restoril) 15 mg HSPRN PRN ORAL Insomnia 12/21/18 18:00 12/28/18 17:59 12/24/18 23:13 Laboratory Tests 12/25/18 05:05: White Blood Count 11.2H, Red Blood Count 2.78L, Hemoglobin 9.2L, Hematocrit 26.4L, Mean Corpuscular Volume 95, Mean Corpuscular Hemoglobin 32.9H, Mean Corpuscular Hemoglobin Concent 34.7, Red Cell Distribution Width 11.8, Platelet Count 222, Mean Platelet Volume 6.5, Neutrophils (%) (Auto) , Lymphocytes (%) ( Auto) , Monocytes (%) (Auto) , Eosinophils (%) (Auto) , Basophils (%) (Auto) , Neutrophils % (Manual) [Pending], Lymphocytes % (Manual) [Pending], Platelet Estimate [Pending], Platelet Morphology [Pending], Sodium Level 135L, Potassium Level 3.8, Chloride Level 98, Carbon Dioxide Level 28, Anion Gap 9, Blood Urea Nitrogen 23H, Creatinine 0.8, Estimat Glomerular Filtration Rate > 60, Glucose Level 120H, Calcium Level 8.9 Height (Feet): 5 Height (Inches): 0.90 Weight (Pounds): 197 Objective exam stable balderas indwelling, grossly yellow urine Lb Rocha MD Dec 25, 2018 07:43
[2018-12-25 07:51] VITALS: BP 134/78
--- NOTE | 2018-12-25 08:00 | NUR ---
NURSE NOTES:F/C DC/D,URINAL PROVIDED.ADVISED RE:TAKE PO INTAKE AND MONITOR FOR VOIDING.
--- NOTE | 2018-12-25 08:15 | Infectious Diseases Prog Note ---
Assessment/Plan Assessment/Plan Abx: Ancef 12/21- IV Vancomycin x1 12/21 Assessment: Probable Sepsis vs post-op- but patient immunocompromised- r/o source of infection (specially UTI given neurogenic bladder) UA (-) Blood Cx 12/22/18 - NGTD CXR: no acute disease Low grade fever - Resolved Leukocytosis- Resolved -CXR: no acute disease Multiple myeloma previously on remission and recently found recurrence w/ multiple metastases to thoracic and lumbar spine currently on chemotherapy( started on 12/13) and decadron -12/21 SP T10-12, L1-L3 posterior spinal fusion, Laminectomy and resection of tumor T11 and T12 on the right side and T12 pediclectomy and vertebrectomy on 12/21 -MRI Lumbar spine: : Extensive T12 lesion, also described on separate thoracic spine MRI report, resulting in compression of the distal cord, conus medullaris, and proximal cauda equina as well as a T12 pathologic compression fracture. Other lesions, presumably disseminated multiple myeloma given stated clinical history, within T11, L1, L2, the sacrum, and bilateral iliac bones. No evidence of neural compromise or pathologic fracture related to such. Distended bladder -MRI Thoracic spine: Extensive tumor involving the T12 vertebral body, with invasion of the spinal canal, evidence of distal cord/conus medullaris/ proximal cauda equina compression, as well as a pathologic T12 compression fracture. Evidence of a slight degree of myelomalacia as a result. Multiple other deposits of tumor as detailed on a level by level basis above. Note that there is minimal spinal canal invasion by the T10-11 lesion. Findings most likely represent myelomatous deposits, given stated clinical history of multiple myeloma. BPH neurogenic bladder Plan: -Continue Cefepime #3/5 - short course for possible UTI -f/u cx -Monitor CBC/CMP, temperatures -wound care per surgical team -aspiration precautions Will continue to follow along with you. Subjective Allergies: Coded Allergies: LATEX (Verified Allergy, Unknown, 12/20/18) Subjective Afebrile Leukocytosis mild Urinary retention when balderas removed Objective Vital Signs Last 24 Hour Vital Signs Date Time Temp Pulse Resp B/P (MAP) Pulse Ox O2 Delivery O2 Flow Rate FiO2 12/25/18 07:51 97.9 87 18 134/78 (96) 98 12/25/18 05:04 97.8 76 18 124/80 (95) 99 12/25/18 00:00 97.6 68 18 134/86 (102) 95 12/24/18 21:00 Room Air 12/24/18 20:00 98.3 79 18 133/84 (100) 97 12/24/18 16:00 97.7 82 20 133/90 (104) 94 12/24/18 12:00 97.6 96 18 139/85 (103) 98 12/24/18 09:00 Room Air Height (Feet): 5 Height (Inches): 0.90 Weight (Pounds): 197 Objective GENERAL: NAD, satting well on RA HEENT: NCAT, MMM, EOMI LUNG: CTAB, No W HEART: RRR, S1, S2 ABDOMEN: Soft. NT, ND, There is a drain coming from his back. GENITOURINARY: Balderas in place. Microbiology Date/Time Source Procedure Growth Status 12/22/18 19:52 Blood Blood Culture - Preliminary NO GROWTH AFTER 48 HOURS Resulted 12/22/18 19:10 Blood Blood Culture - Preliminary NO GROWTH AFTER 48 HOURS Resulted Laboratory Tests Test 12/25/18 05:05 White Blood Count 11.2 K/UL (4.8-10.8) H Red Blood Count 2.78 M/UL (4.70-6.10) L Hemoglobin 9.2 G/DL (14.2-18.0) L Hematocrit 26.4 % (42.0-52.0) L Mean Corpuscular Volume 95 FL (80-99) Mean Corpuscular Hemoglobin 32.9 PG (27.0-31.0) H Mean Corpuscular Hemoglobin Concent 34.7 G/DL (32.0-36.0) Red Cell Distribution Width 11.8 % (11.6-14.8) Platelet Count 222 K/UL (150-450) Mean Platelet Volume 6.5 FL (6.5-10.1) Neutrophils (%) (Auto) % (45.0-75.0) Lymphocytes (%) (Auto) % (20.0-45.0) Monocytes (%) (Auto) % (1.0-10.0) Eosinophils (%) (Auto) % (0.0-3.0) Basophils (%) (Auto) % (0.0-2.0) Neutrophils % (Manual) Pending Lymphocytes % (Manual) Pending Platelet Estimate Pending Platelet Morphology Pending Sodium Level 135 MMOL/L (136-145) L Potassium Level 3.8 MMOL/L (3.5-5.1) Chloride Level 98 MMOL/L (98-107) Carbon Dioxide Level 28 MMOL/L (21-32) Anion Gap 9 mmol/L (5-15) Blood Urea Nitrogen 23 mg/dL (7-18) H Creatinine 0.8 MG/DL (0.55-1.30) Estimat Glomerular Filtration Rate > 60 mL/min (>60) Glucose Level 120 MG/DL (74-106) H Calcium Level 8.9 MG/DL (8.5-10.1) Current Medications Medications (Trade) Dose Ordered Sig/Stephane Route PRN Reason Start Time Stop Time Status Last Admin Dose Admin Acetaminophen (Tylenol) 650 mg Q4H PRN ORAL headache or temp>101 12/21/18 18:00 01/20/19 17:59 Al Hydroxide/Mg Hydroxide (Mylanta II) 30 ml Q6H PRN ORAL dyspepsia 12/21/18 00:00 01/20/19 00:00 Allopurinol (Allopurinol) 300 mg DAILY ORAL 12/21/18 09:00 01/20/19 08:59 12/24/18 09:01 Cefepime HCl 1 gm/ Dextrose 55 ml @ 110 mls/hr Q12HR@0400,1600 IVPB 12/22/18 16:00 12/29/18 15:59 12/25/18 04:35 Dexamethasone (Decadron) 8 mg QID ORAL 12/21/18 09:00 01/20/19 08:59 12/24/18 20:57 Dextrose (Dextrose 50%) 25 ml Q30M PRN IV Hypoglycemia 12/21/18 00:00 01/20/19 00:00 Dextrose (Dextrose 50%) 50 ml Q30M PRN IV Hypoglycemia 12/21/18 00:00 01/20/19 00:00 Diphenhydramine HCl (Benadryl) 25 mg Q6H PRN ORAL Itching 12/22/18 09:00 01/21/19 08:59 Docusate Sodium (Colace) 100 mg TWICE A DAY ORAL 12/21/18 18:00 5/5/19 17:59 12/24/18 18:20 Famotidine (Pepcid) 20 mg BID ORAL 12/22/18 09:00 01/21/19 08:59 12/24/18 18:20 Lorazepam (Ativan) 1 mg BEDTIME ORAL 12/23/18 21:00 12/30/18 20:59 12/24/18 20:57 Magnesium Hydroxide (Mom) 30 ml QIDPRN PRN ORAL Constipation 12/21/18 18:00 01/20/19 17:59 Morphine Sulfate (Morphine Sulfate) 4 mg Q3H PRN IM Severe Pain (Pain Scale 7-10) 12/22/18 10:30 12/29/18 10:29 12/23/18 23:02 Ondansetron HCl (Zofran) 4 mg Q4H PRN IVP Nausea & Vomiting 12/22/18 09:00 01/21/19 08:59 Oxycodone HCl (Roxicodone) 10 mg Q4H PRN ORAL Mild Pain (Pain Scale 1-3) 12/22/18 09:00 12/29/18 08:59 Oxycodone HCl (Roxicodone) 15 mg Q3H PRN ORAL Moderate Breakthru Pain (5-7) 12/22/18 09:00 12/29/18 08:59 12/24/18 13:35 Patient Own Medication (Patient's Own Med) 1 ea QHS ORAL 12/22/18 21:00 01/21/19 20:59 UNV Polyethylene Glycol (Miralax) 17 gm HSPRN PRN ORAL Constipation 12/21/18 00:00 01/20/19 00:00 Pregabalin (Lyrica) 25 mg BID ORAL 12/22/18 18:00 01/21/19 17:59 12/24/18 18:20 Tamsulosin HCl (Flomax) 0.4 mg BEDTIME ORAL 12/23/18 21:00 01/22/19 20:59 12/24/18 20:57 Temazepam (Restoril) 15 mg HSPRN PRN ORAL Insomnia 12/21/18 18:00 12/28/18 17:59 12/24/18 23:13 Kingston Muhammad MD Dec 25, 2018 08:15
[2018-12-25] MEDS: Docusate 100mg cap ORAL SCH ×2 (08:16→17:31)
[2018-12-25] MEDS: Lyrica 25mg cap ORAL SCH ×2 (08:20→17:48)
--- NOTE | 2018-12-25 10:26 | NUR ---
DISCHARGE PLAN FLEA MARKET SELLER SPOKE WITH PATIENT YESTERDAY HE DOES NOT WANT TO GO TO [place] UP[place] DISCHARGE PATIENT WOULD LIKE TO GO HOME WITH HOME HEALTH FOR PHYSICAL THERAPY Addendum: 12/25/18 at 1030 by LIZZETH GARCIA LVN LVN LEFT MESSAGE AT [employer] REQUESTING CONTRACTED HOME HEALTH LIST Addendum: 12/25/18 at 1131 by LIZZETH GARCIA LVN LVN REFERRED TO [facility] ~ NO NURSES AVAILABLE IN PATIENT'S AREA
--- NOTE | 2018-12-25 10:30 | NUR ---
NURSE NOTES:ASSISTED TO BATHROOM,HAD LARGE BM.VOIDED ONLY 10CC,NO C/O BLADDER DISCOMFORT.NO DISTENTION NOTED,BLADDER SCAN SHOWS 513,DOUBLE CHECKED WITH TOYA ZAIDI.PATIENT REFUSED FOR VAUGHN INSERTION THIS TIME.
--- NOTE | 2018-12-25 11:00 | NUR ---
NURSE NOTES:AMBULATED WITH PHYSICAL THERAPY USING FRONT WHEELED WALKER
[2018-12-25 12:00] VITALS: BP 142/99
--- NOTE | 2018-12-25 12:08 | Pulmonology Progress Note ---
Assessment/Plan Problems: (1) Metastatic multiple myeloma to bone (2) Multiple myeloma (3) Loss of bladder control (4) Spinal stenosis, thoracic Assessment/Plan doesn't want to go to a rehab facility balderas is out needs to lear self-catheterization doing better tolerated the surgery very well pain in controlled symptomatic treatment dvt prophylaxis Subjective ROS Limited/Unobtainable: No Constitutional: Reports: no symptoms HEENT: Repors: no symptoms Allergies: Coded Allergies: LATEX (Verified Allergy, Unknown, 12/20/18) Objective Last 24 Hour Vital Signs Date Time Temp Pulse Resp B/P (MAP) Pulse Ox O2 Delivery O2 Flow Rate FiO2 12/25/18 07:51 97.9 87 18 134/78 (96) 98 12/25/18 07:35 Room Air 12/25/18 07:35 Room Air 12/25/18 05:04 97.8 76 18 124/80 (95) 99 12/25/18 00:00 97.6 68 18 134/86 (102) 95 12/24/18 21:00 Room Air 12/24/18 20:00 98.3 79 18 133/84 (100) 97 12/24/18 16:00 97.7 82 20 133/90 (104) 94 Intake and Output 12/24/18 12/25/18 19:00 07:00 Intake Total 200 ml 1955 ml Output Total 2200 ml 3000 ml Balance -2000 ml -1045 ml Intake Oral 200 ml 1900 ml IV Total 55 ml Output Urine Total 2200 ml 3000 ml General Appearance: WD/WN HEENT: normocephalic, anicteric Respiratory/Chest: chest wall non-tender, lungs clear Cardiovascular: normal peripheral pulses, normal rate Abdomen: normal bowel sounds, soft, non tender Genitourinary: normal external genitalia Skin: no lesions 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 Microbiology Date/Time Source Procedure Growth Status 12/22/18 19:52 Blood Blood Culture - Preliminary NO GROWTH AFTER 48 HOURS Resulted 12/22/18 19:10 Blood Blood Culture - Preliminary NO GROWTH AFTER 48 HOURS Resulted Laboratory Tests 12/25/18 05:05: White Blood Count 11.2H, Red Blood Count 2.78L, Hemoglobin 9.2L, Hematocrit 26.4L, Mean Corpuscular Volume 95, Mean Corpuscular Hemoglobin 32.9H, Mean Corpuscular Hemoglobin Concent 34.7, Red Cell Distribution Width 11.8, Platelet Count 222, Mean Platelet Volume 6.5, Neutrophils (%) (Auto) , Lymphocytes (%) ( Auto) , Monocytes (%) (Auto) , Eosinophils (%) (Auto) , Basophils (%) (Auto) , Differential Total Cells Counted 100, Neutrophils % (Manual) 87H, Lymphocytes % (Manual) 8L, Monocytes % (Manual) 5, Eosinophils % (Manual) 0, Basophils % ( Manual) 0, Band Neutrophils 0, Platelet Estimate Adequate, Platelet Morphology Normal, Hypochromasia 2+, Anisocytosis 1+, Sodium Level 135L, Potassium Level 3.8, Chloride Level 98, Carbon Dioxide Level 28, Anion Gap 9, Blood Urea Nitrogen 23H, Creatinine 0.8, Estimat Glomerular Filtration Rate > 60, Glucose Level 120H, Calcium Level 8.9 Current Medications Medications (Trade) Dose Ordered Sig/Stephane Route PRN Reason Start Time Stop Time Status Last Admin Dose Admin Acetaminophen (Tylenol) 650 mg Q4H PRN ORAL headache or temp>101 12/21/18 18:00 01/20/19 17:59 Al Hydroxide/Mg Hydroxide (Mylanta II) 30 ml Q6H PRN ORAL dyspepsia 12/21/18 00:00 01/20/19 00:00 Allopurinol (Allopurinol) 300 mg DAILY ORAL 12/21/18 09:00 01/20/19 08:59 12/25/18 08:15 Dexamethasone (Decadron) 8 mg QID ORAL 12/21/18 09:00 01/20/19 08:59 12/25/18 08:16 Dextrose (Dextrose 50%) 25 ml Q30M PRN IV Hypoglycemia 12/21/18 00:00 01/20/19 00:00 Dextrose (Dextrose 50%) 50 ml Q30M PRN IV Hypoglycemia 12/21/18 00:00 01/20/19 00:00 Diphenhydramine HCl (Benadryl) 25 mg Q6H PRN ORAL Itching 12/22/18 09:00 01/21/19 08:59 Docusate Sodium (Colace) 100 mg TWICE A DAY ORAL 12/21/18 18:00 01/20/19 17:59 12/25/18 08:16 Famotidine (Pepcid) 20 mg BID ORAL 12/22/18 09:00 01/21/19 08:59 12/25/18 08:16 Lorazepam (Ativan) 1 mg BEDTIME ORAL 12/23/18 21:00 12/30/18 20:59 12/24/18 20:57 Magnesium Hydroxide (Mom) 30 ml QIDPRN PRN ORAL Constipation 12/21/18 18:00 01/20/19 17:59 Morphine Sulfate (Morphine Sulfate) 4 mg Q3H PRN IM Severe Pain (Pain Scale 7-10) 12/22/18 10:30 12/29/18 10:29 12/23/18 23:02 Ondansetron HCl (Zofran) 4 mg Q4H PRN IVP Nausea & Vomiting 12/22/18 09:00 01/21/19 08:59 Oxycodone HCl (Roxicodone) 10 mg Q4H PRN ORAL Mild Pain (Pain Scale 1-3) 12/22/18 09:00 12/29/18 08:59 Oxycodone HCl (Roxicodone) 15 mg Q3H PRN ORAL Moderate Breakthru Pain (5-7) 12/22/18 09:00 12/29/18 08:59 12/24/18 13:35 Patient Own Medication (Patient's Own Med) 1 ea QHS ORAL 12/22/18 21:00 01/21/19 20:59 UNV Polyethylene Glycol (Miralax) 17 gm HSPRN PRN ORAL Constipation 12/21/18 00:00 01/20/19 00:00 Pregabalin (Lyrica) 25 mg BID ORAL 12/22/18 18:00 01/21/19 17:59 12/24/18 18:20 Tamsulosin HCl (Flomax) 0.4 mg BEDTIME ORAL 12/23/18 21:00 01/22/19 20:59 12/24/18 20:57 Temazepam (Restoril) 15 mg HSPRN PRN ORAL Insomnia 12/21/18 18:00 12/28/18 17:59 12/24/18 23:13 Paco Vanegas MD Dec 25, 2018 12:08
--- NOTE | 2018-12-25 12:23 | NUR ---
DISCHARGE PLAN PATIENT HAS BEEN REFERRED TO [facility] T: [phone] F: [phone] REFERRED FOR PHYSICAL THERAPY
--- NOTE | 2018-12-25 12:30 | NUR ---
NURSE NOTES:VOIDED 120 CC,PVR SHOWS 760,STILL REFUSING FOR VAUGHN CATH.AT 1300 HE VOIDED 350 CC,NO C/O PAIN OR DISCOMFORT.ENCOURAGED FOR ADEQUATE INTAKE.
--- NOTE | 2018-12-25 12:49 | Orthopedic Spine Progress Note ---
Ortho Spine - Progress Note Subjective Symptoms: c/o post-op back pain, improved - as compared to pre-op Additional Comments: urinary retention Objective Vital Signs: Last 24 Hour Vital Signs Date Time Temp Pulse Resp B/P (MAP) Pulse Ox O2 Delivery O2 Flow Rate FiO2 12/25/18 12:00 98.3 91 19 142/99 (113) 99 12/25/18 07:51 97.9 87 18 134/78 (96) 98 12/25/18 07:35 Room Air 12/25/18 07:35 Room Air 12/25/18 05:04 97.8 76 18 124/80 (95) 99 12/25/18 00:00 97.6 68 18 134/86 (102) 95 12/24/18 21:00 Room Air 12/24/18 20:00 98.3 79 18 133/84 (100) 97 12/24/18 16:00 97.7 82 20 133/90 (104) 94 I&O: Intake and Output 12/24/18 12/25/18 19:00 07:00 Intake Total 200 ml 1955 ml Output Total 2200 ml 3000 ml Balance -2000 ml -1045 ml Intake Oral 200 ml 1900 ml IV Total 55 ml Output Urine Total 2200 ml 3000 ml Wound: clean, intact Drains: none Neuro Status: stable Assessment Procedure Performed: T10 to L3 PSF, vert augmentation T10, 11, L1 and L2, Laminectomy/tumor resection T11, T12 and pediclectomy and vertebrectomy R t12 Plan Plan: PT, pain management, discharge plan Additional Comments: likely needs to learn self cath prior to dc. Pt approved for aru, but prefers to go home with home health and PT Harshad Abrams MD Dec 25, 2018 12:49
--- NOTE | 2018-12-25 14:55 | NUR ---
HOME HEALTH UPDATE PATIENT HAS BEEN REFERRED TO THE FOLLOWING [facility] ~ONLY TAKE SHIFT CASES [facility] ~ NO NURSES TO SERVICE [facility] ~ NO LONGER HAVE CONTRACT WITH [facility] ~ NO STAFF FOR [facility] ~ DOESN'T SERVE [id number] AREA Addendum: 12/25/18 at 1525 by WESLEY LOZA CM REFERRAL SENT TO: [facility] P:[phone] F:[phone] Addendum: 12/25/18 at 1535 by LIZZETH GARCIA LVN LVN REFERRED TO [facility] T: [phone] BOTH [facility] AND [facility] ARE CONSIDERING TAKING PATIENT WAITING FOR BOTH OF THEM TO LET US KNOW IF THEY CAN ACCEPT PATIENT
--- NOTE | 2018-12-25 14:55 | NUR ---
NURSE NOTES: AND DR. LANDRUM NOTIFIED RE:DISCHARGE PENDING TODAY BECAUSE OF HOME HEALTH ISSUE,PER CONVERSATION WITH LIZZETH(PRANAV)SHE CONTACTED [facility] HOME HEALTH ALREADY BUT UNSUCCESSFUL,HER RECOMMENDATION WAS TO HAVE THE PATIENT STAY OVERNIGHT AND HAVE AT LEAST SELF CATH.WITH RN SUPERVISION AND SHE WILL KEEP TRYING TO LOOK FOR HOME HEALTH.BOTH DRSTeofilo ARE INFORMED ABOUT THE RECOMMENDATION AND THEY AGREED.DISCUSSED PLANS WITH PATIENT AND VERBALIZED WITH UNDERSTANDING.HE IS WILLING TO STAY OVERNIGHT.CHARGE NURSE(MICHAEL RN)INFORMED.
--- NOTE | 2018-12-25 15:00 | NUR ---
NURSE NOTES:VOIDED 500CC,BLADDER SCAN DONE WITH 554 CC,IN AND OUT CATH DONE AT BEDSIDE AND EDUCATION PACKET WAS PROVIDED.PATIENT VERBALIZED WITH UNDERSTANDING.
--- NOTE | 2018-12-25 15:54 | NUR ---
DISCHARGE PLAN [facility] T: [phone] F: [phone] [employer] [employer] [facility] ~ SEP PLAN IS TO DISCHARGE PATIENT HOME TOMORROW AM
[2018-12-25 16:00] VITALS: BP 131/83
--- NOTE | 2018-12-25 16:02 | NUR ---
CASE MANAGEMENT:REVIEW 12/25/18 SI: POD #4 MULTIPLE MYELOMA W/MET TO VERTEBRAE &SPINAL COMPRESSION 97.2 71 18 147/80 98% ON RA H/H-9.3/26.2 IS: IV CEFEPIME Q12 ATIVAN PO QHS FLOMAX PO QHS LYRICA PO BID DECADRON PO QID MORPHINE IM Q3HRS PRN : MED/SURG STATUS 3 EAST PLAN: PLAN WAS TO DISCHARGE HOME TODAY. SINCE PATIENT WAS HAVING PROBLEMS VOIDING HE NEEDED TO BE INSTRUCTED ON HOW TO SELF CATHETERIZE THUS DISCHARGE WAS HELD UNTIL TOMORROW WILL GO HOME WITH [facility]
--- NOTE | 2018-12-25 17:42 | Internal Med Progress Note ---
Subjective Date of Service: Dec 25, 2018 Physician Name Maged Shaver Attending Physician Uriah Neves MD Current Medications Medications (Trade) Dose Ordered Sig/Stephane Route PRN Reason Start Time Stop Time Status Last Admin Dose Admin Acetaminophen (Tylenol) 650 mg Q4H PRN ORAL headache or temp>101 12/21/18 18:00 01/20/19 17:59 Al Hydroxide/Mg Hydroxide (Mylanta II) 30 ml Q6H PRN ORAL dyspepsia 12/21/18 00:00 01/20/19 00:00 Allopurinol (Allopurinol) 300 mg DAILY ORAL 12/21/18 09:00 01/20/19 08:59 12/25/18 08:15 Dexamethasone (Decadron) 8 mg QID ORAL 12/21/18 09:00 01/20/19 08:59 12/25/18 13:33 Dextrose (Dextrose 50%) 25 ml Q30M PRN IV Hypoglycemia 12/21/18 00:00 01/20/19 00:00 Dextrose (Dextrose 50%) 50 ml Q30M PRN IV Hypoglycemia 12/21/18 00:00 01/20/19 00:00 Diphenhydramine HCl (Benadryl) 25 mg Q6H PRN ORAL Itching 12/22/18 09:00 01/21/19 08:59 Docusate Sodium (Colace) 100 mg TWICE A DAY ORAL 12/21/18 18:00 01/20/19 17:59 12/25/18 17:31 Famotidine (Pepcid) 20 mg BID ORAL 12/22/18 09:00 01/21/19 08:59 12/25/18 17:31 Lorazepam (Ativan) 1 mg BEDTIME ORAL 12/23/18 21:00 12/30/18 20:59 12/24/18 20:57 Magnesium Hydroxide (Mom) 30 ml QIDPRN PRN ORAL Constipation 12/21/18 18:00 01/20/19 17:59 Morphine Sulfate (Morphine Sulfate) 4 mg Q3H PRN IM Severe Pain (Pain Scale 7-10) 12/22/18 10:30 12/29/18 10:29 12/23/18 23:02 Ondansetron HCl (Zofran) 4 mg Q4H PRN IVP Nausea & Vomiting 12/22/18 09:00 01/21/19 08:59 Oxycodone HCl (Roxicodone) 10 mg Q4H PRN ORAL Mild Pain (Pain Scale 1-3) 12/22/18 09:00 12/29/18 08:59 Oxycodone HCl (Roxicodone) 15 mg Q3H PRN ORAL Moderate Breakthru Pain (5-7) 12/22/18 09:00 12/29/18 08:59 12/24/18 13:35 Patient Own Medication (Patient's Own Med) 1 ea QHS ORAL 12/22/18 21:00 01/21/19 20:59 UNV Polyethylene Glycol (Miralax) 17 gm HSPRN PRN ORAL Constipation 12/21/18 00:00 01/20/19 00:00 Pregabalin (Lyrica) 25 mg BID ORAL 12/22/18 18:00 01/21/19 17:59 12/24/18 18:20 Tamsulosin HCl (Flomax) 0.4 mg BEDTIME ORAL 12/23/18 21:00 01/22/19 20:59 12/24/18 20:57 Temazepam (Restoril) 15 mg HSPRN PRN ORAL Insomnia 12/21/18 18:00 12/28/18 17:59 12/24/18 23:13 Allergies: Coded Allergies: LATEX (Verified Allergy, Unknown, 12/20/18) ROS Limited/Unobtainable: No Constitutional: Reports: no symptoms HEENT: Reports: no symptoms Cardiovascular: Reports: no symptoms Respiratory: Reports: no symptoms Gastrointestinal/Abdominal: Reports: no symptoms Genitourinary: Reports: no symptoms Neurologic/Psychiatric: Reports: no symptoms Subjective 53 YO M admitted with multiple myeloma and T11-T12 tumor. S/P posterior fusion T10-L3 , laminectomy and tumor resection on 12/21/18. Cover for Int Med-Dr Neves. Discharge held due to voiding difficulty Objective Last Vital Signs Date Time Temp Pulse Resp B/P (MAP) Pulse Ox O2 Delivery O2 Flow Rate FiO2 12/25/18 16:00 98.3 82 19 131/83 (99) 99 12/25/18 07:35 Room Air 12/21/18 21:00 2.0 Laboratory Tests Test 12/25/18 05:05 White Blood Count 11.2 K/UL (4.8-10.8) H Red Blood Count 2.78 M/UL (4.70-6.10) L Hemoglobin 9.2 G/DL (14.2-18.0) L Hematocrit 26.4 % (42.0-52.0) L Mean Corpuscular Volume 95 FL (80-99) Mean Corpuscular Hemoglobin 32.9 PG (27.0-31.0) H Mean Corpuscular Hemoglobin Concent 34.7 G/DL (32.0-36.0) Red Cell Distribution Width 11.8 % (11.6-14.8) Platelet Count 222 K/UL (150-450) Mean Platelet Volume 6.5 FL (6.5-10.1) Neutrophils (%) (Auto) % (45.0-75.0) Lymphocytes (%) (Auto) % (20.0-45.0) Monocytes (%) (Auto) % (1.0-10.0) Eosinophils (%) (Auto) % (0.0-3.0) Basophils (%) (Auto) % (0.0-2.0) Differential Total Cells Counted 100 Neutrophils % (Manual) 87 % (45-75) H Lymphocytes % (Manual) 8 % (20-45) L Monocytes % (Manual) 5 % (1-10) Eosinophils % (Manual) 0 % (0-3) Basophils % (Manual) 0 % (0-2) Band Neutrophils 0 % (0-8) Platelet Estimate Adequate Platelet Morphology Normal Hypochromasia 2+ Anisocytosis 1+ Sodium Level 135 MMOL/L (136-145) L Potassium Level 3.8 MMOL/L (3.5-5.1) Chloride Level 98 MMOL/L (98-107) Carbon Dioxide Level 28 MMOL/L (21-32) Anion Gap 9 mmol/L (5-15) Blood Urea Nitrogen 23 mg/dL (7-18) H Creatinine 0.8 MG/DL (0.55-1.30) Estimat Glomerular Filtration Rate > 60 mL/min (>60) Glucose Level 120 MG/DL (74-106) H Calcium Level 8.9 MG/DL (8.5-10.1) Microbiology Date/Time Source Procedure Growth Status 12/22/18 19:52 Blood Blood Culture - Preliminary NO GROWTH AFTER 48 HOURS Resulted 12/22/18 19:10 Blood Blood Culture - Preliminary NO GROWTH AFTER 48 HOURS Resulted Intake and Output 12/24/18 12/25/18 19:00 07:00 Intake Total 200 ml 1955 ml Output Total 2200 ml 3000 ml Balance -2000 ml -1045 ml Intake Oral 200 ml 1900 ml IV Total 55 ml Output Urine Total 2200 ml 3000 ml Objective Objective General: No acute distress, awake and alert HEENT: NCAT, sclera anicteric, PERRL, EOMI. Neck: Supple, no significant jugular venous distention, Lungs: Good inspiratory effort,, no Wheeze or Rales. Heart: Regular rate and rhythm, normal S1/S2, no murmurs. Abdomen: soft, nontender, nondistended. Normoactive bowel sounds. Back: surgical incision intact dressing. Extremities: No Cyanosis , clubbing or edema. Neuro: A&O x 3, Able to move all extremities Skin: warm, no rashes or lesions Psych: Normal mood and affect Assessment/Plan Assessment/Plan Assessment/Plan Assessment/Plan (1) Metastatic multiple myeloma to bone ICD Codes: C90.00 - Multiple myeloma not having achieved remission SNOMED: 213856556 (2) Multiple myeloma ICD Codes: C90.00 - Multiple myeloma not having achieved remission SNOMED: 178846877 (3) Loss of Bowel and bladder function most likely due to cord compression with T11-12, paraparesis S/P T10 to L3 PSF, vert augmentation T10, 11, L1 and L2, Laminectomy/tumor resection T11, T12 and pediclectomy and vertebrectomy R t12 (12/21/2018). 4. Hyponatremia Plan: Follow-up with the spine surgery recommendation Dr. Harshad Grewal. DVT prophylaxis with SCD. CODE STATUS is full code. PT mobility in the morning. Discussed with the family member extensively at the bedside with regard to the care will be provided. S/P T10-L3 POSTERIOR SPINAL FUSION, LAMINECTOMY AND T-11-12 TUMOR RESECTION ON CONTINUE IV NS Discharge Plan: home with [facility]. Maged Shaver MD Dec 25, 2018 17:42
--- NOTE | 2018-12-25 18:45 | NUR ---
NURSE NOTES: CALLED UPDATED RE:PATIENTS URINE OUTPUT.
--- NOTE | 2018-12-25 19:35 | NUR ---
NURSE NOTES: Initial rounding done, pt resting in bed. speaking to Dr. Glover at this time. Will follow up order for Venous Doppler of bilateral lower extremities. denies pain at this time. Call light within reach.
--- NOTE | 2018-12-25 19:47 | NUR ---
HAND-OFF: Report given to KELLEY ZAIDI.PATIENT STABLE.
[2018-12-25 20:00] VITALS: BP 140/92
[2018-12-25] MEDS: Tamsulosin 0.4mg cap ORAL SCH (21:10)
[2018-12-25] MEDS: LORazepam 1mg tab ORAL SCH (21:10)
--- NOTE | 2018-12-25 22:00 | NUR ---
NURSE NOTES: Pt voided to urinal only 100 ml output, bladder scanned 900 ml, PVR 775 ml with straight catheterization. Teach pt how to do self in & out catheterization for urinary retention, prep and initiated the cath then patient proceed with sterile technique. Pt demonstrated proper technique. Pt tolerated the procedure well.
[2018-12-26] VITALS: BP 127/79
--- NOTE | 2018-12-26 01:00 | Progress Note ---
DATE: 12/25/2018 ACUTE PAIN MANAGEMENT PHYSICIAN PROGRESS NOTE MEDICATIONS: Medication administration record reviewed. Medications include Tylenol, Mylanta, allopurinol, Decadron, Benadryl, Colace, Pepcid, Ativan, milk of magnesia, morphine, Zofran, oxycodone, MiraLAX, Lyrica, Flomax, and Restoril. LABORATORY DATA: Laboratory studies from this morning, 12/25/2018 shows white count 11, hematocrit 26, hemoglobin 9.2, and platelets 222,000. Chemistry shows sodium 135, potassium 3.8, chloride 98, bicarbonate 28, BUN 23, creatinine 0.8, glucose 120, and calcium 8.9. OBJECTIVE: Afebrile, pulse 82, respirations 19, blood pressure 131/83, and pulse oximetry 99 percent. I saw the patient at the bedside with the nurse RN, Love. The patient has been doing relatively well postoperatively. His discharge delay has been due to urinary retention. This situation is not completely unexpected as Dr. Abrams was fearful of neurologic bladder dysfunction due to his multiple myeloma and preoperative symptoms. Dr. Rocha consultation has been much appreciated and is monitoring closely. The patient has been started on straight catheterization training and teaching, with hopefully discharge planning in the next 24 hours. From a pain management perspective, the patient's incisional pain has mostly resolved. His requirements for opioid narcotics have dropped considerably. He is tolerating oxycodone 15 mg well without side effects, and has not required breakthrough morphine injections for nearly 24 hours. I did refill the patient's prescription for oxycodone instant release for outpatient usage, which the patient's oncologist will adjust the dosage of and refilled as necessary. Kingston Jacobo M.D. DR: OWEN JOB#: [id number] CC:
[2018-12-26 04:00] VITALS: BP 115/71
--- NOTE | 2018-12-26 04:00 | Consultation ---
DATE OF CONSULTATION: 12/25/2018 NOTE: POOR AUDIO HEMATOLOGY/ONCOLOGY CONSULTATION CONSULTING PHYSICIAN: Beth Glover M.D. REFERRING PHYSICIAN: Harshad Harry M.D. REASON FOR CONSULTATION: Multiple myeloma with cord compression. 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 The patient has had a history of multiple myeloma that is diagnosed approximately a year ago. On broad-spectrum chemotherapeutic agents under the care of Dr. Abrams. The patient has approximately 1 month history of worsening back pain. Over the past few days prior to this hospitalization, the patient has had lower extremity weakness. On the day prior, the patient was barely able to stand. The patient has been evaluated by Dr. Abrams and has been admitted to the hospital status post multi-level lumbar spine surgeries. The patient currently is able to ambulate. His bowel and bladder has significantly improved. The patient continues to have need for intermittent catheterization. PAST MEDICAL HISTORY: Acute postoperative lumbar spine pain, history of multiple myeloma status post cord compression status post surgery, history of multiple chemotherapy interventions, and history of gout. PAST SURGICAL HISTORY: As noted above. ALLERGIES: Per electronic medical records. MEDICATIONS: Per electronic medical records. SOCIAL HISTORY: The patient is . He has a 15-year-old child at home. 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 No tobacco. The patient does drink alcohol socially. FAMILY HISTORY: The patient denies any cancer in the family. REVIEW OF SYSTEMS: CONSTITUTIONAL: The patient denies any headaches. PULMONARY: Denies shortness of breath. CARDIAC: Denies chest pain. NEUROLOGIC: Nonfocal. extremities. The patient does complain of some lower extremity weakness. GENITOURINARY: The patient does require intermittent catheterization. PHYSICAL EXAMINATION: VITAL SIGNS: The patient's vitals are stable. Temperature 98.3, pulse 82, breathing at 20, and blood pressure 131/83. CHEST: . CARDIOVASCULAR: Regular rhythm. S1 and S2. ABDOMEN: Soft and nontender. EXTREMITIES: There is no cyanosis or clubbing. There is edema, more on the right than the left. NEUROLOGIC: The patient lower extremity weakness. LABORATORY DATA: Noted. Includes a white count of 11.2, hemoglobin 9.2, and platelet count 122,000. Sodium 135, potassium is 3.8, and creatinine 0.8. ASSESSMENT AND PLAN: 1. Multiple myeloma status post multiple lines of chemotherapy currently with cord compression. Plan is for the patient to proceed with physical therapy. The patient is currently neurologically intact. 2. Transaminitis noted. The patient has a deferred to primary team. 3. Lower extremity edema. Trace to prior to discharge. Rule out DVT. 4. Low TSH of 0.229. Followup with primary team. Beth Glover M.D. DR: ALDAIR JOB#: [id number] CC:
--- NOTE | 2018-12-26 07:32 | NUR ---
HAND-OFF: Report given to DYAN Conroy.
--- NOTE | 2018-12-26 07:56 | Urology Progress Note ---
Assessment/Plan Assessment/Plan 1. Lower urinary tract symptoms and incontinence hx. 2. Probable neurogenic bladder. 3. BPH. 4. Urinary retention. monitor clinically balderas out and voiding a bit, high PVR pt now doing self cath flomax added, consider increasing dose to BID will also add urecholine ambulate minimize narcotics pt to cont with self cath PRN for now monitor for voiding plan is to go home today outpt f/u, cysto and TRUS d/w pt fully d/w nursing staff Subjective Allergies: Coded Allergies: LATEX (Verified Allergy, Unknown, 12/20/18) Subjective all noted, feels fair, balderas removed yest, voided some but still with high residuals, doing IC, pt learning to self cath Objective Last 24 Hour Vital Signs Date Time Temp Pulse Resp B/P (MAP) Pulse Ox O2 Delivery O2 Flow Rate FiO2 12/26/18 04:00 97.1 69 18 115/71 (86) 97 12/26/18 00:00 97.9 83 18 127/79 (95) 98 12/25/18 21:00 Room Air 12/25/18 20:00 98.1 93 18 140/92 (108) 97 12/25/18 16:00 98.3 82 19 131/83 (99) 99 12/25/18 12:00 98.3 91 19 142/99 (113) 99 Intake and Output 12/25/18 12/26/18 19:00 07:00 Intake Total 1040 ml 240 ml Output Total 1580 ml 1675 ml Balance -540 ml -1435 ml Intake Oral 1040 ml 240 ml Output Urine Total 1580 ml 1500 ml Other 175 ml # Voids 4 1 Microbiology Date/Time Source Procedure Growth Status 12/22/18 19:52 Blood Blood Culture - Preliminary NO GROWTH AFTER 72 HOURS Resulted Current Medications Medications (Trade) Dose Ordered Sig/Stephane Route PRN Reason Start Time Stop Time Status Last Admin Dose Admin Acetaminophen (Tylenol) 650 mg Q4H PRN ORAL headache or temp>101 12/21/18 18:00 01/20/19 17:59 Al Hydroxide/Mg Hydroxide (Mylanta II) 30 ml Q6H PRN ORAL dyspepsia 12/21/18 00:00 01/20/19 00:00 Allopurinol (Allopurinol) 300 mg DAILY ORAL 12/21/18 09:00 01/20/19 08:59 4/9/19 08:15 Dexamethasone (Decadron) 8 mg QID ORAL 12/21/18 09:00 01/20/19 08:59 12/25/18 21:10 Dextrose (Dextrose 50%) 25 ml Q30M PRN IV Hypoglycemia 12/21/18 00:00 01/20/19 00:00 Dextrose (Dextrose 50%) 50 ml Q30M PRN IV Hypoglycemia 12/21/18 00:00 01/20/19 00:00 Diphenhydramine HCl (Benadryl) 25 mg Q6H PRN ORAL Itching 12/22/18 09:00 01/21/19 08:59 Docusate Sodium (Colace) 100 mg TWICE A DAY ORAL 12/21/18 18:00 01/20/19 17:59 12/25/18 17:31 Famotidine (Pepcid) 20 mg BID ORAL 12/22/18 09:00 01/21/19 08:59 12/25/18 17:31 Lorazepam (Ativan) 1 mg BEDTIME ORAL 12/23/18 21:00 12/30/18 20:59 12/25/18 21:10 Magnesium Hydroxide (Mom) 30 ml QIDPRN PRN ORAL Constipation 12/21/18 18:00 01/20/19 17:59 Morphine Sulfate (Morphine Sulfate) 4 mg Q3H PRN IM Severe Pain (Pain Scale 7-10) 12/22/18 10:30 12/29/18 10:29 12/23/18 23:02 Ondansetron HCl (Zofran) 4 mg Q4H PRN IVP Nausea & Vomiting 12/22/18 09:00 01/21/19 08:59 Oxycodone HCl (Roxicodone) 10 mg Q4H PRN ORAL Mild Pain (Pain Scale 1-3) 12/22/18 09:00 12/29/18 08:59 Oxycodone HCl (Roxicodone) 15 mg Q3H PRN ORAL Moderate Breakthru Pain (5-7) 12/22/18 09:00 12/29/18 08:59 12/24/18 13:35 Patient Own Medication (Patient's Own Med) 1 ea QHS ORAL 12/22/18 21:00 01/21/19 20:59 UNV Polyethylene Glycol (Miralax) 17 gm HSPRN PRN ORAL Constipation 12/21/18 00:00 01/20/19 00:00 Pregabalin (Lyrica) 25 mg DAILY ORAL 12/26/18 09:00 01/25/19 08:59 Tamsulosin HCl (Flomax) 0.4 mg BEDTIME ORAL 12/23/18 21:00 01/22/19 20:59 12/25/18 21:10 Temazepam (Restoril) 30 mg HSPRN PRN ORAL Insomnia 12/25/18 22:45 01/01/19 22:44 12/25/18 23:07 Height (Feet): 5 Height (Inches): 0.90 Weight (Pounds): 185 Objective exam stable balderas indwelling, grossly yellow urine Lb Rocha MD Dec 26, 2018 07:56
[2018-12-26 08:00] VITALS: BP 134/84
--- NOTE | 2018-12-26 08:24 | NUR ---
NURSE NOTES: AWAKE/ALERT. NO C/O PAIN. IN NO DISTRESS.
[2018-12-26] MEDS: Docusate 100mg cap ORAL SCH (08:31)
--- NOTE | 2018-12-26 08:51 | Orthopedic Spine Progress Note ---
Ortho Spine - Progress Note Subjective Symptoms: c/o post-op back pain, improved - as compared to pre-op Objective Vital Signs: Last 24 Hour Vital Signs Date Time Temp Pulse Resp B/P (MAP) Pulse Ox O2 Delivery O2 Flow Rate FiO2 12/26/18 04:00 97.1 69 18 115/71 (86) 97 12/26/18 00:00 97.9 83 18 127/79 (95) 98 12/25/18 21:00 Room Air 12/25/18 20:00 98.1 93 18 140/92 (108) 97 12/25/18 16:00 98.3 82 19 131/83 (99) 99 12/25/18 12:00 98.3 91 19 142/99 (113) 99 I&O: Intake and Output 12/25/18 12/26/18 19:00 07:00 Intake Total 1040 ml 240 ml Output Total 1580 ml 1675 ml Balance -540 ml -1435 ml Intake Oral 1040 ml 240 ml Output Urine Total 1580 ml 1500 ml Other 175 ml # Voids 4 1 Neuro Status: stable Assessment Procedure Performed: T10 to L3 PSF, vert augmentation T10, 11, L1 and L2, Laminectomy/tumor resection T11, T12 and pediclectomy and vertebrectomy R t12 Plan Plan: PT, discharge plan Additional Comments: needs self cath for urinary retention Harshad Abrams MD Dec 26, 2018 08:51
[2018-12-26] MEDS ORDERED: Lyrica 25mg cap ORAL SCH (09:00)
[2018-12-26] MEDS ORDERED: Bethanechol 25mg Tab ORAL SCH (09:00)
[2018-12-26] MEDS ORDERED: Bethanechol 25mg Tab ONE (09:03)
--- NOTE | 2018-12-26 09:13 | NUR ---
PT NOTE: Pt is being discharged today and refused PT treatment today. States feeling confident in ability to perform functional ADLs. Pt educated on the importance of performing therapeutic exercises to improve muscular endurance. Pt had no further questions and is ready to go home. Notified nurse of pt status. Left nurse call light within easy reach.
[2018-12-26] MEDS ORDERED: OXYCODONE HCL5 MG ORAL (09:34)
--- NOTE | 2018-12-26 10:15 | Infectious Diseases Prog Note ---
Assessment/Plan Assessment/Plan Abx: Ancef 12/21- IV Vancomycin x1 12/21 Assessment: Leukocytosis may a have been reactive No infection found Patient stable off abx UA (-) Blood Cx 12/22/18 - NGTD CXR: no acute disease Low grade fever - Resolved Leukocytosis- Resolved -CXR: no acute disease Multiple myeloma previously on remission and recently found recurrence w/ multiple metastases to thoracic and lumbar spine currently on chemotherapy( started on 12/13) and decadron -12/21 SP T10-12, L1-L3 posterior spinal fusion, Laminectomy and resection of tumor T11 and T12 on the right side and T12 pediclectomy and vertebrectomy on 12/21 -MRI Lumbar spine: : Extensive T12 lesion, also described on separate thoracic spine MRI report, resulting in compression of the distal cord, conus medullaris, and proximal cauda equina as well as a T12 pathologic compression fracture. Other lesions, presumably disseminated multiple myeloma given stated clinical history, within T11, L1, L2, the sacrum, and bilateral iliac bones. No evidence of neural compromise or pathologic fracture related to such. Distended bladder -MRI Thoracic spine: Extensive tumor involving the T12 vertebral body, with invasion of the spinal canal, evidence of distal cord/conus medullaris/ proximal cauda equina compression, as well as a pathologic T12 compression fracture. Evidence of a slight degree of myelomalacia as a result. Multiple other deposits of tumor as detailed on a level by level basis above. Note that there is minimal spinal canal invasion by the T10-11 lesion. Findings most likely represent myelomatous deposits, given stated clinical history of multiple myeloma. BPH neurogenic bladder Plan: - Monitor off abx - 12/25/18 s/p Cefepime #3 - short course for possible UTI -Monitor CBC/CMP, temperatures -wound care per surgical team -aspiration precautions Will continue to follow along with you. Subjective Allergies: Coded Allergies: LATEX (Verified Allergy, Unknown, 12/20/18) Subjective Afebrile No new labs today BRIEN Objective Vital Signs Last 24 Hour Vital Signs Date Time Temp Pulse Resp B/P (MAP) Pulse Ox O2 Delivery O2 Flow Rate FiO2 12/26/18 09:06 97.1 12/26/18 08:00 97.5 86 21 134/84 (101) 99 12/26/18 04:00 97.1 69 18 115/71 (86) 97 12/26/18 00:00 97.9 83 18 127/79 (95) 98 12/25/18 21:00 Room Air 12/25/18 20:00 98.1 93 18 140/92 (108) 97 12/25/18 16:00 98.3 82 19 131/83 (99) 99 12/25/18 12:00 98.3 91 19 142/99 (113) 99 Height (Feet): 5 Height (Inches): 0.90 Weight (Pounds): 185 Objective GENERAL: NAD HEENT: NCAT, MMM, EOMI LUNG: CTAB, No W HEART: RRR, S1, S2 ABDOMEN: Soft. NT, ND Current Medications Medications (Trade) Dose Ordered Sig/Stephane Route PRN Reason Start Time Stop Time Status Last Admin Dose Admin Acetaminophen (Tylenol) 650 mg Q4H PRN ORAL headache or temp>101 12/21/18 18:00 01/20/19 17:59 Al Hydroxide/Mg Hydroxide (Mylanta II) 30 ml Q6H PRN ORAL dyspepsia 12/21/18 00:00 01/20/19 00:00 Allopurinol (Allopurinol) 300 mg DAILY ORAL 12/21/18 09:00 01/20/19 08:59 12/26/18 08:31 Bethanechol Chloride (Urecholine) 25 mg THREE TIMES A DAY ORAL 12/26/18 09:00 01/25/19 08:59 12/26/18 09:05 Dexamethasone (Decadron) 8 mg QID ORAL 12/21/18 09:00 01/20/19 08:59 12/26/18 09:05 Dextrose (Dextrose 50%) 25 ml Q30M PRN IV Hypoglycemia 12/21/18 00:00 01/20/19 00:00 Dextrose (Dextrose 50%) 50 ml Q30M PRN IV Hypoglycemia 12/21/18 00:00 01/20/19 00:00 Diphenhydramine HCl (Benadryl) 25 mg Q6H PRN ORAL Itching 12/22/18 09:00 01/21/19 08:59 Docusate Sodium (Colace) 100 mg TWICE A DAY ORAL 12/21/18 18:00 01/20/19 17:59 12/26/18 08:31 Famotidine (Pepcid) 20 mg BID ORAL 12/22/18 09:00 01/21/19 08:59 12/26/18 08:31 Lorazepam (Ativan) 1 mg BEDTIME ORAL 12/23/18 21:00 12/30/18 20:59 12/25/18 21:10 Magnesium Hydroxide (Mom) 30 ml QIDPRN PRN ORAL Constipation 12/21/18 18:00 01/20/19 17:59 Morphine Sulfate (Morphine Sulfate) 4 mg Q3H PRN IM Severe Pain (Pain Scale 7-10) 12/22/18 10:30 12/29/18 10:29 12/23/18 23:02 Ondansetron HCl (Zofran) 4 mg Q4H PRN IVP Nausea & Vomiting 12/22/18 09:00 01/21/19 08:59 Oxycodone HCl (Roxicodone) 10 mg Q4H PRN ORAL Mild Pain (Pain Scale 1-3) 12/22/18 09:00 12/29/18 08:59 Oxycodone HCl (Roxicodone) 15 mg Q3H PRN ORAL Moderate Breakthru Pain (5-7) 12/22/18 09:00 12/29/18 08:59 12/24/18 13:35 Patient Own Medication (Patient's Own Med) 1 ea QHS ORAL 12/22/18 21:00 01/21/19 20:59 UNV Polyethylene Glycol (Miralax) 17 gm HSPRN PRN ORAL Constipation 12/21/18 00:00 01/20/19 00:00 Pregabalin (Lyrica) 25 mg DAILY ORAL 12/26/18 09:00 01/25/19 08:59 12/26/18 08:31 Tamsulosin HCl (Flomax) 0.4 mg BEDTIME ORAL 12/23/18 21:00 01/22/19 20:59 12/25/18 21:10 Temazepam (Restoril) 30 mg HSPRN PRN ORAL Insomnia 12/25/18 22:45 01/01/19 22:44 12/25/18 23:07 Kingston Muhammad MD Dec 26, 2018 10:15
--- NOTE | 2018-12-26 10:17 | NUR ---
DISCHARGE PLAN PATIENT IS DISCHARGING HOME TODAY HOME HEALTH HAS BEEN ARRANGED [facility] T: [phone] F: [phone] PATIENT USES 14FR CATH HOME HEALTH IS FOR PT AND REINFORCE SELF CATHETERIZATION
--- NOTE | 2018-12-26 10:28 | NUR ---
NURSE NOTES: discharged home per wheelchair accpd by sister in stable condition. dc instructions given.
[2018-12-26] MEDS ORDERED: URECHOLINE25 M1 ORAL (17:52)
[2018-12-26] MEDS ORDERED: FLOMAX0.4 MG ORAL (17:53)
--- NOTE | 2018-12-26 23:30 | Progress Note ---
DATE: 12/26/2018 ACUTE PAIN MANAGEMENT PHYSICIAN PROGRESS NOTE MEDICATIONS: Medication administration record reviewed. Medications include Valtrex, Lyrica, Colace, Ativan, Flomax, Pepcid, allopurinol, urecholine, and Decadron. P.r.n. medications include Mylanta, MiraLAX, Restoril, Tylenol, milk of magnesia, Benadryl, oxycodone, Zofran, morphine, and Restoril. LABORATORY STUDIES: No interval laboratory studies. OBJECTIVE: Vital signs within normal limits. Afebrile. Pulse 86, respirations 21, blood pressure 134/84, and oxygen saturation 99% on room air. I spoke with the charge nurse, Belkis ZAIDI and the nurse. The patient continued to do well with improved pain and increased ambulation. Dr. Abrams recommended discharge trial home today and I did leave a prescription with the patient for oxycodone instant release for home usage. Kingston Jacobo M.D. DR: OWEN JOB#: [id number] CC:
--- NOTE | 2018-12-27 12:35 | Discharge Summary ---
Discharge Summary Discharge Summary _ DATE OF ADMISSION: 12/20/2018 DATE OF DISCHARGE: 12/26/2018 ADMITTING MD: Dr. Uriah Neves DISCHARGED BY: Dr. Paco Vanegas CONSULTANTS: Dr. Paco Glover [facility] HOSPITAL COURSE: Patient is a 53-year-old male with history of multiple myeloma, status post chemotherapy and Decadron, presented to ER with chief complaint of loss of bladder control. He recently had an MRI of the spine showed presumably disseminated multiple myeloma with in T11, L1, L2, sacrum and bilateral iliac bones. He had spoken to his back specialist and was advised to go to emergency room if there was any change in urinary symptoms. He reported that on the day of admission, he wanted to go to the restroom and had loss of urination. He had difficulty with ambulation and had pain in the lower extremities for several months. He denied any fever or chills. On evaluation at ED, vital signs were stable. Imaging was obtained. Blood work showed WBC of 17. Hemoglobin 11, hematocrit 32. Electrolytes were normal. CT of the thoracic spine was positive for soft tissue mass involving the T12 vertebral body, posterior elements and adjacent spinal canal as well as significant extraspinal involvement. Spinal cord compression possible. There was mild compression fracture deformity as well as presumably pathologic compression fracture, age indeterminate. A thoracic MRI was then done and showed extensive tumor involving the T12 vertebral body, with invasion of the spinal canal, evidence of distal cord/conus medullaris/proximal cauda equina compression as well as pathologic T12 compression fracture. MRI of the lumbar spine showed extensive T12 lesion, resulting in compression of the distal cord, conus medullaris and proximal cauda equina as well as T12 pathologic compression fracture. He was then admitted for orthopedic evaluation and management due to loss of bladder control and progressive paraparesis. Orthopedic evaluation was done. Patient was noted to have progressive neurologic deterioration, with weakness in lower extremities and loss in bladder control. Surgical intervention was recommended. On 12/21/2018, patient underwent T10-T11, T12, L1, L2, and L3 posterior spinal fusion. There was severe spinal cord compression with decompression achieved through a right-sided approach at T11-T12. A Hemovac drain was left in place. He tolerated procedure well. Urologist was consulted. Patient has presumably combination of BPH and probable neurogenic bladder due to cord compression. Bragg catheter was draining well. He was given voiding trial. He had low-grade fever. ID was consulted. Probable sepsis versus postop. He was started empirically on cefepime pending culture reports. Pain management was consulted. He was given oxycodone IR and IM morphine for breakthrough pain. He was placed on [employer] morphine on demand dose with no basal or continuous rate. He was continued on Decadron 8 milligram, 4 times per day per outpatient oncologist recommendation. He was given SCDs for DVT prophylaxis. He was given physical therapy. Bragg catheter was removed. He was given voiding trials. He was weaned off the [employer] and was encouraged to use oral pain medications. On 12/23/2018, there was significant decrease in lumbar spine catheter drainage. Hemovac drain was taken off suction and indwelling lumbar spine drain catheter was removed. Tip was intact. Incision was clean and dry with no evidence of erythema or exudate. He failed voiding trial and Bragg catheter had to be reinserted. He was given Flomax. Dose was eventually increased to twice daily. Bragg catheter was again removed. He again underwent voiding trial. He was able to void, but still had high residuals. Patient did not want to go ARU, he wanted to be discharged home. He was thought on how to do self catheterization. Cultures had been negative. Leukocytosis may have been reactive, no infection was found. Antibiotics were discontinued. He had good pain control. He was eventually discharged home with home health. FINAL DIAGNOSES: Loss of bowel and bladder function most likely due to cord compression with T11- 12 paraparesis Multiple myeloma metastatic to bone Hyponatremia Leukocytosis, possibly reactive BPH Neurogenic bladder Urinary retention Lower urinary tract symptoms and incontinence Thoracic spinal stenosis PROCEDURE: 1. T10-T11, T12, L1, L2, L3 posterior spinal fusion. 2. T10 through L3 nonsegmental instrumentation using [employer] cannulated and fenestrated screws. 3. Vertebral augmentation with cement, T10, T11, L1, L2 bilaterally. 4. Laminectomy and resection of tumor, T11 and T12, right side. 5. Pediclectomy, vertebrectomy right side T12. 6. Neurodiagnostic monitoring, use of fluoroscopy for supervision and use of operating microscope. DISPOSITION: [place] home with home health. DISCHARGE MEDICATIONS: Refer to Discharge Medication List. DISCHARGE INSTRUCTIONS: Follow-up in a week. I have been assigned to complete a discharge summary on this account, I was not involved with the patient's management. Glory Vick NP Dec 27, 2018 12:35
--- NOTE | 2018-12-27 12:45 | Diagnostic Imaging Report ---
APPROVED REPORT CPT Code: 11396 Present Symptoms Comments: BILATERAL LEGS PAIN. BILATERAL: Imaging reveals a patent deep venous system bilaterally. There is no evidence of thrombus within the femoral, popliteal or tibial segments. The greater saphenous veins are also within normal limits. Doppler indicates normal spontaneous flow within these segments.
[2018-12-27] MEDS ORDERED: FLOMAX0.4 MG ORAL (13:04)
[2018-12-27] MEDS ORDERED: URECHOLINE25 M1 ORAL (13:04)
--- NOTE | 2018-12-27 15:00 | NUR ---
NURSE NOTES: Prescription received from Dr. Vanegas and faxed to the pharmacy RN called and checked with the patient if he receive the medication pt. stated 'pharmacy called and they will deliver the medication home today". the original prescription left with charge nurse.
== END 2018-12-26 10:50 | disposition home health service (06) | DRG 460 ==
LOC: EMR 22:30 → 3E 23:09 → EDBEDREQ 23:33 → 3E 12-21 02:09
PROC: 0RG70J1 Fusion of 2 to 7 Thoracic Vertebral Joints with Synthetic Substitute, Posterior Approach, Posterior Column, Open Approach (ICD-10-PCS; principal; 2018-12-21 11:30)
PROC: 0PB40ZZ Excision of Thoracic Vertebra, Open Approach (ICD-10-PCS; principal; 2018-12-21 11:30)
PROC: 30233N1 Transfusion of Nonautologous Red Blood Cells into Peripheral Vein, Percutaneous Approach (ICD-10-PCS; principal; 2018-12-21 11:30)
PROC: 0SG00J1 Fusion of Lumbar Vertebral Joint with Synthetic Substitute, Posterior Approach, Posterior Column, Open Approach (ICD-10-PCS; principal; 2018-12-21 11:30)
DX: M48.04 Spinal stenosis, thoracic region (principal); G95.29 Other cord compression; E87.1 Hypo-osmolality and hyponatremia; C90.02 Multiple myeloma in relapse; C79.51 Secondary malignant neoplasm of bone; G82.20 Paraplegia, unspecified; M48.54XA Collapsed vertebra, not elsewhere classified, thoracic region, initial encounter for fracture; N40.1 Benign prostatic hyperplasia with lower urinary tract symptoms; R33.8 Other retention of urine; N31.8 Other neuromuscular dysfunction of bladder; Z79.82 Long term (current) use of aspirin; Z91.040 Latex allergy status; Z79.899 Other long term (current) drug therapy; M10.9 Gout, unspecified; E66.9 Obesity, unspecified; Z68.27 Body mass index [BMI] 27.0-27.9, adult
CPT/HCPCS: 36415; 71045; 72020; 72070; 72128; 72131; 72146; 72148; 76000; 80048; 80053; 81003; 83735; 84100; 84443; 85007; 85025; 85610; 85730; 86850; 86900; 86901; 86920; 87040; 93005; 93970; 94003; 94150; 96361; 96374; 96375; 99285; J2250; J2405; J2710

== ENCOUNTER 2019-02-04 14:38 | Emergency (ER) | payer BC ==
[~2019-02-04] VITALS: Ht 180.3 cm; Wt 83.9 kg
[~2019-02-04 14:38] MED LIST: ALLOPURINOL300 M1 ORAL; ASPIR 8181 MG ORAL; DEXAMETHASONE2 MG PO; FLOMAX0.4 MG ORAL; LYRICA75 M1 ORAL; NORCO 5-325 TA1 EACH ORAL; OXYCODONE HCL5 MG ORAL; REVLIMID10 MG PO; URECHOLINE25 M1 ORAL; VALACYCLOVIR500 MG ORAL
--- NOTE | 2019-02-04 15:05 | NUR ---
ED Nurse Note: pt presents from home with family. pt a/ox4. states that over few days has been having progressing weakness to lower ext with no numbness or tingling. states he was to get an MRI but was unable to weight bear today on legs. leg strength noted to be R>L and hand grasps strong and equal. states he is having back pain now. states no hesitation with urination and contiues to be on multiple meds to combat constipation that he normally experiences.
--- NOTE | 2019-02-04 15:10 | NUR ---
ED Nurse Note: pt to mri scan after iv/lab draw pt aware to obtain urine sample when able. family at bs and aware of plan
[2019-02-04 15:36] LABS: BASOPHILS % (AUTO) 0.5 % (0.0-2.0); HEMATOCRIT 29.6 % (42.0-52.0); HEMOGLOBIN 10.5 G/DL (14.2-18.0); LYMPHOCYTES % (AUTO) 9.8 % (20.0-45.0); MEAN CORPUSCULAR VOLUME 88 FL (80-99); MONOCYTES % (AUTO) 9.2 % (1.0-10.0); NEUTROPHILS % (AUTO) 80.5 % (45.0-75.0); PLATELET COUNT 343 K/UL (150-450); RED BLOOD COUNT 3.35 M/UL (4.70-6.10); RED CELL DISTRIBUTION WIDTH 11.8 % (11.6-14.8); WHITE BLOOD COUNT 6.3 K/UL (4.8-10.8)
[2019-02-04] MEDS ORDERED: HYDROcodone/Acetamin 5/325 tab ORAL PRN (15:45)
[2019-02-04] MEDS ORDERED: LORazepam Inj 2mg/ml 1ml IV PRN (15:45)
[2019-02-04] MEDS ORDERED: Zolpidem 5mg tab ORAL PRN (15:45)
[2019-02-04] MEDS ORDERED: Morphine Sulfate 2mg/ml Inj(IV/IM USE ONLY) IVP PRN (15:45)
[2019-02-04] MEDS ORDERED: Miralax 17gm pkt ORAL PRN (15:45)
[2019-02-04] MEDS ORDERED: oxyCODONE 5mg IR tab ORAL PRN (15:45)
[2019-02-04 15:47] LABS: ANION GAP 11 mmol/L (5-15); BLOOD UREA NITROGEN 15 mg/dL (7-18); CALCIUM 10.7 MG/DL (8.5-10.1); CARBON DIOXIDE 25 MMOL/L (21-32); CHLORIDE 97 MMOL/L (98-107); CREATININE 0.6 MG/DL (0.55-1.30); POTASSIUM 4.1 MMOL/L (3.5-5.1); SODIUM 133 MMOL/L (136-145)
[2019-02-04 15:52] LABS: ALANINE AMINOTRANSFERASE 31 U/L (12-78); ALBUMIN 3.6 G/DL (3.4-5.0); ALKALINE PHOSPHATASE 77 U/L (46-116); ASPARTATE AMINO TRANSFERASE 10 U/L (15-37); BILIRUBIN,TOTAL 0.3 MG/DL (0.2-1.0)
--- NOTE | 2019-02-04 17:30 | NUR ---
ED Nurse Note: pt back from mri
--- NOTE | 2019-02-04 17:35 | NUR ---
called transfer center at [facility] given the report but i am waiting for printed mri repot
--- NOTE | 2019-02-04 17:55 | Diagnostic Imaging Report ---
Indication: History of multiple myeloma. History of cord compression at T12 requiring surgery. Status post interval posterior fusion and debulking at T12. Patient initially improved post operatively but now presents with progressive weakness in the lower extremities. Technique: MRI examination of the thoracic and lumbar spine was performed in a 1.5 Reena magnet. Sequences obtained include sagittal and axial T1 and T2 fast spin echo, and sagittal STIR. Pre and post gadolinium multiplanar T1. Comparison: MRI of thoracic lumbar spine preoperative 12/21/2018 Findings: MR thoracic spine: At the lower level of T8 and in the upper part of T9, there is new epidural mass on the right side of the spinal canal causing severe, new cord compression with displacement of the thecal sac and cord toward the left side. Tumor is associated with the T9 vertebra, right T9 pedicle and lamina and results in obliteration of the right T8-9 neural foramen. Enhancing tumor occupies about 60% of the central canal with complete effacement of CSF. The cord does not exhibit abnormal signal and remains homogeneous. On the prior occasion there was a small right epidural mass in this location but this has shown dramatic interval increase in size. In addition, there is moderate to severe cord compression at T11 and at T12 secondary to bulky epidural tumor contiguous with portions of the T11 and T12 vertebra, pedicles. Moderate retropulsion of T12 vertebra noted once again. All of the CSF appears effaced in these 2 locations. The thecal sac at T11 is compressed and displaced toward the left with extensive tumor circumferentially surrounding the thecal sac. Tumor extends through the neural foramen and there is extensive right-sided paravertebral and paraspinous tumor, which has increased in size considerably since the last study. On transaxial images the paravertebral tumor results in displacement of the diaphragmatic shree on the right. At T3, there is evidence of a small right epidural mass abutting the right aspect of the cord without displacement. The epidural mass is contiguous with involvement of the right T3 pedicle and vertebral body. A small anterolateral right sided epidural mass at T4 noted with contiguous involvement of the T4 vertebra. There is slight abutting of the cord. At T6 there is a small epidural mass along the left side abutting the cord without displacement. Bulky tumor involves the left lamina and transverse process at this level. Multiple visualized ribs are involved by tumor. This has in general increased and appears worse than on the prior occasion. For example, there is a 4 cm mass involving the left posterior third rib. At T2 and T3 there is an approximately 5 cm soft tissue mass involving the mid to posterior part of the spinous process at both of these levels with mass extending beyond the muscular fascia into the subcutaneous fat posteriorly. Gadolinium was given and in general there is fairly intense enhancement of tumor. The post gadolinium images are limited by presence of hardware and susceptibility artifacts. MRI lumbar spine: Interval debulking surgery at T12 has been performed. The patient has had interval placement of bilateral interpedicular screws and fusion rods at T10, T11, L1, L2 and L3. L1 through the visualized sacrum demonstrates interval worsening bone marrow replacement in multiple locations indicative of progressively worsening myeloma. L1 through the visualized sacral spine shows no evidence of thecal sac compression or neural compromise at the level of the intrathecal nerve roots or exiting foraminal nerve roots. Prominent areas of bone marrow placement involving the L1 and L2 vertebra appear increased in size and extent. Soft tissue mass developing about the left L2 transverse process measuring 3.5 x 2.7 cm on transaxial images noted. Greater areas of bone involvement involving the bilateral sacral ala and bilateral visualized portions of the iliac bone are demonstrated. IMPRESSION: Interval development of new severe cord compression at T8-9 secondary to bulky right-sided epidural tumor contiguous with myeloma involving right T9 lamina, pedicle and vertebra. Obliteration of the right T8-9 neural foramen. Continued severe cord compression at T11 and T12 secondary to progressively worsening epidural tumor contiguous with the T11 and T12 level myeloma. s/p interval debulking of tumor at this level. Despite this, tumor at this level appears considerably larger than on pre-operative MRI from 12/21/2018. Interval posterior fusion T10-L3. Evidence of progressively worsening myeloma with aggressive enlarging foci of bone marrow replacement involving portions of the thoracic, lumbar spine and sacrum/ileum, multiple ribs. Critical value communication. Findings were discussed via telephone with Dr. Harshad Abrams via telephone at about 4:30 PM 02/04/2019.
--- NOTE | 2019-02-04 17:56 | NUR ---
ED Nurse Note: pt to be HLOC transfer. pt to remain npo at this time. md updating pt and family. no change in symptoms of pt. no increased weakness or dyspnea noted.
[2019-02-04] MEDS ORDERED: Lyrica 75mg cap ORAL SCH (18:00)
--- NOTE | 2019-02-04 18:05 | NUR ---
[facility] and ailyn regarding the transfer
[2019-02-04 18:18] VITALS: BP 130/77
[2019-02-04] MEDS ORDERED: Morphine Sulfate 4mg/ml Inj (IV USE ONLY) IVP ONE ×2 (18:30→20:00)
--- NOTE | 2019-02-04 18:38 | NUR ---
ED Nurse Note: pt requesting to have in and out st. cath urine done as he feels urge to void but states unable to utilize urinal. done and pt tolerates well ua sent
[2019-02-04 18:52] LABS: APPEARANCE,URINE CLEAR; BILIRUBIN, URINE NEGATIVE (NEGATIVE); COLOR,URINE PALE YELLOW; GLUCOSE, URINE (UA) NEGATIVE (NEGATIVE); KETONES,URINE 1+ (NEGATIVE); LEUKOCYTE ESTERASE ,URINE 1+ (NEGATIVE); NITRITE,URINE NEGATIVE (NEGATIVE); PH,URINE 5 (4.5-8.0); PROTEIN,URINE 2+ (NEGATIVE); UROBILINOGEN,URINE NORMAL MG/DL (0.0-1.0)
--- NOTE | 2019-02-04 19:01 | NUR ---
ED Nurse Note: pt aware and agrees to HLOC to [facility]. pt relates pain has decreased some. family remains at bs.
--- NOTE | 2019-02-04 19:10 | Emergency Room Report ---
History of Present Illness General Chief Complaint: Back Injury Source: Patient Present Illness HPI 53-year-old male presents ED for evaluation. Patient brought in by wheelchair from home. Patient is complaining of weakness in his legs. Back pain. History of multiple myeloma and had surgery here in December. Patient states for the last few weeks he is been having increasing weakness in the legs and has had frequent falls. Pain is dull, 5 out of 10, nonradiating. Denies any incontinence. Denies any fevers or chills. Is currently getting chemotherapy in outpatient setting. No other aggravating relieving factors. Denies any other associated symptoms Allergies: Coded Allergies: LATEX (Verified Allergy, Unknown, 12/20/18) Patient History Past Medical History: other - multiple myeloma Past Surgical History: none Pertinent Family History: none Social History: Denies: smoking, alcohol use, drug use Immunizations: UTD Reviewed Nursing Documentation: PMH: Agreed; PSxH: Agreed Nursing Documentation-PMH Past Medical History: No History, Except For Hx Cardiac Problems: No - bone marrow ca back surgery Hx Cancer: No Hx Gastrointestinal Problems: No Hx Neurological Problems: No Review of Systems All Other Systems: negative except mentioned in HPI Physical Exam Vital Signs Date Time Temp Pulse Resp B/P (MAP) Pulse Ox O2 Delivery O2 Flow Rate FiO2 02/04/19 14:47 97.7 110 16 93 Room Air 02/04/19 18:18 130/77 Sp02 EP Interpretation: reviewed, normal General Appearance: no apparent distress, alert, GCS 15, non-toxic Head: normocephalic, atraumatic Eyes: bilateral eye normal inspection, bilateral eye PERRL ENT: hearing grossly normal, normal pharynx, no angioedema, normal voice Neck: full range of motion, supple/symm/no masses Respiratory: chest non-tender, lungs clear, normal breath sounds, speaking full sentences Cardiovascular #1: regular rate, rhythm, no edema Cardiovascular #2: 2+ carotid (R), 2+ carotid (L), 2+ radial (R), 2+ radial (L) , 2+ dorsalis pedis (R), 2+ dorsalis pedis (L) Gastrointestinal: normal bowel sounds, non tender, soft, non-distended, no guarding, no rebound Rectal: deferred Genitourinary: normal inspection, no CVA tenderness Musculoskeletal: back normal, gait/station normal, normal range of motion, non- tender Neurologic: alert, oriented x3, responsive, sensory intact, speech normal, motor weakness Psychiatric: judgement/insight normal, memory normal, mood/affect normal, no suicidal/homicidal ideation Reflexes: 3+ bicep (R), 3+ bicep (L), 3+ tricep (R), 3+ tricep (L), 3+ knee (R) , 3+ knee (L) Skin: normal color, no rash, warm/dry, well hydrated Lymphatic: no adenopathy Procedures Critical Care Time Critical Care Time i. I feel this is a highly complex case requiring extensive working including EKG/Rhythm strip, Xray/CT/US, Blood/urine lab work, repeat exams while in ED, and administration of strong opiates/narcotics for pain control, admission to hospital or close patient follow up. Total time: 75 min bedside evaluation and treatment excludes procedures (EKG). Reason for critical care: leg weakness, cord compression, multiple myeloma Possible complications: hypotension, hypertension, AK, shock, arrhythmias, metabolic acidosis, end organ damage, respiratory failure. Interventions: labs, MRI of T and L spine. Discussion with spinal surgery. Higher-level care transferred Course: Patient presenting with leg weakness. History of multiple myeloma. MRI of T and L-spine show core compression of multiple levels. Discussed with orthopedics/spine. Agreed that patient requires higher level of care transferred to [facility] for radiation oncology. Discussed with accepting team at [facility] Consultations: nursing staff, EMS, family Performed by: Dr Hayward Tolerated well condition = serious j. because of unstable vital signs this patient had a condition that could potentially threaten life or limb. I feel this is a critical patient who required my full attention while patient was considered critical. Total Critical Care Time excluding procedures was greater than 35 minutes Medical Decision Making Diagnostic Impression: Primary Impression: Metastatic multiple myeloma to bone Additional Impressions: Multiple myeloma Qualified Codes: C90.00 - Multiple myeloma not having achieved remission Cord compression ER Course Hospital Course 53-year-old male presents with bilateral leg weakness. 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 After initial history and physical I ordered labs, IV fluids, UA, pain medication and MRI of T and L spine MRI of T and L-spine show cord compression at multiple levels Discussed with orthopedics/spine Dr. Abrams; patient will require higher level care transferred to [facility] for radiation oncology and further treatment Discussed findings with patient Patient accepted by [facility] for however level of care transferred I feel this is a highly complex case requiring extensive working including EKG/ Rhythm strip, Xray/CT/US, Blood/urine lab work, repeat exams while in ED, and administration of strong opiates/narcotics for pain control, admission to hospital or close patient follow up. Diagnosis - metastatic multiple myeloma to bone. Cord compression Transferred in serious condition Labs Test 02/04/19 15:20 02/04/19 18:40 White Blood Count 6.3 K/UL (4.8-10.8) Red Blood Count 3.35 M/UL (4.70-6.10) Hemoglobin 10.5 G/DL (14.2-18.0) Hematocrit 29.6 % (42.0-52.0) Mean Corpuscular Volume 88 FL (80-99) Mean Corpuscular Hemoglobin 31.3 PG (27.0-31.0) Mean Corpuscular Hemoglobin Concent 35.5 G/DL (32.0-36.0) Red Cell Distribution Width 11.8 % (11.6-14.8) Platelet Count 343 K/UL (150-450) Mean Platelet Volume 5.6 FL (6.5-10.1) Neutrophils (%) (Auto) 80.5 % (45.0-75.0) Lymphocytes (%) (Auto) 9.8 % (20.0-45.0) Monocytes (%) (Auto) 9.2 % (1.0-10.0) Eosinophils (%) (Auto) 0.0 % (0.0-3.0) Basophils (%) (Auto) 0.5 % (0.0-2.0) Sodium Level 133 MMOL/L (136-145) Potassium Level 4.1 MMOL/L (3.5-5.1) Chloride Level 97 MMOL/L (98-107) Carbon Dioxide Level 25 MMOL/L (21-32) Anion Gap 11 mmol/L (5-15) Blood Urea Nitrogen 15 mg/dL (7-18) Creatinine 0.6 MG/DL (0.55-1.30) Estimat Glomerular Filtration Rate > 60 mL/min (>60) Glucose Level 129 MG/DL (74-106) Calcium Level 10.7 MG/DL (8.5-10.1) Total Bilirubin 0.3 MG/DL (0.2-1.0) Aspartate Amino Transf (AST/SGOT) 10 U/L (15-37) Alanine Aminotransferase (ALT/SGPT) 31 U/L (12-78) Alkaline Phosphatase 77 U/L (46-116) Total Protein 7.2 G/DL (6.4-8.2) Albumin 3.6 G/DL (3.4-5.0) Globulin 3.6 g/dL Albumin/Globulin Ratio 1.0 (1.0-2.7) Urine Color Pale yellow Urine Appearance Clear Urine pH 5 (4.5-8.0) Urine Specific Lindsay 1.015 (1.005-1.035) Urine Protein 2+ (NEGATIVE) Urine Glucose (UA) Negative (NEGATIVE) Urine Ketones 1+ (NEGATIVE) Urine Blood Negative (NEGATIVE) Urine Nitrite Negative (NEGATIVE) Urine Bilirubin Negative (NEGATIVE) Urine Urobilinogen Normal MG/DL (0.0-1.0) Urine Leukocyte Esterase 1+ (NEGATIVE) Urine RBC 0-2 /HPF (0 - 0) Urine WBC 2-4 /HPF (0 - 0) Urine Squamous Epithelial Cells None /LPF (NONE/OCC) Urine Bacteria Occasional /HPF (NONE) CT/MRI/US Diagnostic Results CT/MRI/US Diagnostic Results : Imaging Test Ordered: MRI T and L spine Impression nterval development of new severe cord compression at T8-9 secondary to bulky right-sided epidural tumor contiguous with myeloma involving right T9 lamina, pedicle and vertebra. Obliteration of the right T8-9 neural foramen. Continued severe cord compression at T11 and T12 secondary to progressively worsening epidural tumor contiguous with the T11 and T12 level myeloma. s/p interval debulking of tumor at this level. Despite this, tumor at this level appears considerably larger than on pre-operative MRI from 12/21/2018. Interval posterior fusion T10-L3. Evidence of progressively worsening myeloma with aggressive enlarging foci of bone marrow replacement involving portions of the thoracic, lumbar spine and sacrum/ ileum, multiple ribs. Last Vital Signs Date Time Temp Pulse Resp B/P (MAP) Pulse Ox O2 Delivery O2 Flow Rate FiO2 02/04/19 18:18 106 20 130/77 99 Room Air 02/04/19 14:47 97.7 Status: improved Disposition: XFER SHT-TRM HOSP Condition: Serious Referrals: Harshad Abrams MD (PCP) Michael Hayward MD February 04, 2019 19:10
--- NOTE | 2019-02-04 19:16 | NUR ---
ED Nurse Note: report to rn libby assuming care. aware of pending [facility]LOC transfer. pt request to lie on side, rn to inquire with md. pt remains npo
--- NOTE | 2019-02-04 19:25 | NUR ---
ED Nurse Note: RECIEVED REPORT FROM AM NURSE TO [facility]ME [facility], PT IS LYING INB ED SUPINE, AWAKE, LAERT AND ORIENTED X 4, PT WAITING FOR SCHEDULED TRANSFER TO [facility] FOR HIGHER LEVEL OF CARE, PT HAS PATENT SALINE LOCK AND ON CARDIAC MONITORING, PT SON AT BEDSIDE, PT HAS BACK PAIN AT 5/10, RECENTLY MEDICATED AND STATING MEDS NOT EFFECTIVE, PT ASKING FOR MOR PIN MEDS, WILL INFORM MD AND RESUME CARE ORDERED AND PREPARE FOR HOSPITAL TRANSFER.
[2019-02-04 19:35] VITALS: BP 127/78
--- NOTE | 2019-02-04 20:00 | NUR ---
ED Nurse Note: [facility] HAS ARRIVED FOR PT TRANSPORT, PLACED CALL TO [facility] AT [phone], REPORT GIVEN TO DYAN PRICE ON UNIT, PT IS TO BE TRANSFERED TO, PT IS AWAKE AND ALERT, SON AT BEDSIDE AND PT MEDICATD FOR PAIN PRIOR TO LEAVING, PT TAKEN VIA AMBULANCE, HAS ALL BELONGINGS AND TRANSFER PACKET, [id number] AND REPORT TO NADIYA VILLALBA NOTED DURING PT TRANSPORT.
[2019-02-04 20:17] VITALS: BP 127/78
[2019-02-04] MEDS ORDERED: Tamsulosin 0.4mg cap ORAL SCH (21:00)
== END 2019-02-04 20:18 | disposition short-term general hospital (02) ==
LOC: EMR 15:23 → EDBEDREQ 15:55 → EMR 20:18
DX: C90.00 Multiple myeloma not having achieved remission (principal); G95.20 Unspecified cord compression; Z91.040 Latex allergy status
CPT/HCPCS: 36415; 72147; 72148; 80053; 81003; 85025; 96374; 96376; 99291; A9585; J2270